=== PATIENT | female | born 1930 | race Caucasian/White ===

== ENCOUNTER → 2016-07-30 | Outpatient (CLI) | payer BC ==
[~2016-07-30] MED LIST: AMLO-110 PO; ARC5 PO; ATEN50TA PO; ATOR-26 PO; LEVO75TA PO; PANT40TA PO; PARO1TAB27 PO; TOLT4CAP PO; WARF2TAB8 PO
[2016-07-30 18:42] LABS: INR 1.3 (0.9-1.1); PROTHROMBIN TIME (PATIENT) 14.1 SECONDS (9.0-12.0)
== END | disposition home or self-care (01) ==
LOC: C.LABSPEC 17:23
PROVIDERS: ATTEND Internal Medicine
DX: Z51.81 Encounter for therapeutic drug level monitoring (principal); Z79.01 Long term (current) use of anticoagulants; Z86.711 Personal history of pulmonary embolism

== ENCOUNTER → 2016-08-27 | Outpatient (CLI) | payer BC ==
[2016-08-27 19:24] LABS: INR 2.7 (0.9-1.1); PROTHROMBIN TIME (PATIENT) 29.9 SECONDS (9.0-12.0)
== END | disposition home or self-care (01) ==
LOC: C.LABSPEC 16:00
PROVIDERS: ATTEND Internal Medicine
DX: Z86.711 Personal history of pulmonary embolism (principal); Z79.01 Long term (current) use of anticoagulants

== ENCOUNTER → 2016-10-01 | Outpatient (CLI) | payer BC ==
[2016-10-01 18:32] LABS: PROTHROMBIN TIME (PATIENT) 45.4 SECONDS (9.0-12.0)
== END | disposition home or self-care (01) ==
LOC: C.LABSPEC 17:32
PROVIDERS: ATTEND Internal Medicine
DX: Z86.711 Personal history of pulmonary embolism (principal); Z79.01 Long term (current) use of anticoagulants

== ENCOUNTER → 2016-10-29 | Outpatient (CLI) | payer BC ==
[2016-10-29 18:11] LABS: INR 1.8 (0.9-1.1); PROTHROMBIN TIME (PATIENT) 20.2 SECONDS (9.0-12.0)
== END | disposition home or self-care (01) ==
LOC: C.LABSPEC 17:21
PROVIDERS: ATTEND Internal Medicine
DX: Z86.711 Personal history of pulmonary embolism (principal); Z79.01 Long term (current) use of anticoagulants

== ENCOUNTER → 2016-11-19 | Outpatient (CLI) | payer BC ==
--- NOTE | 2016-11-19 14:53 | DIAGNOSTIC IMAGING REPORT ---
BILATERAL CAROTID DOPPLER STUDY HISTORY: CAROTID ARTERY STENOSIS, PT TO CPL AFTER COMPARISON: Carotid Doppler 08/02/2012. TECHNIQUE: Real-time, grayscale, and color Doppler sonography of the carotid arteries was performed. Imaging reviewed in the transverse and longitudinal planes. All measurements were calculated based on NASCET criteria. FINDINGS: Antegrade flow within the right vertebral artery and retrograde flow within the left vertebral artery. The brachial pressures are asymmetric measuring 164/84 on the right and 128/70 on the left. There is an associated elevated velocity within the right subclavian artery of 205 cm/s consistent with an area of stenosis. Normal velocities within the left subclavian artery which demonstrate monophasic flow. Mild calcified plaque within the bilateral carotid bifurcations. The peak systolic velocity within the right ICA is 94 cm/s. The right systolic ratio is 1.7. The peak systolic velocity within the left ICA is 159 cm/s at the mid portion. The left systolic ratio is 2.1. IMPRESSION: 1. Approximately 50-69% stenosis within the mid left internal carotid artery. 2. No hemodynamically significant stenosis within the right internal carotid artery. 3. 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 4. Monophasic waveform seen within the left subclavian artery with retrograde flow of the left vertebral artery. This favors a subclavian steal. Electronically signed by: Blas Self M.D. 11/19/2016 2:52 PM Dictated Date/Time: 11/19/2016 2:42 PM
--- NOTE | 2016-11-19 16:36 | ECHOCARDIOGRAM REPORT ---
*NOTICE TO RECEIVING LIBERTARIAN AGENCY This information is strictly Confidential and protected under [place] law. [place] law prohibits you from making any further disclosure of this information unless further disclosure is expressly permitted by the written consent of the person to whom it pertains or is authorized by law. A general authorization for the release of medical or other information is not sufficient for this purpose. Hospital accepts no responsibility if the information is made available to any other person, INCLUDING THE PATIENT. Interpretation Summary * Name: PENG KELLY Study Date: 11/19/2016 02:46 PM BP: 177/58 mmHg * Patient Location: [facility] HR: 60 * : 1930 (M/d/yyyy) Gender: Female Height: 63 in * Age: 86 yrs Ethnicity: CA Weight: 171 lb * Ordering Physician: Fabian Matthew * Referring Physician: Fabian Matthew * Performed By: Antonino Sierra RCS * * Reason For Study: AORTIC STENOSIS * BSA: 1.8 m2 * -- Conclusions -- * There is mild concentric left ventricular hypertrophy. * Left ventricular systolic function is normal. * Diastolic function appears normal. * The left atrium is moderately dilated. * The right atrium is mildly dilated. * Moderate aortic regurgitation. * No hemodynamically significant valvular aortic stenosis. * There is mild to moderate mitral regurgitation. * Right ventricular systolic pressure is normal. * Compared to an echocardiogram from 2014, the degree of aortic stenosis is essentially unchanged. The degree of aortic regurgitation is worse. Procedure Details * The study was diagnostic quality. Left Ventricle * The left ventricle is normal in size. * There is mild concentric left ventricular hypertrophy. * Left ventricular systolic function is normal. * Diastolic function appears normal. Right Ventricle * The right ventricle is normal in size and function. * The right ventricular systolic function is normal as assessed by tricuspid annular plane systolic excursion (TAPSE) (normal >1.5 cm). Atria * The left atrium is moderately dilated. * The right atrium is mildly dilated. Mitral Valve * The mitral valve is grossly normal. * There is mild to moderate mitral regurgitation. Tricuspid Valve * The tricuspid valve is not well visualized, but is grossly normal. * There is mild tricuspid regurgitation. * Right ventricular systolic pressure is normal. Aortic Valve * Aortic valve sclerosis mild, without significant aortic valvular stenosis. * No hemodynamically significant valvular aortic stenosis. * Moderate aortic regurgitation. Great Vessels * The aortic root is normal size. Pericardium/Pleural * There is no pericardial effusion. Great Vessels * Normal inferior vena cava diameter and respiratory variation suggests normal central venous pressure. MMode 2D Measurements and Calculations IVSd 1.4 cm IVSs 1.6 cm LVIDd 3.6 cm LVIDs 2.3 cm LVPWd 1.4 cm LVPWs 1.7 cm IVS/LVPW 1.0 FS 35.4 % EDV(Teich) 52.8 ml ESV(Teich) 18.1 ml EF(Teich) 65.8 % EDV(cubed) 44.9 ml ESV(cubed) 12.1 ml EF(cubed) 73.0 % % IVS thick 11.4 % % LVPW thick 25.5 % LV mass(C)d 177.3 grams LV mass(C)dI 98.0 grams/m\S\2 LV mass(C)s 138.0 grams LV mass(C)sI 76.3 grams/m\S\2 CO(Teich) 2.1 l/min CI(Teich) 1.2 l/min/m\S\2 SV(Teich) 34.7 ml SI(Teich) 19.2 ml/m\S\2 CO(cubed) 2.0 l/min CI(cubed) 1.1 l/min/m\S\2 SV(cubed) 32.8 ml SI(cubed) 18.1 ml/m\S\2 Ao root diam 2.5 cm Ao root area 4.8 cm\S\2 ACS 0.96 cm LA dimension 4.6 cm asc Aorta Diam 2.9 cm LA/Ao 1.8 LVOT diam 1.8 cm LVOT area 2.5 cm\S\2 LVAd ap4 29.2 cm\S\2 LVLd ap4 7.6 cm EDV(MOD-sp4) 92.0 ml LVAs ap4 16.9 cm\S\2 LVLs ap4 6.2 cm ESV(MOD-sp4) 38.0 ml EF(MOD-sp4) 58.7 % LVAd ap2 23.5 cm\S\2 LVLd ap2 7.4 cm EDV(MOD-sp2) 62.0 ml LVAs ap2 12.3 cm\S\2 LVLs ap2 5.9 cm ESV(MOD-sp2) 21.0 ml EF(MOD-sp2) 66.1 % CO(MOD-sp4) 3.2 l/min CI(MOD-sp4) 1.8 l/min/m\S\2 SV(MOD-sp4) 54.0 ml SI(MOD-sp4) 29.8 ml/m\S\2 CO(MOD-sp2) 2.5 l/min CI(MOD-sp2) 1.4 l/min/m\S\2 SV(MOD-sp2) 41.0 ml SI(MOD-sp2) 22.7 ml/m\S\2 Doppler Measurements and Calculations MV E max les 85.6 cm/sec MV A max les 46.3 cm/sec MV E/A 1.9 MV P1/2t max les 119.3 cm/sec MV P1/2t 100.4 msec MVA(P1/2t) 2.2 cm\S\2 MV dec slope 347.8 cm/sec\S\2 MV dec time 0.16 sec Ao V2 max 204.9 cm/sec Ao max PG 16.9 mmHg Ao max PG (full) 10.4 mmHg Ao V2 mean 122.9 cm/sec Ao mean PG 7.5 mmHg Ao V2 VTI 46.5 cm BARRERA(V,A) 1.5 cm\S\2 BARRERA(V,D) 1.5 cm\S\2 AI max les 442.1 cm/sec AI max PG 78.2 mmHg AI dec slope 295.0 cm/sec\S\2 AI P1/2t 438.9 msec LV V1 max PG 6.5 mmHg LV V1 max 127.1 cm/sec SV(Ao) 223.7 ml SI(Ao) 123.6 ml/m\S\2 PA V2 max 77.4 cm/sec PA max PG 2.4 mmHg PI max les 162.7 cm/sec PI max PG 10.7 mmHg PI dec slope 158.8 cm/sec\S\2 PI P1/2t 300.1 msec TR max les 258.6 cm/sec
== END | disposition home or self-care (01) ==
LOC: C.ULTR 13:18
PROVIDERS: ATTEND Internal Medicine
DX: Q25.1 Coarctation of aorta (principal); I65.22 Occlusion and stenosis of left carotid artery

== ENCOUNTER → 2016-12-17 | Outpatient (CLI) | payer BC ==
[2016-12-17 18:43] LABS: PROTHROMBIN TIME (PATIENT) 22.2 SECONDS (9.0-12.0)
== END | disposition home or self-care (01) ==
LOC: C.LABSPEC 08:42
PROVIDERS: ATTEND Internal Medicine
DX: Z86.711 Personal history of pulmonary embolism (principal); Z79.01 Long term (current) use of anticoagulants

== ENCOUNTER → 2017-01-21 | Outpatient (CLI) | payer BC ==
[2017-01-21 17:48] LABS: HEMATOCRIT 40.8 % (37-47); MEAN CELL VOLUME 94.9 fL (80-100); MEAN CORPUSCULAR HEMOGLOBIN 31.4 pg (25-34); MEAN CORPUSCULAR HGB CONC 33.1 g/dl (32-36); MEAN PLATELET VOLUME 11.3 fL (7.4-10.4); PLATELET COUNT 360 K/uL (130-400); WHITE BLOOD COUNT 7.83 K/uL (4.8-10.8)
[2017-01-21 17:51] LABS: INR 1.8 (0.9-1.1); PROTHROMBIN TIME (PATIENT) 19.4 SECONDS (9.0-12.0)
[2017-01-21 17:56] LABS: ALT/SGPT 21 U/L (12-78); BLOOD UREA NITROGEN 10 mg/dl (7-18); BUN/CREATININE RATIO 8.7 (10-20); CALCIUM 9.1 mg/dl (8.5-10.1); CARBON DIOXIDE 26 mmol/L (21-32); CHLORIDE 107 mmol/L (98-107); GLUCOSE 140 mg/dl (70-99); POTASSIUM 3.7 mmol/L (3.5-5.1); SODIUM 140 mmol/L (136-145)
[2017-01-21 18:06] LABS: ALB/GLOB RATIO 0.7 (0.9-2); ALKALINE PHOSPHATASE 98 U/L (45-117); AST/SGOT 18 U/L (15-37)
== END | disposition home or self-care (01) ==
LOC: C.LABSPEC 16:53
PROVIDERS: ATTEND Internal Medicine
DX: R53.83 Other fatigue (principal); I10 Essential (primary) hypertension; E03.9 Hypothyroidism, unspecified

== ENCOUNTER → 2017-04-22 | Outpatient (CLI) | payer BC ==
[2017-04-22 17:51] LABS: BASO % 0.4 %; BASO ABS # 0.04 K/uL (0-0.2); COMPLETE YES; EOS % 1.9 %; HEMATOCRIT 39.9 % (37-47); IG% 0.3 %; LYMPH % 25.2 %; MEAN CELL VOLUME 94.8 fL (80-100); MEAN CORPUSCULAR HEMOGLOBIN 31.8 pg (25-34); MEAN CORPUSCULAR HGB CONC 33.6 g/dl (32-36); MEAN PLATELET VOLUME 11.3 fL (7.4-10.4); MONO % 8.5 %; NEUT % 63.7 %; PLATELET COUNT 371 K/uL (130-400); RED BLOOD COUNT 4.21 M/uL (4.2-5.4); WHITE BLOOD COUNT 10.71 K/uL (4.8-10.8)
[2017-04-22 18:05] LABS: ALT/SGPT 26 U/L (12-78); AST/SGOT 25 U/L (15-37); BLOOD UREA NITROGEN 12 mg/dl (7-18); CALCIUM 9.5 mg/dl (8.5-10.1); CARBON DIOXIDE 29 mmol/L (21-32); CHLORIDE 103 mmol/L (98-107); CHOLESTEROL 216 mg/dl (0-200); CREATININE 0.99 mg/dl (0.60-1.20); GLUCOSE 128 mg/dl (70-99); POTASSIUM 3.7 mmol/L (3.5-5.1); SODIUM 140 mmol/L (136-145)
[2017-04-22 18:12] LABS: ALB/GLOB RATIO 0.8 (0.9-2); ALKALINE PHOSPHATASE 102 U/L (45-117); CHOLESTEROL/HDL RATIO 4.6; HDL CHOLESTEROL 47 mg/dl; THYROID STIMULATING HORMONE 0.906 uIu/ml (0.300-4.500); TRIGLYCERIDES 337 mg/dl (0-150); VERY LOW DENSITY LIPOPROT CALC 67 mg/dl
== END | disposition home or self-care (01) ==
LOC: C.LABSPEC 17:29
PROVIDERS: ATTEND Internal Medicine
DX: I10 Essential (primary) hypertension (principal); E78.5 Hyperlipidemia, unspecified; E03.9 Hypothyroidism, unspecified; I26.99 Other pulmonary embolism without acute cor pulmonale; I82.409 Acute embolism and thrombosis of unspecified deep veins of unspecified lower extremity; Z51.81 Encounter for therapeutic drug level monitoring; Z79.01 Long term (current) use of anticoagulants

== ENCOUNTER → 2017-06-24 | Outpatient (CLI) | payer BC ==
[2017-06-24 19:26] LABS: INR 1.9 (0.9-1.1); PROTHROMBIN TIME (PATIENT) 20.6 SECONDS (9.0-12.0)
== END | disposition home or self-care (01) ==
LOC: C.LABSPEC 17:30
PROVIDERS: ATTEND Internal Medicine
DX: Z86.711 Personal history of pulmonary embolism (principal); Z79.01 Long term (current) use of anticoagulants

== ENCOUNTER 2017-07-25 17:43 | Inpatient (IN) | payer BC, OTHER ==
[~2017-07-25] VITALS: Ht 160 cm; Wt 73.3 kg
[2017-07-25] MEDS ORDERED: SODIUM CHLORIDE 0.9% 1000ML 1,000 ML IV STA (17:56)
[2017-07-25 17:57] VITALS: PULSE 90; O2SAT 94
[2017-07-25 18:19] LABS: BASO % 0.1 %; BASO ABS # 0.02 K/uL (0-0.2); EOS % 0.2 %; EOS ABS # 0.03 K/uL (0-0.5); HEMATOCRIT 43.3 % (37-47); HEMOGLOBIN 14.5 g/dL (12.0-16.0); IG# 0.11 K/uL (0.00-0.02); LYMPH % 3.8 %; LYMPH ABS # 0.72 K/uL (1.2-3.4); MEAN CORPUSCULAR HEMOGLOBIN 32.2 pg (25-34); MEAN CORPUSCULAR HGB CONC 33.5 g/dl (32-36); MONO % 7.9 %; MONO ABS # 1.51 K/uL (0.11-0.59); NEUT % 87.4 %; NEUT ABS # 16.63 K/uL (1.4-6.5); PLATELET COUNT 352 K/uL (130-400); RED CELL DISTRIBUTION WIDTH CV 13.5 % (11.5-14.5); RED CELL DISTRIBUTION WIDTH SD 47.6 fL (36.4-46.3); WHITE BLOOD COUNT 19.02 K/uL (4.8-10.8)
[2017-07-25 18:27] LABS: INR 1.9 (0.9-1.1)
[2017-07-25 18:37] LABS: CALCIUM 8.8 mg/dl (8.5-10.1); CREATININE 1.46 mg/dl (0.60-1.20); POTASSIUM 3.8 mmol/L (3.5-5.1)
[2017-07-25 18:39] LABS: INFLUENZA B ANTIGEN Neg for Influ B (NEG)
[2017-07-25] MEDS ORDERED: CEFEPIME IV 1,000 MG in DEXTROSE 5% 100ML 100 ML IV STA (18:39)
[2017-07-25 18:44] LABS: CKMB 1.8 ng/ml (0.5-3.6); TOTAL PROTEIN 7.7 gm/dl (6.4-8.2)
[2017-07-25] MEDS ORDERED: PARO30TA6 PO (18:45)
[2017-07-25] MEDS ORDERED: DONE1TAB26 PO (18:45)
[2017-07-25] MEDS ORDERED: TOLT1CAP3 PO (18:45)
[2017-07-25] MEDS ORDERED: AMLO5TAB2 PO (18:45)
[2017-07-25] MEDS ORDERED: LEVO75TA5 PO (18:45)
[2017-07-25] MEDS ORDERED: PANT40TA PO (18:45)
[2017-07-25] MEDS ORDERED: ATOR-26 PO (18:45)
[2017-07-25] MEDS ORDERED: LEVAQUIN 750MG / 150ML D5W IV STA (18:50)
[2017-07-25] MEDS ORDERED: ACETAMINOPHEN 500 MG TAB PO STA (18:50)
[2017-07-25] MEDS ORDERED: MULT-1092 PO (18:53)
[2017-07-25] MEDS ORDERED: WARF4TAB43 PO ×2 (18:53)
[2017-07-25] MEDS ORDERED: FERR1TAB23 PO (18:53)
[2017-07-25] MEDS ORDERED: TPRSR/50 PO (18:53)
--- NOTE | 2017-07-25 19:23 | DIAGNOSTIC IMAGING REPORT ---
SINGLE VIEW CHEST CLINICAL HISTORY: Fever. Dyspnea. FINDINGS: An AP, portable, upright chest radiograph is compared to study dated 04/05/2014 and correlated with chest CT dated 06/26/2010. The examination is degraded by portable technique and patient rotation. A 2-lead cardiac pacemaker is unchanged in position and partially obscures the left lower chest. The heart is enlarged and there is atherosclerotic calcification of the thoracic aorta. There is pulmonary vascular congestion. A calcified mediastinal lymph node is again seen. Bilateral airspace opacities are identified. Small pleural effusions are noted. No pneumothorax is seen. The skeletal structures are osteopenic. The bony thorax is grossly intact. Complex splenic granulomas are noted in the left upper quadrant. IMPRESSION: 1. Cardiomegaly and cardiac pacemaker. There is evidence of congestive failure. 2. There are diffuse bilateral airspace opacities, likely represent interstitial edema. Correlate clinically for evidence of superimposed pneumonia. 3. Small pleural effusions are identified. Electronically signed by: Miguel Lozada M.D. 07/25/2017 7:21 PM Dictated Date/Time: 07/25/2017 7:20 PM
[2017-07-25] MEDS ORDERED: NSS + 20MEQ KCL 1000ML 1,000 ML IV SCH (20:00)
--- NOTE | 2017-07-25 20:14 | History and Physical ---
History & Physical Date & Time of Service: Jul 25, 2017 at 20:01 Chief Complaint: SOB, Primary Care Physician: Fabian Matthew M.D. History of Present Illness Source: patient 87 y/o F Hx HTN, HPL, PEs, pacer. Presents with fever cough and moderate respiratory distress. Initial P02 was in the mid 70s and systolic pressure has been between 85-100. She denies CP, N/V/D or dysuria - she was incontinent of urine and stool on arrival to the ER. Initial CXR may represent CHF and possibly B/L PNM. Labs reveal an elevated troponin, leukocytosis and SYLVIA. She had a normal echo earlier in the year and does not have a history of CHF. Past Medical/Surgical History 1) BL PE 2009 2) HTN 3) HPL 4) Depression 5) Hypothyroidism 6) Pacemaker - due to symptomatic Mobitz II 7) GERD 8) Cardiac cath 2006 - no CAD 9) Echo 2016 - normal systolic and diastolic function Family History Noncontributory due to pt age Social History Smoking Status: Never Smoker Occupational Status: retired Immunizations History of Influenza Vaccine: No Influenza Vaccine Date: Mar 27, 2010 History of Tetanus Vaccine?: Yes History of Pneumococcal: Yes Pneumococcal Date: Jun 12, 2008 History of Hepatitis B Vaccine: Unknown Multi-Drug Resistant Organisms History of MDRO: No Allergies Coded Allergies: Penicillins (Verified Allergy, Mild, 04/09/14) Clarithromycin (Verified Allergy, Unknown, 04/09/14) Home Medications Scheduled Amlodipine Besylate (Norvasc), 5 MG PO DAILY Atorvastatin (Lipitor), 80 MG PO DAILY Donepezil Hydrochloride (Donepezil Hcl), 10 MG PO DAILY Ferrous Sulfate (Iron), 325 MG PO DAILY Levothyroxine Sodium (Levothyroxine Sodium), 75 MCG PO DAILY Metoprolol Succinate (Metoprolol Succinate ER), 50 MG PO DAILY Multiple Vitamins W/ Minerals (Centrum Silver 50+Women), 1 TAB PO DAILY Pantoprazole (Protonix), 40 MG PO DAILY Paroxetine Hcl (Paroxetine Hcl), 30 MG PO DAILY Tolterodine Tartrate (Tolterodine Tartrate ER), 4 MG PO DAILY Warfarin Sodium (Warfarin Sodium), 2 MG PO 5XWK Warfarin Sodium (Warfarin Sodium), 3 MG PO 2XWK Review of Systems Constitutional: + fever, + chills, No sweats Eyes: No worsening of vision ENT: + nasal symptoms, No hearing loss Respiratory: + cough, + sputum, + shortness of breath, + dyspnea on exertion, + dyspnea at rest Cardiovascular: + orthopnea, No chest pain, No PND Abdomen: No pain, No nausea, No vomiting Musculoskeletal: No joint pain Genitourinary - Female: + urinary incontinence, No dysuria, No hematuria Neurologic: + weakness, No memory loss Psychiatric: No depression symptoms Endocrine: + fatigue Hematologic / Lymphatic: No abnormal bleeding/bruising Integumentary: No rash Physical Exam Vital Signs Date Time Temp Pulse Resp B/P (MAP) Pulse Ox O2 Delivery O2 Flow Rate FiO2 07/25/17 18:15 84 07/25/17 17:57 90 94 100 07/25/17 17:45 73 Room Air 07/25/17 17:45 38.9 86 32 91/70 73 Room Air General Appearance: + pertinent finding (Overweight, elderly female - AAO x 2 - no distress while wearing BIPAP) Head: normocephalic Eyes: normal inspection ENT: normal ENT inspection, pharynx normal Neck: supple, + JVD Respiratory/Chest: chest non-tender, + crackles (BL to mid lungs) Cardiovascular: regular rate, rhythm, + systolic murmur, + pertinent finding ( faint hear sounds) Abdomen/GI: normal bowel sounds, non tender, soft Back: normal inspection, no CVA tenderness Extremities/Musculoskelatal: normal inspection, no calf tenderness Neurologic/Psych: 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, no motor/sensory deficits, alert Skin: normal color, warm/dry Diagnostics Laboratory Results Results Past 24 Hours Test 07/25/17 17:14 07/25/17 18:05 07/25/17 18:10 07/25/17 18:17 Range/Units White Blood Count 19.02 4.8-10.8 K/uL Red Blood Count 4.51 4.2-5.4 M/uL Hemoglobin 14.5 12.0-16.0 g/dL Hematocrit 43.3 37-47 % Mean Corpuscular Volume 96.0 80-100 fL Mean Corpuscular Hemoglobin 32.2 25-34 pg Mean Corpuscular Hemoglobin Concent 33.5 32-36 g/dl Platelet Count 352 130-400 K/uL Mean Platelet Volume 11.0 7.4-10.4 fL Neutrophils (%) (Auto) 87.4 % Lymphocytes (%) (Auto) 3.8 % Monocytes (%) (Auto) 7.9 % Eosinophils (%) (Auto) 0.2 % Basophils (%) (Auto) 0.1 % Neutrophils # (Auto) 16.63 1.4-6.5 K/uL Lymphocytes # (Auto) 0.72 1.2-3.4 K/uL Monocytes # (Auto) 1.51 0.11-0.59 K/uL Eosinophils # (Auto) 0.03 0-0.5 K/uL Basophils # (Auto) 0.02 0-0.2 K/uL RDW Standard Deviation 47.6 36.4-46.3 fL RDW Coefficient of Variation 13.5 11.5-14.5 % Immature Granulocyte % (Auto) 0.6 % Immature Granulocyte # (Auto) 0.11 0.00-0.02 K/uL Prothrombin Time 19.2 9.0-12.0 SECONDS Prothromb Time International Ratio 1.9 0.9-1.1 Sodium Level 139 136-145 mmol/L Potassium Level 3.8 3.5-5.1 mmol/L Chloride Level 104 98-107 mmol/L Carbon Dioxide Level 26 21-32 mmol/L Anion Gap 9.0 3-11 mmol/L Blood Urea Nitrogen 15 7-18 mg/dl Creatinine 1.46 0.60-1.20 mg/dl Est Creatinine Clear Calc Drug Dose 25.8 ml/min Estimated GFR () 36.6 Estimated GFR (Non- 31.6 BUN/Creatinine Ratio 10.1 10-20 Random Glucose 156 70-99 mg/dl Calcium Level 8.8 8.5-10.1 mg/dl Magnesium Level 2.0 1.8-2.4 mg/dl Total Bilirubin 0.5 0.2-1 mg/dl Direct Bilirubin 0.1 0-0.2 mg/dl Aspartate Amino Transf (AST/SGOT) 30 15-37 U/L Alanine Aminotransferase (ALT/SGPT) 24 12-78 U/L Alkaline Phosphatase 92 45-117 U/L Total Creatine Kinase 103 26-192 U/L Creatine Kinase MB 1.8 0.5-3.6 ng/ml Creatine Kinase MB Ratio 1.7 0-3.0 Troponin I 0.470 0-0.045 ng/ml Total Protein 7.7 6.4-8.2 gm/dl Albumin 3.0 3.4-5.0 gm/dl Urine Color YELLOW Urine Appearance CLOUDY CLEAR Urine pH 5.0 4.5-7.5 Urine Specific [place] 1.021 1.000-1.030 Urine Protein 2+ NEG Urine Glucose (UA) NEG NEG Urine Ketones NEG NEG Urine Occult Blood TRACE NEG Urine Nitrite NEG NEG Urine Bilirubin NEG NEG Urine Urobilinogen NEG NEG Urine Leukocyte Esterase MODERATE NEG Urine WBC (Auto) >30 0-5 /hpf Urine RBC (Auto) 0-4 0-4 /hpf Urine Hyaline Casts (Auto) 1-5 0-5 /lpf Urine Epithelial Cells (Auto) 20-30 0-5 /lpf Urine Bacteria (Auto) 4+ NEG Influenza Type A Antigen Neg for Influ A NEG Influenza Type B Antigen Neg for Influ B NEG Venous Blood pH 7.35 7.36-7.41 Venous Blood Partial Pressure CO2 49 38.0-50.0 mmHg Venous Blood Partial Pressure O2 40 mmHg Venous Blood HCO3 27 mmol/L Venous Blood Oxygen Saturation 71.1 % Venous Blood Base Excess 0.2 mEq/L Test 07/25/17 18:22 Range/Units Microbiology Results 07/25/17 Blood Culture, Received Pending 07/25/17 Blood Culture, Received Pending 07/25/17 Urine Culture, Received Pending Diagnostic Radiology CXR: 1. Cardiomegaly and cardiac pacemaker. There is evidence of congestive failure. 2. There are diffuse bilateral airspace opacities, likely represent interstitial edema. Correlate clinically for evidence of superimposed pneumonia. 3. Small pleural effusions are identified EKG Sinus - possibly alternating with atrial pacing, RBBB - inferior inversion are present on previous EKG which was paced Impression Assessment and Plan 87 y/o F Hx HTN, HPL, PEs, pacer. Presents with fever cough and moderate respiratory distress. Initial P02 was in the mid 70s and systolic pressure has been between 85-100. She denies CP, N/V/D or dysuria - she was incontinent of urine and stool on arrival to the ER. Initial CXR may represent CHF and possibly B/L PNM. Labs reveal an elevated troponin, leukocytosis and SYLVIA. She had a normal echo earlier in the year and does not have a history of CHF. 1) Respiratory distress - this may be due to CHF, PNM or a combination. She has BL JVD - lung exam and imaging are consistent with CHF. Her pressure has been low however. In light of this, we will assign her to the ICU for additional management. We may need placement of a central line for induction and fluid management. 2) CHF - clinical volume overload is apparent despite a marginal BP. We will give her a dose of Lasix to assess improvement in her respiratory status. An echo is ordered. 3) Infection - presented with high temp - developed a cough and congestion prior to respiratory distress. UA is also strongly +. We have started her on Cefepime, Levaquin to cover for both urosepsis and critical pneumonia. She is provided with Duonebs/Albuterol and is on BIPAP at the time of admission. She has not recently been admitted to a health care facility. 4) Elevated troponin - an acute event leading to CHF cannot be ruled out, although her current trop elevation is more likely due to hypoxia and possibly hypotension leading to demand ischemia, in addition to her compromised renal function. She is anticoagulated with Coumadin. 5) SYLVIA - presents a management challenge due to her low BP and clinical overload - as mentioned, she is receiving a dose of Lasix presently and we may need central line induction for volume management. We would expect her SLYVIA to improve with diuresis if the main etiology is CHF. 6) HTN - Amlodipine held presently 7) Hypothyroidism - cont Synthroid 8) History of PE - pt is anticoagulated with Coumadin Code status: DNR - intubation OK Total time for this admit including review of labs, meds, imaging, EKG, records , previous echo - discussion with pt and ER attending - including critical care time - 45 min Level of Care Critical Care Resuscitation Status FULL NO CARDIOVERSION (No CPR - intubation OK) VTE Prophylaxis Given or contraindicated: Warfarin (Coumadin)
[2017-07-25] MEDS ORDERED: MoRPHine SULFATE 2 MG/ML CARP IV PRN (20:15)
[2017-07-25] MEDS ORDERED: ALBUTEROL 0.083% NEBU SOLN 3 ML VIAL INH PRN (20:15)
[2017-07-25] MEDS ORDERED: ALUMINUM/MAGNESIUM/SIMETH (MAALOX MAX) 30 ML UDC PO PRN (20:15)
[2017-07-25] MEDS ORDERED: POLYETHYLENE (MIRALAX) 17 GM PACK PO PRN (20:15)
[2017-07-25] MEDS ORDERED: MAGNESIUM HYDROXIDE SUSP 30 ML UDC PO PRN (20:15)
[2017-07-25] MEDS ORDERED: ONDANSETRON INJ 2 MG/ML 2 ML VIAL IV PRN (20:15)
[2017-07-25] MEDS: ALBUT/IPRATROP 3MG/0.5MG NEB 3 ML VIAL INH SCH (21:00)
--- NOTE | 2017-07-25 21:01 | Critical Care Consultation ---
Critical Care Consultation Date of Consultation: Jul 25, 2017. Attending Physician: Dr. Rojelio Hu Reason for Consultation: Respiratory Distress History of Present Illness Iman Manuel is an 87 yo female with history of Dementia, HTN, Hyperlipidemia, Pacemaker (2012) for Mobitz II block, hx/o GI Bleed 2/2 erosion and hypothyroidism who presented this evening via EMS for respiratory distress. Her O2 saturations were initially recorded in the 70's via EMS. 4L nasal cannula failed to cause adequate saturations. Breathing treatment and CPAP were initiated in the field. 100% FIO2 demonstrated >90% SaO2. Upon my examination pt is saturating 99-100% on 12/6 and 100% on BiPap. She is talking in complete sentences without notable SOB or accessory muscle use. She denies recent illness stating this started in the last 24 hours with cough, brown sputum without blood, and increasing shortness of breath. She denied myalgias or malaise. Did admit to anorexia today. Pt denies recent lay up, leg swelling, sudden onset of SOB. Pt does take Coumadin for prior hx of PE/DVT. EMR states Bilateral DVT/ PEs in 2006 and 2009 without Coumadin use. Pt denies chest pain/ pressure, palpitations or awareness of tachyarrhythmias. Denies N/V/D abd pain or change in bowel or bladder habits. Nursing report noted that family states pt can be incontinent of urine/stool at night, pt did not report this. Pt does live independently at this time. Upon reexamination in the ICU, patient states she is feeling much better. Sylvester catheter has been inserted with notably concentrated urine without gross hematuria. Blood pressures have improved with systolics ranging from 105-116. Upon arrival in ICU patient's BiPAP settings were reduced to 12/6 and 70%; saturations remain 95% and above. There is limited prior history on patient based on non-[facility] PCP. Patient does appear somewhat confused about prior history when asked. She did agree that she is on her Coumadin for a DVT/PE. However, she could not elaborate. Access to Dr. Chung's records from cardiology demonstrate a history of Mobitz 2 AV block, dual-chamber pacemaker placement, paroxysmal A. fib noted on pacemaker that lasts for only minutes. Prior echocardiogram read by Dr. Young on 2016 demonstrated the following conclusions: * There is mild concentric left ventricular hypertrophy * Left ventricular systolic function is normal * Diastolic function appears to be normal * Left atrium moderately dilated/right atrium mildly dilated * Moderate aortic regurgitation, mild to moderate mitral regurgitation, no hemodynamically significant valvular aortic stenosis. * Right ventricular systolic pressure is normal Patient was worked up on the same day carotid artery stenosis. Carotid Doppler demonstrated approximate 50-69% stenosis within the mid left internal carotid artery. No hemodynamically significant stenosis within the right internal carotid artery. 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 Monophasic waveforms seen within the left subclavian artery with retrograde flow of the left vertebral artery. This fever subclavian steal. Past Medical/Surgical History Medical Problems: Pneumonia Respiratory distress Troponin I above reference range Mobitz 2 AV block Paroxysmal Atrial fibrillation Hx of Bilateral DVT hx of Bilateral PE Bradycardia Hypertension Hyperlipidemia Hyperglycemia Hypothyroidism Depression/Anxiety Esophageal reflux Dementia Falls Fibula Fracture s/p fall Surgical history Pacemaker placement Family History Patient reports no known family medical history. Social History Smoking Status: Never Smoker Smokeless Tobacco Use: No Alcohol Use: occasionally (Reports 1 beer/week) Drug Use: none Housing Status: lives alone Occupation Status: retired Allergies Coded Allergies: Penicillins (Verified Allergy, Mild, 04/09/14) Clarithromycin (Verified Allergy, Unknown, 04/09/14) Home Medications Scheduled Amlodipine Besylate (Norvasc), 5 MG PO DAILY Atorvastatin (Lipitor), 80 MG PO DAILY Donepezil Hydrochloride (Donepezil Hcl), 10 MG PO DAILY Ferrous Sulfate (Iron), 325 MG PO DAILY Levothyroxine Sodium (Levothyroxine Sodium), 75 MCG PO DAILY Metoprolol Succinate (Metoprolol Succinate ER), 50 MG PO DAILY Multiple Vitamins W/ Minerals (Centrum Silver 50+Women), 1 TAB PO DAILY Pantoprazole (Protonix), 40 MG PO DAILY Paroxetine Hcl (Paroxetine Hcl), 30 MG PO DAILY Tolterodine Tartrate (Tolterodine Tartrate ER), 4 MG PO DAILY Warfarin Sodium (Warfarin Sodium), 2 MG PO 5XWK Warfarin Sodium (Warfarin Sodium), 3 MG PO 2XWK Current Inpatient Medications Current Inpatient Medications Medications (Trade) Dose Ordered Sig/Rex Route Start Time Stop Time Status Last Admin Dose Admin Cefepime HCl 1000 mg/Dextrose 111 ml @ 200 mls/hr Q8H IV 07/25/17 19:45 08/01/17 19:44 UNV Levofloxacin 750 mg/Prmx 150 ml @ 100 mls/hr Q48H IV 07/27/17 20:00 07/31/17 21:29 Amlodipine Besylate (Norvasc Tab) 5 mg DAILY PO 07/26/17 09:00 08/25/17 08:59 Atorvastatin Calcium (Lipitor Tab) 80 mg DAILY PO 07/26/17 09:00 08/25/17 08:59 Levothyroxine Sodium (Synthroid Tab) 75 mcg DAILYBB PO 07/26/17 07:00 08/25/17 06:59 Metoprolol Succinate (Toprol Xl Tab) 50 mg DAILY PO 07/26/17 09:00 08/25/17 08:59 Pantoprazole Sodium (Protonix Tab) 40 mg DAILY PO 07/26/17 09:00 08/25/17 08:59 Tolterodine Tartrate (Detrol LA Cap) 4 mg DAILY PO 07/26/17 09:00 08/25/17 08:59 Donepezil HCl (Aricept Tab) 10 mg DAILY PO 07/26/17 09:00 08/25/17 08:59 Paroxetine HCl (pAXil) 30 mg DAILY PO 07/26/17 09:00 08/25/17 08:59 Warfarin Sodium (Coumadin Tab) 3 mg SuWe@1600 PO 07/27/17 16:00 08/26/17 15:59 Warfarin Sodium (Coumadin Tab) 2 mg MoTuThFrSa@1600 PO 07/26/17 16:00 08/25/17 15:59 Acetaminophen (Tylenol Tab) 650 mg Q4H PRN PO 07/25/17 20:15 08/24/17 20:14 Al Hydrox/Mg Hydrox/Simethicone (Maalox Max Susp) 15 ml Q4H PRN PO 07/25/17 20:15 08/24/17 20:14 Magnesium Hydroxide (Milk Of Magnesia Susp) 30 ml Q12H PRN PO 07/25/17 20:15 08/24/17 20:14 Ondansetron HCl (Zofran Inj) 4 mg Q6H PRN IV 07/25/17 20:15 08/24/17 20:14 Morphine Sulfate (MoRPHine SULFATE INJ) 2 mg Q30M PRN IV 07/25/17 20:15 08/08/17 20:14 Polyethylene (Miralax Powder Packet) 17 gm DAILY PRN PO 07/25/17 20:15 08/24/17 20:14 Albuterol Sulfate (Ventolin 0.083% 2.5MG/3ML Neb) 2.5 mg Q4H PRN INH 07/25/17 20:15 08/24/17 20:14 Albuterol/ Ipratropium (Duoneb) 3 ml Q6R INH 07/25/17 21:00 08/24/17 20:59 Furosemide 40 mg/ Syringe 4 ml @ 4 mls/min ONE ONCE IV 07/25/17 21:00 07/25/17 21:01 UNV Review of Systems 12 systems reviewed and negative other than previously mentioned in the HPI. Physical Exam Date Time Temp Pulse Resp B/P (MAP) Pulse Ox O2 Delivery O2 Flow Rate FiO2 07/25/17 20:35 77 24 104/55 100 BiPAP 07/25/17 20:03 80 26 86/56 99 BiPAP 07/25/17 19:30 86 28 93/63 98 BiPAP 07/25/17 19:00 81 30 94/64 98 BiPAP 07/25/17 18:29 79 28 99/67 97 BiPAP 07/25/17 18:15 84 07/25/17 17:57 90 94 100 07/25/17 17:45 73 Room Air 07/25/17 17:45 38.9 86 32 91/70 73 Room Air Vital Signs - as noted Laboratory Data - as noted Physical Exam: General - Resting on BiPap 12/6 & 100% Eyes - PERRL, EOMI No icterus, gaze conjugate ENT - BiPap mask in place, Mucosa moist, no lesions or candidiasis Neck - Supple, trachea midline, no masses or lymphadenopathy, JVD noted without bruits Lungs - No paradoxical chest wall movement, Coarse throughout, Left crackles to bases and right wheezes noted,no rhonchi Heart - Reg rate and rhythm, No murmur, rubs, clicks, or gallops appreciated Abdomen - BS present, no bruits noted, tympanic to percussion, soft, nontender, nondistended, no organomegaly Extremities - No edema, pedal pulses intact Neuro - A&OX3 Strength extremities equal and appropriate bilaterally Reflexes: normal and equal CN:PERRL, EOMI, no facial asymmetry, uvula/tongue midline Laboratory Results Last 24 Hours Test 07/25/17 17:14 07/25/17 18:05 07/25/17 18:10 07/25/17 18:17 White Blood Count 19.02 K/uL Red Blood Count 4.51 M/uL Hemoglobin 14.5 g/dL Hematocrit 43.3 % Mean Corpuscular Volume 96.0 fL Mean Corpuscular Hemoglobin 32.2 pg Mean Corpuscular Hemoglobin Concent 33.5 g/dl Platelet Count 352 K/uL Mean Platelet Volume 11.0 fL Neutrophils (%) (Auto) 87.4 % Lymphocytes (%) (Auto) 3.8 % Monocytes (%) (Auto) 7.9 % Eosinophils (%) (Auto) 0.2 % Basophils (%) (Auto) 0.1 % Neutrophils # (Auto) 16.63 K/uL Lymphocytes # (Auto) 0.72 K/uL Monocytes # (Auto) 1.51 K/uL Eosinophils # (Auto) 0.03 K/uL Basophils # (Auto) 0.02 K/uL RDW Standard Deviation 47.6 fL RDW Coefficient of Variation 13.5 % Immature Granulocyte % (Auto) 0.6 % Immature Granulocyte # (Auto) 0.11 K/uL Prothrombin Time 19.2 SECONDS Prothromb Time International Ratio 1.9 Sodium Level 139 mmol/L Potassium Level 3.8 mmol/L Chloride Level 104 mmol/L Carbon Dioxide Level 26 mmol/L Anion Gap 9.0 mmol/L Blood Urea Nitrogen 15 mg/dl Creatinine 1.46 mg/dl Est Creatinine Clear Calc Drug Dose 25.8 ml/min Estimated GFR () 36.6 Estimated GFR (Non- 31.6 BUN/Creatinine Ratio 10.1 Random Glucose 156 mg/dl Calcium Level 8.8 mg/dl Magnesium Level 2.0 mg/dl Total Bilirubin 0.5 mg/dl Direct Bilirubin 0.1 mg/dl Aspartate Amino Transf (AST/SGOT) 30 U/L Alanine Aminotransferase (ALT/SGPT) 24 U/L Alkaline Phosphatase 92 U/L Total Creatine Kinase 103 U/L Creatine Kinase MB 1.8 ng/ml Creatine Kinase MB Ratio 1.7 Troponin I 0.470 ng/ml Total Protein 7.7 gm/dl Albumin 3.0 gm/dl Urine Color YELLOW Urine Appearance CLOUDY Urine pH 5.0 Urine Specific Mumford 1.021 Urine Protein 2+ Urine Glucose (UA) NEG Urine Ketones NEG Urine Occult Blood TRACE Urine Nitrite NEG Urine Bilirubin NEG Urine Urobilinogen NEG Urine Leukocyte Esterase MODERATE Urine WBC (Auto) >30 /hpf Urine RBC (Auto) 0-4 /hpf Urine Hyaline Casts (Auto) 1-5 /lpf Urine Epithelial Cells (Auto) 20-30 /lpf Urine Bacteria (Auto) 4+ Influenza Type A Antigen Neg for Influ A Influenza Type B Antigen Neg for Influ B Venous Blood pH 7.35 Venous Blood Partial Pressure CO2 49 mmHg Venous Blood Partial Pressure O2 40 mmHg Venous Blood HCO3 27 mmol/L Venous Blood Oxygen Saturation 71.1 % Venous Blood Base Excess 0.2 mEq/L Test 07/25/17 18:22 Diagnostic Results SINGLE VIEW CHEST CLINICAL HISTORY: Fever. Dyspnea. FINDINGS: An AP, portable, upright chest radiograph is compared to study dated 04/05/2014 and correlated with chest CT dated 06/26/2010. The examination is degraded by portable technique and patient rotation. A 2-lead cardiac pacemaker is unchanged in position and partially obscures the left lower chest. The heart is enlarged and there is atherosclerotic calcification of the thoracic aorta. There is pulmonary vascular congestion. A calcified mediastinal lymph node is again seen. Bilateral airspace opacities are identified. Small pleural effusions are noted. No pneumothorax is seen. The skeletal structures are osteopenic. The bony thorax is grossly intact. Complex splenic granulomas are noted in the left upper quadrant. IMPRESSION: 1. Cardiomegaly and cardiac pacemaker. There is evidence of congestive failure. 2. There are diffuse bilateral airspace opacities, likely represent interstitial edema. Correlate clinically for evidence of superimposed pneumonia. 3. Small pleural effusions are identified. Electronically signed by: Miguel Lozada M.D. 07/25/2017 7:21 PM Dictated Date/Time: 07/25/2017 7:20 PM [id number]/[address] & T wave abnormalities Prolonged QTc 484 Assessment & Plan Reason Critically Ill: Patient is an 87-year-old female who is transferred to the ICU for respiratory distress with possibly new onset heart failure based on pulmonary edema noted and JVD on exam. Pt is A&O x3, calm and tolerating BiPap well with saturations of 99-100% on telemetry. PLAN: Resp: * Will cover for CAP * Cefepime and Levaquin (first dose in ED 07/25/17) * Will check Procalcitonin now and q72hrs * Pt reports cough with brown sputum, no blood * Continue on BiPap and wean FIO2 as tolerated * Duoneb q6h and PRN SOB * ABG once in ICU * VBG in ED: 7.35/49/40/27 * CXR AM * Sputum & Blood Cultures ordered * PE unlikely secondary to currently on Warfarin: INR 1.9 Hx of prior PE/DVT * Ordered Lower Extremity Doppler CV: * Hypotension in setting of new onset fluid overload per CXR * Lasix ordered in ED, will monitor on telemetry * Pt consented to CVL. Dr. Hu obtained consent. * Pressures > 100 currently, if hypotensive reoccurs will insert CVL and transduce CVP to guide fluid administration * Check random cortisol * Prolonged QTc: Monitor and Repeat EKG, Avoid Medications with Prolonging effects * Elevated troponin, trend troponin * Obtain EKG on arrival to ICU * Check BNP * Denies Chest pain, pressure, N/V, or jaw/arm pain/numbness * Pacemaker, Hx ov Mobitz II Block, Paroxysmal A. Fib seen by Dr. Chung * Will Consult Cards * Repeat ECHO * Last Echo on10/2016 demonstrated mild concentric left ventricular hypertrophy , left ventricular systolic function is normal, diastolic function appears normal, left atrium moderately dilated, right atrium mildly dilated, moderate aortic regurgitation, no hemodynamically significant valvular aortic stenosis, mild to moderate mitral regurgitation, right ventricular systolic pressure is normal. There was no ejection fraction noted on this echo. * Spoke with pt regarding code status. In the EVENT of CARDIAC ARREST pt does not want CPR. * Continue home Amlodipine, Atorvastatin, and Metoprolol Neuro: * Fever: Continue Tylenol * No pain reported. * Continue home Paxil * A& O x3, No unilateral neuro signs noted * Pt denotes numbness to right foot at baseline. Fluids/Renal: * Cr 1.46 (unknown baseline. Last outpt record 11/2013 1.17) * Repeat PRP Daily * Will limit fluid resuscitation at this time based on notable fluid overload * U/A: Positive for Leukocyte Esterase and Bacteria. Negative Nitrate * Urine Culture pending * Pt already being treated with Levaquin for CAP ID: * Abx: Levaquin and Cefepime (first day of treatment 07/25/17) * Leukocytosis: 19.02 * Febrile: 38.9 * U/A suggestive of UTI * CXR: Possible CAP * Blood, Urine, Sputum Culture pending * Procalcitonin/ Lactic Acid Pending GI/Nutrition: * NPO while on BiPap * May resume diet once off BiPap * Continue home PPI Heme: * H&H 14.5/43.3; plts: 352 * PT/INR 19.2/1.9 * Pt on Coumadin for prior hx of DVT/PE * Continue home dosing Endocrine: * Accu-Checks per protocol, started insulin infusion for 2 blood sugars greater than 180 or one over 250 * No known DM diagnosis * Will Check A1C in AM * Known Hypothyroidism * Continue home dose of Levothyroxine CCT: 45 Minutes; This time is exclusive of all separately billable procedures. Thank you for involving us in the care of this patient. Please refer to Dr. Perez's addendum for further recommendations. The patient seen and examined by myself. History reviewed. The patient is hemodynamically stable while on BiPAP and is oxygenating well. Cultures are all pending. CXR reviewed. Agree with the plan of care as above and and recommendation as prescribed by my colleague Il[facility].
[2017-07-25] MEDS ORDERED: FUROSEMIDE INJ 40 MG in SYRINGE 0 ML IV ONE (21:30)
--- NOTE | 2017-07-25 21:46 | EMERGENCY ROOM VISIT NOTE ---
History Report prepared by Sheldonibdomenica: Mookie Marquis Under the Supervision of: Dr. Macario Chavez D.O. First contact with patient: 17:45 Chief Complaint: SHORTNESS OF BREATH Stated Complaint: SOB, History of Present Illness The patient is a 87 year old female who presents to the Emergency Room with complaints of worsening shortness of breath that started last night. Per EMS, the patient developed a cough and rhinorrhea last night. She reports the cough was productive with some mucous. Per EMS, the patient was short of breath since last night, which worsened today. They report her oxygen saturation was in the 70s. EMS put her on 4L of oxygen, which brought her up to 83%. They gave the patient a breathing treatment, which brought her saturation up to 89%. EMS reports that they gave the patient CPAP, which brought the saturation up to the mid 90s, They report that after her oxygen saturation was brought up, she was more comfortable. EMS states that the patient is febrile with a temperature of 99.1. The patient denies leg swelling, abdominal pain, headache, change in vision, fevers, chest pain, shortness of breath, nausea, vomiting, diarrhea, pain with urination, and melena. She admits to a history of pneumonia. The patient denies history of asthma, COPD, heart failure, and smoking. She reports that she is on Coumadin for a history of atrial fibrillation, and reports she has not missed any doses. Source of History: patient, EMS Onset: last night Position: other (global) Timing: worsening Modifying Factors (Relieving): oxygen Associated Symptoms: + cough, No fevers, No headache, No chest pain, No nausea, No vomiting, No abdominal pain, No melena, No diarrhea, No urinary symptoms Review of Systems See HPI for pertinent positives & negatives. A total of 10 systems reviewed and were otherwise negative. Past Medical & Surgical Medical Problems: (1) Pneumonia (2) Respiratory distress (3) Troponin I above reference range Family History Patient reports no known family medical history. Social History Smoking Status: Former Smoker Occupation Status: retired Current/Historical Medications Scheduled Amlodipine Besylate (Norvasc), 5 MG PO DAILY Atorvastatin (Lipitor), 80 MG PO DAILY Donepezil Hydrochloride (Donepezil Hcl), 10 MG PO DAILY Ferrous Sulfate (Iron), 325 MG PO DAILY Levothyroxine Sodium (Levothyroxine Sodium), 75 MCG PO DAILY Metoprolol Succinate (Metoprolol Succinate ER), 50 MG PO DAILY Multiple Vitamins W/ Minerals (Centrum Silver 50+Women), 1 TAB PO DAILY Pantoprazole (Protonix), 40 MG PO DAILY Paroxetine Hcl (Paroxetine Hcl), 30 MG PO DAILY Tolterodine Tartrate (Tolterodine Tartrate ER), 4 MG PO DAILY Warfarin Sodium (Warfarin Sodium), 2 MG PO 5XWK Warfarin Sodium (Warfarin Sodium), 3 MG PO 2XWK Allergies Coded Allergies: Penicillins (Verified Allergy, Mild, 04/09/14) Clarithromycin (Verified Allergy, Unknown, 04/09/14) Physical Exam Vital Signs Date Time Temp Pulse Resp B/P (MAP) Pulse Ox O2 Delivery O2 Flow Rate FiO2 07/25/17 21:33 38.3 76 28 106/53 100 BiPAP 100 07/25/17 20:35 77 24 104/55 100 BiPAP 07/25/17 20:03 80 26 86/56 99 BiPAP 07/25/17 19:30 86 28 93/63 98 BiPAP 07/25/17 19:00 81 30 94/64 98 BiPAP 07/25/17 18:29 79 28 99/67 97 BiPAP 07/25/17 18:15 84 07/25/17 17:57 90 94 100 07/25/17 17:45 73 Room Air 07/25/17 17:45 38.9 86 32 91/70 73 Room Air Physical Exam GENERAL: Sitting up in bed, comfortable, on BiPAP, but able to talk in full sentences. EYE EXAM: normal conjunctiva. OROPHARYNX: no exudate, no erythema, lips, buccal mucosa, and tongue normal and mucous membranes are moist NECK: supple, no nuchal rigidity, no adenopathy, non-tender LUNGS: Rhonchi bilaterally. Normal chest wall mechanics HEART: no murmurs, S1 normal and S2 normal ABDOMEN: abdomen soft, non-tender, normo-active bowel sounds, no masses, no rebound or guarding. BACK: Back is symmetrical on inspection and there is no deformity, no midline tenderness, no CVA tenderness. SKIN: no rashes and no bruising UPPER EXTREMITIES: upper extremities are grossly normal. LOWER EXTREMITIES: No pitting edema. Calves are equal bilaterally. NEURO EXAM: Normal sensorium, cranial nerves II-XII grossly intact, normal speech, no gross weakness of arms, no gross weakness of legs. Gross sensation intact. Medical Decision & Procedures ER Provider Diagnostic Interpretation: Radiology results as stated below per my review and the radiologist's interpretation: SINGLE VIEW CHEST CLINICAL HISTORY: Fever. Dyspnea. FINDINGS: An AP, portable, upright chest radiograph is compared to study dated 04/05/2014 and correlated with chest CT dated 06/26/2010. The examination is degraded by portable technique and patient rotation. A 2-lead cardiac pacemaker is unchanged in position and partially obscures the left lower chest. The heart is enlarged and there is atherosclerotic calcification of the thoracic aorta. There is pulmonary vascular congestion. A calcified mediastinal lymph node is again seen. Bilateral airspace opacities are identified. Small pleural effusions are noted. No pneumothorax is seen. The skeletal structures are osteopenic. The bony thorax is grossly intact. Complex splenic granulomas are noted in the left upper quadrant. IMPRESSION: 1. Cardiomegaly and cardiac pacemaker. There is evidence of congestive failure. 2. There are diffuse bilateral airspace opacities, likely represent interstitial edema. Correlate clinically for evidence of superimposed pneumonia. 3. Small pleural effusions are identified. Electronically signed by: Miguel Lozada M.D. 07/25/2017 7:21 PM Dictated Date/Time: 07/25/2017 7:20 PM Laboratory Results 07/25/17 17:14 Red Blood Count 4.51, Mean Corpuscular Volume 96.0, Mean Corpuscular Hemoglobin 32.2, Mean Corpuscular Hemoglobin Concent 33.5, Mean Platelet Volume 11.0, Neutrophils (%) (Auto) 87.4, Lymphocytes (%) (Auto) 3.8, Monocytes (%) (Auto) 7.9, Eosinophils (%) (Auto) 0.2, Basophils (%) (Auto) 0.1, Neutrophils # (Auto) 16.63, Lymphocytes # (Auto) 0.72, Monocytes # (Auto) 1.51, Eosinophils # (Auto) 0.03, Basophils # (Auto) 0.02 07/25/17 17:14 Test 07/25/17 17:14 07/25/17 18:05 07/25/17 18:10 07/25/17 18:17 White Blood Count 19.02 K/uL (4.8-10.8) Red Blood Count 4.51 M/uL (4.2-5.4) Hemoglobin 14.5 g/dL (12.0-16.0) Hematocrit 43.3 % (37-47) Mean Corpuscular Volume 96.0 fL (80-100) Mean Corpuscular Hemoglobin 32.2 pg (25-34) Mean Corpuscular Hemoglobin Concent 33.5 g/dl (32-36) Platelet Count 352 K/uL (130-400) Mean Platelet Volume 11.0 fL (7.4-10.4) Neutrophils (%) (Auto) 87.4 % Lymphocytes (%) (Auto) 3.8 % Monocytes (%) (Auto) 7.9 % Eosinophils (%) (Auto) 0.2 % Basophils (%) (Auto) 0.1 % Neutrophils # (Auto) 16.63 K/uL (1.4-6.5) Lymphocytes # (Auto) 0.72 K/uL (1.2-3.4) Monocytes # (Auto) 1.51 K/uL (0.11-0.59) Eosinophils # (Auto) 0.03 K/uL (0-0.5) Basophils # (Auto) 0.02 K/uL (0-0.2) RDW Standard Deviation 47.6 fL (36.4-46.3) RDW Coefficient of Variation 13.5 % (11.5-14.5) Immature Granulocyte % (Auto) 0.6 % Immature Granulocyte # (Auto) 0.11 K/uL (0.00-0.02) Prothrombin Time 19.2 SECONDS (9.0-12.0) Prothromb Time International Ratio 1.9 (0.9-1.1) Anion Gap 9.0 mmol/L (3-11) Est Creatinine Clear Calc Drug Dose 25.8 ml/min Estimated GFR () 36.6 Estimated GFR (Non- 31.6 BUN/Creatinine Ratio 10.1 (10-20) Calcium Level 8.8 mg/dl (8.5-10.1) Magnesium Level 2.0 mg/dl (1.8-2.4) Total Bilirubin 0.5 mg/dl (0.2-1) Direct Bilirubin 0.1 mg/dl (0-0.2) Aspartate Amino Transf (AST/SGOT) 30 U/L (15-37) Alanine Aminotransferase (ALT/SGPT) 24 U/L (12-78) Alkaline Phosphatase 92 U/L (45-117) Total Creatine Kinase 103 U/L (26-192) Creatine Kinase MB 1.8 ng/ml (0.5-3.6) Creatine Kinase MB Ratio 1.7 (0-3.0) Troponin I 0.470 ng/ml (0-0.045) Total Protein 7.7 gm/dl (6.4-8.2) Albumin 3.0 gm/dl (3.4-5.0) Urine Color YELLOW Urine Appearance CLOUDY (CLEAR) Urine pH 5.0 (4.5-7.5) Urine Specific [place] 1.021 (1.000-1.030) Urine Protein 2+ (NEG) Urine Glucose (UA) NEG (NEG) Urine Ketones NEG (NEG) Urine Occult Blood TRACE (NEG) Urine Nitrite NEG (NEG) Urine Bilirubin NEG (NEG) Urine Urobilinogen NEG (NEG) Urine Leukocyte Esterase MODERATE (NEG) Urine WBC (Auto) >30 /hpf (0-5) Urine RBC (Auto) 0-4 /hpf (0-4) Urine Hyaline Casts (Auto) 1-5 /lpf (0-5) Urine Epithelial Cells (Auto) 20-30 /lpf (0-5) Urine Bacteria (Auto) 4+ (NEG) Influenza Type A Antigen Neg for Influ A (NEG) Influenza Type B Antigen Neg for Influ B (NEG) Venous Blood pH 7.35 (7.36-7.41) Venous Blood Partial Pressure CO2 49 mmHg (38.0-50.0) Venous Blood Partial Pressure O2 40 mmHg Venous Blood HCO3 27 mmol/L Venous Blood Oxygen Saturation 71.1 % Venous Blood Base Excess 0.2 mEq/L Test 07/25/17 21:30 Laboratory results per my review. Medications Administered Medications (Trade) Dose Ordered Sig/Rex Route Start Time Stop Time Status Last Admin Dose Admin Sodium Chloride 1,000 ml @ 999 mls/hr Q1H1M STAT IV 07/25/17 17:56 07/25/17 18:56 DC 07/25/17 19:29 999 MLS/HR Cefepime HCl 1000 mg/Dextrose 111 ml @ 200 mls/hr NOW STAT IV 07/25/17 18:39 1/1/18 19:12 DC 07/25/17 19:29 200 MLS/HR Acetaminophen (Tylenol Tab) 1,000 mg NOW STAT PO 07/25/17 18:50 07/25/17 18:51 DC 07/25/17 19:29 1,000 MG Levofloxacin (Levaquin / D5W) 750 mg NOW STAT IV 07/25/17 18:50 07/25/17 18:51 DC 07/25/17 19:29 750 MG Furosemide 40 mg/ Syringe 4 ml @ 4 mls/min 2130 ONCE IV 07/25/17 21:30 07/25/17 21:31 DC 07/25/17 21:31 4 MLS/MIN ECG Indication: SOB/dyspnea Rate (beats per minute): 85 Rhythm: sinus rhythm Findings: RBBB, T-wave inversion (Anterior, inferior, lateral), other (Normal axis) ED Course ED COURSE: Vital signs were reviewed and showed hypotension. The patients medical record was reviewed The above diagnostic studies were performed and reviewed. ED treatments and interventions as stated above. 174: The patient was evaluated in room B03B. A complete history and physical examination was performed. 175: Ordered Sodium Chloride 1000 ml @ 999 mls/hr IV. 183: Ordered Cefepime HCl 1000 mg/Dextrose 111 @ 200 mls/hr IV. 1850: Ordered Levofloxacin 750 mg IV, Tylenol Tab 1000 mg PO. 1933: I reevaluated the patient and updated her on her results. I discussed the treatment plan with the patient, which she agrees to. I paged Dr. Hu. 1935: I discussed the patient's case with Dr. Hu, [facility] Hospitalist. He understands the patient's condition and agrees to accept the patient. The patient will be further evaluated. Medical Decision Differential diagnoses includes but is not limited to pneumonia, bronchitis, COPD/Asthma exacerbation, pneumothorax, pulmonary embolism, congestive heart failure, acute coronary syndrome. Patient is an 87-year-old female who presents to ER for productive cough which has been worsening over the past 24 hours associated with shortness of breath. She is found by EMS to be hypoxic. She was placed on CPAP. No history of asthma, COPD or CHF. Upon presentation to the ER she was switched to BiPAP 06/29 and was able to talk in full sentences. Labs show a leukocytosis of 19,000. ABG with a normal pH. BMP all LFTs, bilirubin was unremarkable. Troponin was elevated at 0.47. UA does suggested a UTI. Chest x-ray supports pneumonia along with some CHF. Influenza was negative. Patient was covered with broad- spectrum antibiotics including cefepime and Levaquin. She is given IV fluids. She continued on BiPAP rested comfortably while in the ER. She was admitted for sepsis secondary to pneumonia with hypotension and systolic blood pressures maintaining 90s. Patient family were updated bedside. Medication Reconcilliation Current Medication List: was personally reviewed by me Blood Pressure Screening Patient's blood pressure: Low blood pressure Consults Time Called: 1933 Consulting Physician: Dr. Hu, [facility] Hospitalist Returned Call: 1935 I discussed the patient's case with Dr. Hu, [facility] Hospitalist. He understands the patient's condition and agrees to accept the patient. The patient will be further evaluated. Impression Primary Impression: Sepsis Additional Impressions: Hypotension Hypoxia Troponin I above reference range Respiratory distress Congestive heart failure Critical Care I have personally spent 35 minutes of critical care time in the direct management of this patient. This includes bedside care, interpretation of diagnostic studies, and testing, discussion with consultants, patient, and family members, and other required patient management activities. This 35 minutes is in excess of all separately billable procedures. Scribe Attestation The scribe's documentation has been prepared under my direction and personally reviewed by me in its entirety. I confirm that the note above accurately reflects all work, treatment, procedures, and medical decision making performed by me. Departure Information Dispostion Being Evaluated By Hospitalist Referrals Fabian Matthew M.D. (PCP) Patient Instructions My [facility] Problem Qualifiers Primary Impression: Sepsis Sepsis type: sepsis due to unspecified organism Qualified Codes: A41.9 - Sepsis, unspecified organism Additional Impressions: Hypotension Hypotension type: unspecified hypotension type Qualified Codes: I95.9 - Hypotension, unspecified Congestive heart failure Congestive heart failure type: unspecified congestive heart failure type Congestive heart failure chronicity: unspecified congestive heart failure chronicity Qualified Codes: I50.9 - Heart failure, unspecified
[2017-07-25 22:15] VITALS: PULSE 66; O2SAT 94
[2017-07-25 22:37] VITALS: BP 105/46; PULSE 69; TEMP 36.3; O2SAT 95; BMI 30.3
[2017-07-25 23:00] VITALS: BP 116/53; PULSE 70; O2SAT 92
[2017-07-25 23:09] LABS: ISTAT SODIUM 141 mEq/L (135-144)
[2017-07-25] MEDS ORDERED: CEFEPIME CONSULT ACTIVE PRN (23:15)
[2017-07-25] MEDS ORDERED: LEVOFLOXACIN CONSULT ACTIVE PRN (23:15)
[2017-07-25 23:20] VITALS: BP 110/49; PULSE 68; O2SAT 94
[2017-07-25 23:59] VITALS: O2SAT 94
[2017-07-26] VITALS (27 sets, daily range): BP systolic 98–167; BP diastolic 49–83; PULSE 63–90; TEMP 36.8–38.4; O2SAT 90–97
[2017-07-26] MEDS: ALBUT/IPRATROP 3MG/0.5MG NEB 3 ML VIAL INH SCH ×4 (02:57→20:32)
[2017-07-26 05:18] LABS: HEMATOCRIT 39.5 % (37-47); HEMOGLOBIN 13.1 g/dL (12.0-16.0); MEAN CELL VOLUME 96.3 fL (80-100); MEAN CORPUSCULAR HGB CONC 33.2 g/dl (32-36); MEAN PLATELET VOLUME 10.2 fL (7.4-10.4); PLATELET COUNT 285 K/uL (130-400); RED CELL DISTRIBUTION WIDTH CV 13.7 % (11.5-14.5); RED CELL DISTRIBUTION WIDTH SD 48.3 fL (36.4-46.3); WHITE BLOOD COUNT 13.47 K/uL (4.8-10.8)
[2017-07-26 05:38] LABS: CALCIUM 8.8 mg/dl (8.5-10.1); CREATININE 1.67 mg/dl (0.60-1.20); POTASSIUM 3.9 mmol/L (3.5-5.1)
[2017-07-26 05:49] LABS: PHOSPHORUS 3.7 mg/dl (2.5-4.9)
[2017-07-26] MEDS: LEVOTHYROXINE 75 MCG TAB PO SCH (05:53)
--- NOTE | 2017-07-26 06:28 | DIAGNOSTIC IMAGING REPORT ---
ULTRASOUND VENOUS DOPPLER LWR EXT BILA CLINICAL HISTORY: Shortness of breath. History of prior DVT. Shortness of breath. COMPARISON STUDY: 06/26/2010 FINDINGS: Real-time and color flow Doppler imaging were performed. Flow was seen within the femoral, popliteal and calf veins with no intraluminal thrombus demonstrated. The saphenous vein is patent. IMPRESSION: No evidence of lower extremity DVT. Electronically signed by: Jaun Zuniga M.D. 07/26/2017 6:26 AM Dictated Date/Time: 07/26/2017 6:25 AM
[2017-07-26 07:05] LABS: CKMB 3.9 ng/ml (0.5-3.6)
--- NOTE | 2017-07-26 07:06 | DIAGNOSTIC IMAGING REPORT ---
CHEST ONE VIEW PORTABLE CLINICAL HISTORY: 87 years-old Female presenting with CHF, CAP, SOB. TECHNIQUE: Portable upright AP view of the chest was obtained. COMPARISON: 07/25/2017. FINDINGS: Left subclavian pacer with leads in the right atrium and right ventricular apex. Atherosclerosis of aortic arch. Cardiac silhouette remains enlarged. Mediastinal calcified lymph nodes noted. Prominence of the bilateral nisha and pulmonary vasculature with perihilar and basilar predominant opacities stable to slightly decreased bilaterally. However, increased size of left pleural effusion. Only trace right pleural effusion evident. No pneumothorax. Calcifications project over the left upper quadrant within the spleen. Degenerative changes of the left glenohumeral joint and spine IMPRESSION: 1. Findings consistent with slight interval decrease in pulmonary edema though increased size of left pleural effusion. 2. Trace right pleural effusion. 3. Cardiomegaly. Electronically signed by: Neal Mcgarry M.D. 07/26/2017 7:04 AM Dictated Date/Time: 07/26/2017 7:02 AM
[2017-07-26 08:50] LABS: INR 1.6 (0.9-1.1)
[2017-07-26] MEDS: TOLTERODINE TARTRATE LA 4 MG CAPCR PO SCH (09:13)
[2017-07-26] MEDS: ATORVASTATIN 40 MG TAB PO SCH (09:13)
[2017-07-26] MEDS: PAROXETINE 30 MG TAB PO SCH (09:13)
[2017-07-26] MEDS: PANTOprazole SOD 40 MG TAB PO SCH (09:13)
[2017-07-26] MEDS: METOPROLOL SUCC 50MG EXT REL TAB PO SCH (09:14)
[2017-07-26] MEDS: AMLODIPINE BESYLATE 5 MG TAB PO SCH (09:14)
[2017-07-26] MEDS: DONEPEZIL HCL 10 MG TAB PO SCH (09:14)
--- NOTE | 2017-07-26 10:06 | ECHOCARDIOGRAM REPORT ---
*NOTICE TO RECEIVING [employer] This information is strictly Confidential and protected under [place] law. [place] law prohibits you from making any further disclosure of this information unless further disclosure is expressly permitted by the written consent of the person to whom it pertains or is authorized by law. A general authorization for the release of medical or other information is not sufficient for this purpose. Hospital accepts no responsibility if the information is made available to any other person, INCLUDING THE PATIENT. Interpretation Summary * Name: PENG KELLY Study Date: 07/26/2017 06:59 AM BP: 119/49 mmHg * Patient Location: .MSICU\S\E106\S\1 HR: 75 * : 1930 (M/d/) Gender: Female Height: 62 in * Age: 87 yrs Ethnicity: [place] Weight: 171 lb * Ordering Physician: Iliana Larios * Referring Physician: Self, Referred * Performed By: Thelma Elliott RDCS * * Reason For Study: Congestive Heart Failure * BSA: 1.8 m2 * -- Conclusions -- * 1. Normal LV size, mild concentric LVH. * 2. Normal LV systolic function. LVEF 60-65%. * 3. Normal RV size and function. * 4. Grade II diastolic dysfunction. * 5. Mild to moderate aortic regurgitation. Aortic sclerosis without stenosis. * 6. Mild mitral regurgitation. * 7. Compared with prior study on 11/19/2016: No significant changes. Procedure Details * A complete two-dimensional transthoracic echocardiogram was performed (2D, M-mode, Doppler and color flow Doppler). * The study was technically difficult. * The study was technically difficult, but visualization was adequate with the administration of Definity ultrasound contrast. * There were technical limitations due to patient'spoor positioning * A contrast injection of Definity was performed to improve assessment of LV function. * Contrast was injected into an intravenous site in the left arm. * One vial of Definity ultrasound contrast was diluted in normal saline to a total volume of 10 ml. A total of '2' ml of solution was administered during imaging. * Lot # [id number] of Definity utilized for procedure. * Expiration date . * The attending nurse who injected the contrast agent was Hailee Hu RN. Left Ventricle * The left ventricle is grossly normal size. * There is mild concentric left ventricular hypertrophy. * Ejection Fraction = 60-65%. * Septal motion is consistent with conduction abnormality. Right Ventricle * There is a pacemaker lead in the right ventricle. * The right ventricular cavity size is normal (basal dimension <4.2 cm in right ventricular apical 4-chamber view). * The right ventricular systolic function is normal as assessed by tricuspid annular plane systolic excursion (TAPSE) (normal >1.5 cm). Atria * Borderline left atrial enlargement. * Right atrial size is normal. * No ASD detected; PFO is not assessed. Mitral Valve * There is mild mitral annular calcification. * There is trace mitral regurgitation. Tricuspid Valve * The tricuspid valve is not well visualized, but is grossly normal. * There is trace tricuspid regurgitation. Aortic Valve * Aortic valve sclerosis moderate, without significant aortic valvular stenosis. * Mild to moderate aortic regurgitation. Pulmonic Valve * The pulmonary valve is inadequately visualized, but the Doppler data is adequate for interpretation. * There is no pulmonic valvular stenosis. * Trace pulmonic valvular regurgitation. Great Vessels * The aortic root and proximal ascending aorta are normal sized. Pericardium/Pleural * There is no pericardial effusion. Left Ventricular Diastolic Function * Diastolic dysfunction, Grade II (pseudonormalization pattern). MMode 2D Measurements and Calculations IVSd 1.5 cm IVSs 1.5 cm LVIDd 3.7 cm LVIDs 2.6 cm LVPWd 1.3 cm LVPWs 1.7 cm IVS/LVPW 1.1 FS 29.4 % EDV(Teich) 57.6 ml ESV(Teich) 24.7 ml EF(Teich) 57.1 % EDV(cubed) 50.1 ml ESV(cubed) 17.6 ml EF(cubed) 64.8 % % IVS thick 0.61 % % LVPW thick 29.3 % LV mass(C)d 182.9 grams LV mass(C)dI 102.3 grams/m\S\2 LV mass(C)s 145.0 grams LV mass(C)sI 81.1 grams/m\S\2 SV(Teich) 32.9 ml SI(Teich) 18.4 ml/m\S\2 SV(cubed) 32.4 ml SI(cubed) 18.1 ml/m\S\2 Ao root diam 2.6 cm Ao root area 5.2 cm\S\2 ACS 1.0 cm LA dimension 3.2 cm LA/Ao 1.2 LVOT diam 1.7 cm LVOT area 2.3 cm\S\2 LVAd ap4 22.6 cm\S\2 LVLd ap4 7.6 cm EDV(MOD-sp4) 56.1 ml EDV(sp4-el) 56.7 ml LVAs ap4 11.2 cm\S\2 LVLs ap4 6.2 cm ESV(MOD-sp4) 18.1 ml ESV(sp4-el) 17.1 ml EF(MOD-sp4) 67.8 % EF(sp4-el) 69.8 % LVAd ap2 18.9 cm\S\2 LVLd ap2 6.7 cm EDV(MOD-sp2) 46.4 ml EDV(sp2-el) 45.0 ml LVAs ap2 9.9 cm\S\2 LVLs ap2 5.7 cm ESV(MOD-sp2) 15.5 ml ESV(sp2-el) 14.6 ml EF(MOD-sp2) 66.6 % EF(sp2-el) 67.4 % LVLd %diff -13.33 % EDV(MOD-bp) 52.8 ml LVLs %diff -8.74 % ESV(MOD-bp) 17.4 ml EF(MOD-bp) 67.0 % SV(MOD-sp4) 38.0 ml SI(MOD-sp4) 21.2 ml/m\S\2 SV(MOD-sp2) 30.9 ml SI(MOD-sp2) 17.3 ml/m\S\2 SV(MOD-bp) 35.4 ml SI(MOD-bp) 19.8 ml/m\S\2 SV(sp4-el) 39.6 ml SI(sp4-el) 22.1 ml/m\S\2 SV(sp2-el) 30.3 ml SI(sp2-el) 17.0 ml/m\S\2 Doppler Measurements and Calculations MV E max les 85.4 cm/sec MV A max les 67.9 cm/sec MV E/A 1.3 MV dec time 0.25 sec Ao V2 max 200.6 cm/sec Ao max PG 16.1 mmHg Ao max PG (full) 12.2 mmHg Ao V2 mean 129.0 cm/sec Ao mean PG 7.4 mmHg Ao mean PG (full) 5.3 mmHg Ao V2 VTI 38.6 cm BARRERA(I,A) 1.3 cm\S\2 BARRERA(I,D) 1.3 cm\S\2 BARRERA(V,A) 1.1 cm\S\2 BARRERA(V,D) 1.1 cm\S\2 AI max les 425.1 cm/sec AI max PG 72.4 mmHg AI dec slope 349.0 cm/sec\S\2 AI P1/2t 356.8 msec LV V1 max PG 3.9 mmHg LV V1 mean PG 2.0 mmHg LV V1 max 99.0 cm/sec LV V1 mean 66.9 cm/sec LV V1 VTI 21.9 cm SV(Ao) 202.7 ml SI(Ao) 113.3 ml/m\S\2 SV(LVOT) 49.6 ml SI(LVOT) 27.7 ml/m\S\2 PA V2 max 94.5 cm/sec PA max PG 3.6 mmHg TR max les 287.6 cm/sec
[2017-07-26] MEDS: GUAIFENESIN 600 MG TABCR PO SCH ×2 (10:50→20:23)
[2017-07-26] MEDS: ACETAMINOPHEN 325 MG TAB PO PRN ×2 (10:50→20:24)
--- NOTE | 2017-07-26 11:15 | Cardiology Consultation ---
Cardiology Consultation Date of Consultation: Jul 26, 2017. Requesting Physician: Dr. Larios Reason for Consultation: CHF Pt evaluation today including: conversation w/ patient, physical exam, lab review, review of studies, review of inpatient medication list, conversation w/ attending History of Present Illness This is an 87-year-old woman with a history of hypertension, hyperlipidemia, dimensia, dual-chamber pacemaker and paroxysmal atrial fibrillation. She presented with shortness of breath and hypoxemia on 07/25/2017. She is on warfarin, for history of DVT but it will protect her for atrial fibrillation too. She has had normal left ventricular function with possible diastolic dysfunction and moderate aortic insufficiency in the past. She has not noticed any peripheral edema, she does report eating a lot of ham over the holidays. Here she was observed to be hypoxic and have evidence of congestive heart failure on chest x-ray, additionally her renal function was diminished and she has had elevated troponin measurements. She denies chest discomfort although she is not necessarily reliable historian. She is coughing at the time of my evaluation. Past Medical/Surgical History (1) Mobitz type 2 second degree heart block Dual chamber pacemaker Paroxysmal atrial fibrillation DVT Family History Patient reports no known family medical history. Social History Smoking Status: Never Smoker History of Alcohol Use: No Review of Systems Constitutional: No fever, No weight loss, No weakness Respiratory: + shortness of breath, No cough, No wheezing, No dyspnea on exertion Cardiac: No chest pain, No orthopnea, No PND, No edema, No palpitations Abdomen: No pain, No nausea, No vomiting, No diarrhea, No GI bleeding Female : No problem reported Neurologic: No paralysis, No weakness, No numbness/tingling, No balance problems Heme: No abnormal bleeding/bruising, No clotting problems Endo: No fatigue Skin: No problem reported All Other Systems: Reviewed and Negative Allergies Coded Allergies: Penicillins (Verified Allergy, Mild, 04/09/14) Clarithromycin (Verified Allergy, Unknown, 04/09/14) Medications Current Inpatient Medications Medications (Trade) Dose Ordered Sig/Rex Route Start Time Stop Time Status Last Admin Dose Admin Cefepime HCl 1000 mg/Dextrose 111 ml @ 200 mls/hr Q24H IV 07/26/17 20:00 08/01/17 19:59 Levofloxacin 750 mg/Prmx 150 ml @ 100 mls/hr Q48H IV 07/27/17 20:00 1/7/18 21:29 Amlodipine Besylate (Norvasc Tab) 5 mg DAILY PO 07/26/17 09:00 08/25/17 08:59 07/26/17 09:14 5 MG Atorvastatin Calcium (Lipitor Tab) 80 mg DAILY PO 07/26/17 09:00 08/25/17 08:59 07/26/17 09:13 80 MG Levothyroxine Sodium (Synthroid Tab) 75 mcg DAILYBB PO 07/26/17 06:00 08/25/17 06:59 07/26/17 05:53 75 MCG Metoprolol Succinate (Toprol Xl Tab) 50 mg DAILY PO 07/26/17 09:00 08/25/17 08:59 07/26/17 09:14 50 MG Pantoprazole Sodium (Protonix Tab) 40 mg DAILY PO 07/26/17 09:00 08/25/17 08:59 07/26/17 09:13 40 MG Tolterodine Tartrate (Detrol LA Cap) 4 mg DAILY PO 07/26/17 09:00 08/25/17 08:59 07/26/17 09:13 4 MG Donepezil HCl (Aricept Tab) 10 mg DAILY PO 07/26/17 09:00 08/25/17 08:59 07/26/17 09:14 10 MG Paroxetine HCl (pAXil) 30 mg DAILY PO 07/26/17 09:00 08/25/17 08:59 07/26/17 09:13 30 MG Warfarin Sodium (Coumadin Tab) 3 mg SuWe@1600 PO 07/27/17 16:00 08/26/17 15:59 Warfarin Sodium (Coumadin Tab) 2 mg MoTuThFrSa@1600 PO 07/26/17 16:00 08/25/17 15:59 Acetaminophen (Tylenol Tab) 650 mg Q4H PRN PO 07/25/17 20:15 08/24/17 20:14 Al Hydrox/Mg Hydrox/Simethicone (Maalox Max Susp) 15 ml Q4H PRN PO 07/25/17 20:15 08/24/17 20:14 Magnesium Hydroxide (Milk Of Magnesia Susp) 30 ml Q12H PRN PO 07/25/17 20:15 08/24/17 20:14 Ondansetron HCl (Zofran Inj) 4 mg Q6H PRN IV 07/25/17 20:15 08/24/17 20:14 Morphine Sulfate (MoRPHine SULFATE INJ) 2 mg Q30M PRN IV 07/25/17 20:15 08/08/17 20:14 Polyethylene (Miralax Powder Packet) 17 gm DAILY PRN PO 07/25/17 20:15 08/24/17 20:14 Albuterol Sulfate (Ventolin 0.083% 2.5MG/3ML Neb) 2.5 mg Q4H PRN INH 07/25/17 20:15 08/24/17 20:14 Albuterol/ Ipratropium (Duoneb) 3 ml Q6R INH 07/25/17 21:00 08/24/17 20:59 07/26/17 07:42 3 ML Cefepime HCl (Consult) 1 ea UD PRN N/A 07/25/17 23:15 08/24/17 23:14 Levofloxacin (Consult) 1 ea UD PRN N/A 07/25/17 23:15 08/24/17 23:14 Guaifenesin (Mucinex Contr Rel Tab) 1,200 mg Q12 PO 07/26/17 10:00 08/25/17 09:59 Physical Exam Vital Signs Past 12 Hours Date Time Temp Pulse Resp B/P (MAP) Pulse Ox O2 Delivery O2 Flow Rate FiO2 07/26/17 09:22 80 21 167/61 (96) 97 Oxymask 8.0 07/26/17 09:00 80 21 167/61 (96) 97 Oxymask 8.0 07/26/17 08:00 37.5 87 24 140/77 (98) 92 Oxymask 8.0 07/26/17 08:00 93 Oxymask 8.0 07/26/17 07:43 79 95 50 07/26/17 07:42 79 18 95 BiPAP/CPAP 50 07/26/17 07:00 80 25 156/69 (98) 97 BiPAP 50 07/26/17 06:00 85 24 160/69 (99) 96 BiPAP 50 07/26/17 04:01 36.8 75 24 119/49 (72) 95 BiPAP 70 07/26/17 04:00 94 BiPAP 70 07/26/17 02:58 69 96 70 07/26/17 02:57 69 23 96 BiPAP/CPAP 70 07/26/17 02:01 75 17 98/55 (69) 96 07/26/17 01:00 63 23 109/50 (69) 97 07/26/17 01:00 63 23 109/50 (69) 97 07/26/17 00:31 70 21 128/57 (80) 95 07/26/17 00:00 67 25 128/57 (80) 94 BiPAP 70 07/26/17 00:00 67 25 128/57 (80) 94 07/25/17 23:59 94 BiPAP 70 07/25/17 23:20 68 24 110/49 (69) 94 07/25/17 23:00 70 25 116/53 (74) 92 Constitutional: General Apperance: heathly-appearing Level of Distress: mild distress Psychiatric: Mental Status: active & alert Head: normocephalic Eyes: EOM: EOMI ENMT: normal ENT inspection, hearing grossly normal Neck: supple, no masses Lungs: Respiratory effort: good air movement Auscultation: no wheezing, rales/crackles on the left, rales/crackles on the right Cardiovascular: Heart Auscultation: RRR, no murmurs, no rubs, no gallops Peripheral Pulses: Bruits: none appreciated Abdomen: Bowel Sounds: normal Inspection & Palpation: soft, no tenderness, guarding & rebound, no masses Musculoskeletal: normal strength (5/5 throughout) Extremities: no edema Neurologic: Cranial Nerves: grossly intact Sensation: grossly intact Data Laboratory Results: Last 24 Hours Test 07/25/17 17:14 07/25/17 18:05 07/25/17 18:10 07/25/17 18:17 White Blood Count 19.02 K/uL Red Blood Count 4.51 M/uL Hemoglobin 14.5 g/dL Hematocrit 43.3 % Mean Corpuscular Volume 96.0 fL Mean Corpuscular Hemoglobin 32.2 pg Mean Corpuscular Hemoglobin Concent 33.5 g/dl Platelet Count 352 K/uL Mean Platelet Volume 11.0 fL Neutrophils (%) (Auto) 87.4 % Lymphocytes (%) (Auto) 3.8 % Monocytes (%) (Auto) 7.9 % Eosinophils (%) (Auto) 0.2 % Basophils (%) (Auto) 0.1 % Neutrophils # (Auto) 16.63 K/uL Lymphocytes # (Auto) 0.72 K/uL Monocytes # (Auto) 1.51 K/uL Eosinophils # (Auto) 0.03 K/uL Basophils # (Auto) 0.02 K/uL RDW Standard Deviation 47.6 fL RDW Coefficient of Variation 13.5 % Immature Granulocyte % (Auto) 0.6 % Immature Granulocyte # (Auto) 0.11 K/uL Prothrombin Time 19.2 SECONDS Prothromb Time International Ratio 1.9 Sodium Level 139 mmol/L Potassium Level 3.8 mmol/L Chloride Level 104 mmol/L Carbon Dioxide Level 26 mmol/L Anion Gap 9.0 mmol/L Blood Urea Nitrogen 15 mg/dl Creatinine 1.46 mg/dl Est Creatinine Clear Calc Drug Dose 25.8 ml/min Estimated GFR () 36.6 Estimated GFR (Non- 31.6 BUN/Creatinine Ratio 10.1 Random Glucose 156 mg/dl Calcium Level 8.8 mg/dl Magnesium Level 2.0 mg/dl Total Bilirubin 0.5 mg/dl Direct Bilirubin 0.1 mg/dl Aspartate Amino Transf (AST/SGOT) 30 U/L Alanine Aminotransferase (ALT/SGPT) 24 U/L Alkaline Phosphatase 92 U/L Total Creatine Kinase 103 U/L Creatine Kinase MB 1.8 ng/ml Creatine Kinase MB Ratio 1.7 Troponin I 0.470 ng/ml Total Protein 7.7 gm/dl Albumin 3.0 gm/dl Urine Color YELLOW Urine Appearance CLOUDY Urine pH 5.0 Urine Specific [place] 1.021 Urine Protein 2+ Urine Glucose (UA) NEG Urine Ketones NEG Urine Occult Blood TRACE Urine Nitrite NEG Urine Bilirubin NEG Urine Urobilinogen NEG Urine Leukocyte Esterase MODERATE Urine WBC (Auto) >30 /hpf Urine RBC (Auto) 0-4 /hpf Urine Hyaline Casts (Auto) 1-5 /lpf Urine Epithelial Cells (Auto) 20-30 /lpf Urine Bacteria (Auto) 4+ Influenza Type A Antigen Neg for Influ A Influenza Type B Antigen Neg for Influ B Venous Blood pH 7.35 Venous Blood Partial Pressure CO2 49 mmHg Venous Blood Partial Pressure O2 40 mmHg Venous Blood HCO3 27 mmol/L Venous Blood Oxygen Saturation 71.1 % Venous Blood Base Excess 0.2 mEq/L Test 07/25/17 22:24 07/25/17 22:56 07/25/17 23:37 07/26/17 04:58 Lactic Acid Level 1.6 mmol/L Troponin I 1.810 ng/ml 2.120 ng/ml Pro-B-Type Natriuretic Peptide 53276 pg/ml Procalcitonin 3.64 ng/ml Random Cortisol 32.65 mcg/dl Bedside Hemoglobin 11.2 g/dl Bedside Hematocrit 33 % Bedside Blood Gas pH (LAB) 7.39 Bedside Blood Gas pCO2 (LAB) 42 mmHg Bedside Blood Gas pO2 (LAB) 81 mmHg Bedside Blood Gas HCO3 (LAB) 26 meq/L Bedside Blood Gas Total CO2 27 mEq/l Bedside Blood Gas Base Excess (LAB) 1.0 meq/L Bedside Blood Gas O2 Saturation 96.0 % Bedside Sodium 141 mEq/L Bedside Potassium 4.0 mEq/L Bedside Glucose 103 mg/dl White Blood Count 13.47 K/uL Red Blood Count 4.10 M/uL Hemoglobin 13.1 g/dL Hematocrit 39.5 % Mean Corpuscular Volume 96.3 fL Mean Corpuscular Hemoglobin 32.0 pg Mean Corpuscular Hemoglobin Concent 33.2 g/dl RDW Standard Deviation 48.3 fL RDW Coefficient of Variation 13.7 % Platelet Count 285 K/uL Mean Platelet Volume 10.2 fL Sodium Level 142 mmol/L Potassium Level 3.9 mmol/L Chloride Level 107 mmol/L Carbon Dioxide Level 27 mmol/L Anion Gap 8.0 mmol/L Blood Urea Nitrogen 21 mg/dl Creatinine 1.67 mg/dl Est Creatinine Clear Calc Drug Dose 22.5 ml/min Estimated GFR () 31.1 Estimated GFR (Non- 26.8 BUN/Creatinine Ratio 12.9 Random Glucose 99 mg/dl Estimated Average Glucose 126 mg/dl Hemoglobin A1c 6.0 % Calcium Level 8.8 mg/dl Phosphorus Level 3.7 mg/dl Magnesium Level 2.0 mg/dl Creatine Kinase MB 3.9 ng/ml Test 07/26/17 06:27 07/26/17 08:34 07/26/17 10:08 Creatine Kinase MB Ratio Prothrombin Time 16.7 SECONDS Prothromb Time International Ratio 1.6 Imaging: Chest x-ray is consistent with CHF EKG: Initially sinus rhythm with diffuse nonspecific ST-T abnormalities, a second electrocardiogram is faster and shows a right bundle branch block pattern. Telemetry reviewed: Sinus rhythm with intermittent ventricular pacing. Echocardiogram: Normal left ventricular size and function, left ventricular hypertrophy, mild to moderate aortic insufficiency. Assessment & Plan #1. CHF: I suspect this is due to dietary indiscretion, her left ventricular function has not changed, it appears uric valve is not changed appreciably and it sounds like it was Xarelto weekly recent change in her status. I would recommend diuresis to see if this improves. #2. Elevated cardiac enzymes: It is little bit unusual that her initial troponin was 0.47 and it reynaldo to over 2 on the third, to my knowledge she does not of coronary disease but she certainly could. I would continue to follow them but would not pursue invasive evaluation (she remains asymptomatic from chest points standpoint and she does not have ST elevation). If the enzymes continue to climb we can repeat the echocardiogram to make sure she is not developing a myocarditis or some other issue. #3. Hypoxia: I suspect at least part is congestive heart failure, although there may be a component of a pulmonic process. Hopefully this will improve with diuresis. #4. Pacemaker: She has not had a recent pacemaker evaluation (last evaluation is November 2016) however at that time was functioning normally and on telemetry appears to be functioning normally. She is scheduled to come in for a pacemaker evaluation in November of this year. It may be worth interrogating her pacemaker while she is here and I will arrange that. Thank you for allowing me to participate in her care.
--- NOTE | 2017-07-26 11:16 | Critical Care Progress Note ---
Critical Care Progress Note Date of Service Jul 26, 2017. ICU Day ICU Day Number: [address] Valero Subjective pleasant without complaint. No chest pain, no shortness of breath, + thirst. Objective Physical Exam: General - Resting on oxymask, warm to touch Eyes - PERRL, Neck - Supple, trachea midline, no masses or lymphadenopathy Lungs - Rhonchi through all lung puckett Heart - Tachycardia Extremities - trace edema, pedal pulses intact Strength extremities equal and appropriate bilaterally Current SOFA Score SOFA Score Response (Comments) Value Platelets (x10) > 150 0 Bilirubin (mg/dL) < 1.2 0 [place] Coma Score 15 0 Level of Hypotension No Hypotension 0 Creatinine (mg/dL) 1.2 - 1.9 1 Total 1 Assessment & Plan Reason Critically Ill: Patient is an 87-year-old female who is transferred to the ICU for respiratory distress with possibly new onset heart failure based on pulmonary edema noted and JVD on exam. Pt is A&O x3, calm and tolerating BiPap well with saturations of 99-100% on telemetry. PLAN: Resp: * Will cover for CAP * Cefepime and Levaquin (first dose in ED 07/25/17) * Will check Procalcitonin now and q72hrs * Pt reports cough with brown sputum, no blood * sent PCR influenza * CXR AM * Sputum & Blood Cultures ordered * PE unlikely secondary to currently on Warfarin: INR 1.9 Hx of prior PE/DVT * Ordered Lower Extremity Doppler: Negative * Chest physiotherapy CV: * Hypotension in setting of new onset fluid overload per CXR * Reviewed ECHO * grade 2 diastolic dysfunction * mild-mod aortic regurgitation * Prolonged QTc: Monitor continue to monitor while on levaquin * Elevated troponin, trend troponin * Obtain EKG on arrival to ICU * Denies Chest pain, pressure, N/V, or jaw/arm pain/numbness * Pacemaker, Hx ov Mobitz II Block, Paroxysmal A. Fib seen by Dr. Chung * Will Consult Cards * Repeat ECHO * Last Echo on10/2016 demonstrated mild concentric left ventricular hypertrophy , left ventricular systolic function is normal, diastolic function appears normal, left atrium moderately dilated, right atrium mildly dilated, moderate aortic regurgitation, no hemodynamically significant valvular aortic stenosis, mild to moderate mitral regurgitation, right ventricular systolic pressure is normal. There was no ejection fraction noted on this echo. * Spoke with pt regarding code status. In the EVENT of CARDIAC ARREST pt does not want CPR. * Continue home Amlodipine, Atorvastatin, and Metoprolol * D/W Cardiology. * Limited bedside ECHO, type A/B profile. Will give trial of diuretics Neuro: * Fever: Continue Tylenol * No pain reported. * Continue home Paxil * A& O x3, No unilateral neuro signs noted * Pt denotes numbness to right foot at baseline. Fluids/Renal: * Cr 1.46 (unknown baseline. Last outpt record 11/2013 1.17) * Repeat PRP Daily * Will limit fluid resuscitation at this time based on notable fluid overload * Diuretics today. * U/A: Positive for Leukocyte Esterase and Bacteria. Negative Nitrate * Urine Culture pending * Pt already being treated with Levaquin for CAP ID: * Abx: Levaquin and Cefepime (first day of treatment 07/25/17) * Leukocytosis: 19.02 * Febrile: 38.9 * U/A suggestive of UTI * CXR: Possible CAP * Blood, Urine, Sputum Culture pending GI/Nutrition: * AHA low salt diet with 1500 fluid restriction * Continue home PPI Heme: * H&H 14.5/43.3; plts: 352 * PT/INR 19.2/1.9 * Pt on Coumadin for prior hx of DVT/PE * Continue home dosing, monitor for increase Endocrine: * Accu-Checks per protocol, started insulin infusion for 2 blood sugars greater than 180 or one over 250 * No known DM diagnosis * Will Check A1C in AM * Known Hypothyroidism * Continue home dose of Levothyroxine I have personally spent 60 minutes of critical care time in the direct management of this patient. This is a life/limb threatening event. This includes time spent evaluating patient, direct bedside care, chart review, placing orders, interpretation of diagnostic studies, discussion with consultants, patient, and family members, as well as other required patient management activities. This time is exclusive of all separately billable procedures, and teaching time and separate from and in addition to any other critical care service time. Consults & Procedures Consultants: Cardiology Procedures: ECHO 07/26/17 Data Medications: Current Inpatient Medications Medications (Trade) Dose Ordered Sig/Rex Route Start Time Stop Time Status Last Admin Dose Admin Cefepime HCl 1000 mg/Dextrose 111 ml @ 200 mls/hr Q24H IV 07/26/17 20:00 18/18 19:59 Levofloxacin 750 mg/Prmx 150 ml @ 100 mls/hr Q48H IV 07/27/17 20:00 07/31/17 21:29 Amlodipine Besylate (Norvasc Tab) 5 mg DAILY PO 07/26/17 09:00 08/25/17 08:59 07/26/17 09:14 5 MG Atorvastatin Calcium (Lipitor Tab) 80 mg DAILY PO 07/26/17 09:00 08/25/17 08:59 07/26/17 09:13 80 MG Levothyroxine Sodium (Synthroid Tab) 75 mcg DAILYBB PO 07/26/17 06:00 08/25/17 06:59 07/26/17 05:53 75 MCG Metoprolol Succinate (Toprol Xl Tab) 50 mg DAILY PO 07/26/17 09:00 08/25/17 08:59 07/26/17 09:14 50 MG Pantoprazole Sodium (Protonix Tab) 40 mg DAILY PO 07/26/17 09:00 08/25/17 08:59 07/26/17 09:13 40 MG Tolterodine Tartrate (Detrol LA Cap) 4 mg DAILY PO 07/26/17 09:00 08/25/17 08:59 07/26/17 09:13 4 MG Donepezil HCl (Aricept Tab) 10 mg DAILY PO 07/26/17 09:00 08/25/17 08:59 07/26/17 09:14 10 MG Paroxetine HCl (pAXil) 30 mg DAILY PO 07/26/17 09:00 08/25/17 08:59 07/26/17 09:13 30 MG Warfarin Sodium (Coumadin Tab) 3 mg SuWe@1600 PO 07/27/17 16:00 08/26/17 15:59 Warfarin Sodium (Coumadin Tab) 2 mg MoTuThFrSa@1600 PO 07/26/17 16:00 08/25/17 15:59 Acetaminophen (Tylenol Tab) 650 mg Q4H PRN PO 07/25/17 20:15 08/24/17 20:14 Al Hydrox/Mg Hydrox/Simethicone (Maalox Max Susp) 15 ml Q4H PRN PO 07/25/17 20:15 08/24/17 20:14 Magnesium Hydroxide (Milk Of Magnesia Susp) 30 ml Q12H PRN PO 07/25/17 20:15 08/24/17 20:14 Ondansetron HCl (Zofran Inj) 4 mg Q6H PRN IV 07/25/17 20:15 08/24/17 20:14 Morphine Sulfate (MoRPHine SULFATE INJ) 2 mg Q30M PRN IV 07/25/17 20:15 08/08/17 20:14 Polyethylene (Miralax Powder Packet) 17 gm DAILY PRN PO 07/25/17 20:15 08/24/17 20:14 Albuterol Sulfate (Ventolin 0.083% 2.5MG/3ML Neb) 2.5 mg Q4H PRN INH 07/25/17 20:15 08/24/17 20:14 Albuterol/ Ipratropium (Duoneb) 3 ml Q6R INH 07/25/17 21:00 08/24/17 20:59 07/26/17 07:42 3 ML Cefepime HCl (Consult) 1 ea UD PRN N/A 07/25/17 23:15 08/24/17 23:14 Levofloxacin (Consult) 1 ea UD PRN N/A 07/25/17 23:15 08/24/17 23:14 Guaifenesin (Mucinex Contr Rel Tab) 1,200 mg Q12 PO 07/26/17 10:00 08/25/17 09:59 UNV Vital Signs: Date Time Temp Pulse Resp B/P (MAP) Pulse Ox O2 Delivery O2 Flow Rate FiO2 07/26/17 09:22 80 21 167/61 (96) 97 Oxymask 8.0 07/26/17 09:00 80 21 167/61 (96) 97 Oxymask 8.0 07/26/17 08:00 37.5 87 24 140/77 (98) 92 Oxymask 8.0 07/26/17 08:00 93 Oxymask 8.0 07/26/17 07:43 79 95 50 07/26/17 07:42 79 18 95 BiPAP/CPAP 50 07/26/17 07:00 80 25 156/69 (98) 97 BiPAP 50 07/26/17 06:00 85 24 160/69 (99) 96 BiPAP 50 07/26/17 04:01 36.8 75 24 119/49 (72) 95 BiPAP 70 07/26/17 04:00 94 BiPAP 70 07/26/17 02:58 69 96 70 07/26/17 02:57 69 23 96 BiPAP/CPAP 70 07/26/17 02:01 75 17 98/55 (69) 96 07/26/17 01:00 63 23 109/50 (69) 97 07/26/17 01:00 63 23 109/50 (69) 97 07/26/17 00:31 70 21 128/57 (80) 95 07/26/17 00:00 67 25 128/57 (80) 94 BiPAP 70 07/26/17 00:00 67 25 128/57 (80) 94 07/25/17 23:59 94 BiPAP 70 07/25/17 23:20 68 24 110/49 (69) 94 07/25/17 23:00 70 25 116/53 (74) 92 07/25/17 22:37 36.3 69 26 105/46 95 BiPAP 70 07/25/17 22:15 66 94 70 07/25/17 21:33 38.3 76 28 106/53 100 BiPAP 100 07/25/17 20:35 77 24 104/55 100 BiPAP 07/25/17 20:03 80 26 86/56 99 BiPAP 100 07/25/17 19:30 86 28 93/63 98 BiPAP 100 07/25/17 19:00 81 30 94/64 98 BiPAP 100 07/25/17 18:29 79 28 99/67 97 BiPAP 100 07/25/17 18:15 84 07/25/17 17:57 90 94 100 07/25/17 17:45 73 Room Air 07/25/17 17:45 38.9 86 32 91/70 73 Room Air Laboratory Results: Last 24 Hours Test 07/25/17 17:14 07/25/17 18:05 07/25/17 18:10 07/25/17 18:17 White Blood Count 19.02 K/uL Red Blood Count 4.51 M/uL Hemoglobin 14.5 g/dL Hematocrit 43.3 % Mean Corpuscular Volume 96.0 fL Mean Corpuscular Hemoglobin 32.2 pg Mean Corpuscular Hemoglobin Concent 33.5 g/dl Platelet Count 352 K/uL Mean Platelet Volume 11.0 fL Neutrophils (%) (Auto) 87.4 % Lymphocytes (%) (Auto) 3.8 % Monocytes (%) (Auto) 7.9 % Eosinophils (%) (Auto) 0.2 % Basophils (%) (Auto) 0.1 % Neutrophils # (Auto) 16.63 K/uL Lymphocytes # (Auto) 0.72 K/uL Monocytes # (Auto) 1.51 K/uL Eosinophils # (Auto) 0.03 K/uL Basophils # (Auto) 0.02 K/uL RDW Standard Deviation 47.6 fL RDW Coefficient of Variation 13.5 % Immature Granulocyte % (Auto) 0.6 % Immature Granulocyte # (Auto) 0.11 K/uL Prothrombin Time 19.2 SECONDS Prothromb Time International Ratio 1.9 Sodium Level 139 mmol/L Potassium Level 3.8 mmol/L Chloride Level 104 mmol/L Carbon Dioxide Level 26 mmol/L Anion Gap 9.0 mmol/L Blood Urea Nitrogen 15 mg/dl Creatinine 1.46 mg/dl Est Creatinine Clear Calc Drug Dose 25.8 ml/min Estimated GFR () 36.6 Estimated GFR (Non- 31.6 BUN/Creatinine Ratio 10.1 Random Glucose 156 mg/dl Calcium Level 8.8 mg/dl Magnesium Level 2.0 mg/dl Total Bilirubin 0.5 mg/dl Direct Bilirubin 0.1 mg/dl Aspartate Amino Transf (AST/SGOT) 30 U/L Alanine Aminotransferase (ALT/SGPT) 24 U/L Alkaline Phosphatase 92 U/L Total Creatine Kinase 103 U/L Creatine Kinase MB 1.8 ng/ml Creatine Kinase MB Ratio 1.7 Troponin I 0.470 ng/ml Total Protein 7.7 gm/dl Albumin 3.0 gm/dl Urine Color YELLOW Urine Appearance CLOUDY Urine pH 5.0 Urine Specific [place] 1.021 Urine Protein 2+ Urine Glucose (UA) NEG Urine Ketones NEG Urine Occult Blood TRACE Urine Nitrite NEG Urine Bilirubin NEG Urine Urobilinogen NEG Urine Leukocyte Esterase MODERATE Urine WBC (Auto) >30 /hpf Urine RBC (Auto) 0-4 /hpf Urine Hyaline Casts (Auto) 1-5 /lpf Urine Epithelial Cells (Auto) 20-30 /lpf Urine Bacteria (Auto) 4+ Influenza Type A Antigen Neg for Influ A Influenza Type B Antigen Neg for Influ B Venous Blood pH 7.35 Venous Blood Partial Pressure CO2 49 mmHg Venous Blood Partial Pressure O2 40 mmHg Venous Blood HCO3 27 mmol/L Venous Blood Oxygen Saturation 71.1 % Venous Blood Base Excess 0.2 mEq/L Test 07/25/17 22:24 07/25/17 22:56 07/25/17 23:37 07/26/17 04:58 Lactic Acid Level 1.6 mmol/L Troponin I 1.810 ng/ml 2.120 ng/ml Pro-B-Type Natriuretic Peptide 05209 pg/ml Procalcitonin 3.64 ng/ml Random Cortisol 32.65 mcg/dl Bedside Hemoglobin 11.2 g/dl Bedside Hematocrit 33 % Bedside Blood Gas pH (LAB) 7.39 Bedside Blood Gas pCO2 (LAB) 42 mmHg Bedside Blood Gas pO2 (LAB) 81 mmHg Bedside Blood Gas HCO3 (LAB) 26 meq/L Bedside Blood Gas Total CO2 27 mEq/l Bedside Blood Gas Base Excess (LAB) 1.0 meq/L Bedside Blood Gas O2 Saturation 96.0 % Bedside Sodium 141 mEq/L Bedside Potassium 4.0 mEq/L Bedside Glucose 103 mg/dl White Blood Count 13.47 K/uL Red Blood Count 4.10 M/uL Hemoglobin 13.1 g/dL Hematocrit 39.5 % Mean Corpuscular Volume 96.3 fL Mean Corpuscular Hemoglobin 32.0 pg Mean Corpuscular Hemoglobin Concent 33.2 g/dl RDW Standard Deviation 48.3 fL RDW Coefficient of Variation 13.7 % Platelet Count 285 K/uL Mean Platelet Volume 10.2 fL Sodium Level 142 mmol/L Potassium Level 3.9 mmol/L Chloride Level 107 mmol/L Carbon Dioxide Level 27 mmol/L Anion Gap 8.0 mmol/L Blood Urea Nitrogen 21 mg/dl Creatinine 1.67 mg/dl Est Creatinine Clear Calc Drug Dose 22.5 ml/min Estimated GFR () 31.1 Estimated GFR (Non- 26.8 BUN/Creatinine Ratio 12.9 Random Glucose 99 mg/dl Estimated Average Glucose 126 mg/dl Hemoglobin A1c 6.0 % Calcium Level 8.8 mg/dl Phosphorus Level 3.7 mg/dl Magnesium Level 2.0 mg/dl Creatine Kinase MB 3.9 ng/ml Test 07/26/17 06:27 07/26/17 08:34 Creatine Kinase MB Ratio Prothrombin Time 16.7 SECONDS Prothromb Time International Ratio 1.6
[2017-07-26] MEDS ORDERED: BUMETANIDE IV 1 MG in SYRINGE 0 ML IV ONE (11:30)
[2017-07-26] MEDS ORDERED: WARFARIN SOD 3 MG TAB PO ONE (11:30)
[2017-07-26 11:42] LABS: INFLUENZA B PCR Neg for Influ B (NEG)
[2017-07-26 11:44] LABS: INFLUENZA A PCR POS for Influ A (NEG)
--- NOTE | 2017-07-26 12:26 | Clinical Documentation Query ---
CLINICAL DOCUMENTATION QUERY Query #1/4 ED impression was that this person presented with sepsis. She was febrile, tachypneic, hypoxic, and leukocytotic. In your clinical opinion is this patient being managed for: ( x ) Possible Sepsis in setting of UTI and/or Pneumonia ( ) Not Agree Query #2/4 This patient presented with hypotension and CHF. Since admission troponin's have trended upward. In your clinical opinion is this patient being managed for: ( ) NSTEMI causing Acute diastolic CHF and hemodynamic compromise. ( x ) Type II TX in setting of Sepsis and hypotension. ( ) Not Agree ( ) Other explanation of clinical findings (Please Explain) ( ) Unable to determine (Please Define) ( ) Need to Discuss The medical record reflects the following clinical findings, treatment, and risk factors. Clinical Indicators: Hypotension 90's/70's, tachypnea 32, hypoxia 73%, + JVD + crackles Treatment: BiPAP, IV Lasix, IV Bumex, ICU hemodynamic monitoring, Cardiology consult Risk Factors: Age, HTN, Hyperlipidemia, Query #3/4 In your clinical opinion is this patient being managed for: (x ) Acute hypoxic respiratory failure in setting of CHF and/or pneumonia treated Lasix, Bumex, BiPAP, and ICU monitoring. ( ) Not Agree ( ) Other explanation of clinical findings (Please Explain) ( ) Unable to determine (Please Define) ( ) Need to Discuss The medical record reflects the following clinical findings, treatment, and risk factors. Clinical Indicators: Tachypnea 32, Hypoxia 73%, + shortness of breath, + dyspnea on exertion, + dyspnea at rest, + JVD + crackles Treatment: BiPAP, IV Lasix, IV Bumex, IV Levofloxacin, IV Cefepime, ICU hemodynamic monitoring, Risk Factors: Age, Pacemaker, CHF, pneumonia, ?sepsis Query #4/4 In your clinical opinion is this patient being managed for: ( x ) possible Acute diastolic (perserved EF) CHF treated with BiPAP, IV Bumex, IV Lasix, & Cardiology consult. ( ) Not Agree ( ) Other explanation of clinical findings (Please Explain) ( ) Unable to determine (Please Define) ( ) Need to Discuss The medical record reflects the following clinical findings, treatment, and risk factors. Clinical Indicators: CHF, +Troponin's 0.471, 1.810, 2.120, Grade II diastolic dysfunction per Echo. Treatment: BiPAP, IV Lasix, IV Bumex, ICU hemodynamic monitoring, Cardiology consult Risk Factors: Age, infection, ?TX Please clarify and document your clinical opinion in the progress notes and discharge summary. Terms such as "probable", "suspected", "likely", "questionable", "possible", or "still to be ruled out" are acceptable. IF IN AGREEMENT, YOU MUST DOCUMENT ABOVE DIAGNOSTIC STATEMENT IN DAILY PROGRESS NOTES AND DISCHARGE SUMMARY. This document is not part of the patient's record. Thank You, Fidencio Bruce, RN [phone]
[2017-07-26] MEDS ORDERED: OSELTAMIVIR PHOSPHATE SUSP 30 MG/5 ML UDP PO ONE (12:42)
[2017-07-26] MEDS ORDERED: WARFARIN SOD 3 MG TAB PO SCH (16:00)
--- NOTE | 2017-07-26 17:52 | Progress Note ---
Subjective Date of Service: Jul 26, 2017. Subjective Pt evaluation today including: conversation w/ patient, physical exam, chart review, lab review, review of studies (echo, cxr), conversation w/ program evaluation consultant ( critical care), review of inpatient medication list Pain: denies cp or abd pain PO Intake: fair Voiding: murray catheter in place staff report that tele was normal overnight very little UOP with lasix given last pm when told that she has pneumonia the patient stated "oh, I do?" she told me during the visit "I feel ok" tolerating oxymask Problem List Medical Problems: (1) Congestive heart failure Status: Acute (2) Hypotension Status: Acute (3) Hypoxia Status: Acute (4) Sepsis Status: Acute Review of Systems Constitutional: No fever Respiratory: No dyspnea at rest Cardiac: No chest pain Abdomen: No pain Objective Vital Signs Date Time Temp Pulse Resp B/P (MAP) Pulse Ox O2 Delivery O2 Flow Rate FiO2 07/26/17 16:24 High Flow Oxygen 07/26/17 16:00 37.2 81 25 127/54 (78) 92 Oxymask 10.0 07/26/17 14:11 77 22 92 Nasal Cannula 45.0 60 07/26/17 14:00 76 31 123/54 (77) 90 High Flow Oxygen 45.0 60 07/26/17 12:00 High Flow Oxygen 07/26/17 12:00 37.2 79 25 127/54 (78) 92 High Flow Oxygen 07/26/17 11:00 83 24 152/83 (106) 94 07/26/17 10:00 83 25 166/57 (93) 94 07/26/17 09:00 80 21 167/61 (96) 97 Oxymask 8.0 07/26/17 08:00 37.5 87 24 140/77 (98) 92 Oxymask 8.0 07/26/17 08:00 93 Oxymask 8.0 07/26/17 08:00 Oxymask 07/26/17 07:43 79 95 50 07/26/17 07:42 79 18 95 BiPAP/CPAP 50 07/26/17 07:00 80 25 156/69 (98) 97 BiPAP 50 07/26/17 06:00 85 24 160/69 (99) 96 BiPAP 50 07/26/17 04:01 36.8 75 24 119/49 (72) 95 BiPAP 70 07/26/17 04:00 94 BiPAP 70 07/26/17 02:58 69 96 70 07/26/17 02:57 69 23 96 BiPAP/CPAP 70 07/26/17 02:01 75 17 98/55 (69) 96 07/26/17 01:00 63 23 109/50 (69) 97 07/26/17 01:00 63 23 109/50 (69) 97 07/26/17 00:31 70 21 128/57 (80) 95 07/26/17 00:00 67 25 128/57 (80) 94 BiPAP 70 07/26/17 00:00 67 25 128/57 (80) 94 07/25/17 23:59 94 BiPAP 70 07/25/17 23:20 68 24 110/49 (69) 94 07/25/17 23:00 70 25 116/53 (74) 92 07/25/17 22:37 36.3 69 26 105/46 95 BiPAP 70 07/25/17 22:15 66 94 70 07/25/17 21:33 38.3 76 28 106/53 100 BiPAP 100 07/25/17 20:35 77 24 104/55 100 BiPAP 07/25/17 20:03 80 26 86/56 99 BiPAP 100 07/25/17 19:30 86 28 93/63 98 BiPAP 100 07/25/17 19:00 81 30 94/64 98 BiPAP 100 07/25/17 18:29 79 28 99/67 97 BiPAP 100 07/25/17 18:15 84 07/25/17 17:57 90 94 100 07/25/17 17:45 73 Room Air 07/25/17 17:45 38.9 86 32 91/70 73 Room Air Physical Exam General Appearance: no apparent distress ENT: + pertinent finding (MM dry) Neck: no JVD Respiratory/Chest: no respiratory distress, no accessory muscle use, + crackles (b/l ), + wheezing (extensive b/l ) Cardiovascular: regular rate, rhythm, no gallop, no murmur Abdomen: normal bowel sounds, non tender, soft, no organomegaly Extremities: no pedal edema Neurologic/Psychiatric: alert, + disoriented Skin: no rash Laboratory Results Last 24 Hours Test 07/25/17 18:05 07/25/17 18:10 07/25/17 18:17 07/25/17 22:24 Urine Color YELLOW Urine Appearance CLOUDY Urine pH 5.0 Urine Specific Henderson 1.021 Urine Protein 2+ Urine Glucose (UA) NEG Urine Ketones NEG Urine Occult Blood TRACE Urine Nitrite NEG Urine Bilirubin NEG Urine Urobilinogen NEG Urine Leukocyte Esterase MODERATE Urine WBC (Auto) >30 /hpf Urine RBC (Auto) 0-4 /hpf Urine Hyaline Casts (Auto) 1-5 /lpf Urine Epithelial Cells (Auto) 20-30 /lpf Urine Bacteria (Auto) 4+ Influenza Type A Antigen Neg for Influ A Influenza Type B Antigen Neg for Influ B Venous Blood pH 7.35 Venous Blood Partial Pressure CO2 49 mmHg Venous Blood Partial Pressure O2 40 mmHg Venous Blood HCO3 27 mmol/L Venous Blood Oxygen Saturation 71.1 % Venous Blood Base Excess 0.2 mEq/L Lactic Acid Level 1.6 mmol/L Troponin I 1.810 ng/ml Pro-B-Type Natriuretic Peptide 62757 pg/ml Procalcitonin 3.64 ng/ml Random Cortisol 32.65 mcg/dl Test 07/25/17 22:56 07/25/17 23:37 07/26/17 04:58 07/26/17 06:27 Bedside Hemoglobin 11.2 g/dl Bedside Hematocrit 33 % Bedside Blood Gas pH (LAB) 7.39 Bedside Blood Gas pCO2 (LAB) 42 mmHg Bedside Blood Gas pO2 (LAB) 81 mmHg Bedside Blood Gas HCO3 (LAB) 26 meq/L Bedside Blood Gas Total CO2 27 mEq/l Bedside Blood Gas Base Excess (LAB) 1.0 meq/L Bedside Blood Gas O2 Saturation 96.0 % Bedside Sodium 141 mEq/L Bedside Potassium 4.0 mEq/L Bedside Glucose 103 mg/dl White Blood Count 13.47 K/uL Red Blood Count 4.10 M/uL Hemoglobin 13.1 g/dL Hematocrit 39.5 % Mean Corpuscular Volume 96.3 fL Mean Corpuscular Hemoglobin 32.0 pg Mean Corpuscular Hemoglobin Concent 33.2 g/dl RDW Standard Deviation 48.3 fL RDW Coefficient of Variation 13.7 % Platelet Count 285 K/uL Mean Platelet Volume 10.2 fL Sodium Level 142 mmol/L Potassium Level 3.9 mmol/L Chloride Level 107 mmol/L Carbon Dioxide Level 27 mmol/L Anion Gap 8.0 mmol/L Blood Urea Nitrogen 21 mg/dl Creatinine 1.67 mg/dl Est Creatinine Clear Calc Drug Dose 22.5 ml/min Estimated GFR () 31.1 Estimated GFR (Non- 26.8 BUN/Creatinine Ratio 12.9 Random Glucose 99 mg/dl Estimated Average Glucose 126 mg/dl Hemoglobin A1c 6.0 % Calcium Level 8.8 mg/dl Phosphorus Level 3.7 mg/dl Magnesium Level 2.0 mg/dl Creatine Kinase MB 3.9 ng/ml Troponin I 2.120 ng/ml Creatine Kinase MB Ratio Test 07/26/17 08:34 07/26/17 10:08 07/26/17 13:00 07/26/17 16:31 Prothrombin Time 16.7 SECONDS Prothromb Time International Ratio 1.6 Influenza Type A (RT-PCR) POS for Influ A Influenza Type B (RT-PCR) Neg for Influ B Troponin I 1.520 ng/ml Bedside Glucose 114 mg/dl Assessment and Plan 87yo female with: 1. acute hypoxic respiratory failure 2nd to influenza type A infection, possible superimposed pneumonia, +/- acute/chronic diastolic CHF - O2, supportive care, management per ICU attending. 2. influenza type A infection - tamiflu x 5 days. 3. possible bacterial pneumonia - agree with current antibiotic selection. Follow blood cx's. 4. sepsis 2nd to #2, #3 - improving. 5. acute renal failure 2nd to #4 - modestly worse today - possibly sepsis- associated ATN vs worsening creatinine in midst of attempted diuresis vs other. BMP in am. 6. possible acute/chronic diastolic CHF - cxr today slightly improved from previous, but UOP poor s/p lasix last evening. Cardiology consult appreciated. Defer management to ICU/cardiology. 7. dementia - cont aricept. 8. PAF / pacemaker status - on coumadin, INR subtherapeutic. Defer management to ICU. 9. hypothyroidism - cont synthroid; TSH 03/2017 was wnl. 10. positive troponin - likely myocardial demand ischemia in setting of sepsis & flu A infection. 11. HTN - BPs initially low at ER presentation and have stabilized but cont to be low-normal. Would hold home meds. PT, OT when able Continued [facility] stay due to: inadequate po fluid intake, multiple IV medications needed Discharge planning: uncertain
[2017-07-26] MEDS ORDERED: CEFEPIME IV 1,000 MG in DEXTROSE 5% 100ML 100 ML IV SCH (20:00)
[2017-07-26] MEDS: CEFEPIME IV 1,000 MG in SYRINGE 0 ML IV SCH (20:22)
[2017-07-27] VITALS (16 sets, daily range): BP systolic 132–185; BP diastolic 55–81; PULSE 66–100; TEMP 36.8–37.8; O2SAT 94–99; Ht 160 cm; Wt 73.3 kg
[2017-07-27] MEDS: ALBUT/IPRATROP 3MG/0.5MG NEB 3 ML VIAL INH SCH ×4 (02:18→20:48)
[2017-07-27 04:49] LABS: BASO % 0.3 %; BASO ABS # 0.03 K/uL (0-0.2); EOS % 0.3 %; EOS ABS # 0.03 K/uL (0-0.5); HEMATOCRIT 38.6 % (37-47); HEMOGLOBIN 12.8 g/dL (12.0-16.0); IG# 0.11 K/uL (0.00-0.02); LYMPH % 9.2 %; LYMPH ABS # 0.89 K/uL (1.2-3.4); MEAN CELL VOLUME 94.6 fL (80-100); MEAN CORPUSCULAR HEMOGLOBIN 31.4 pg (25-34); MEAN CORPUSCULAR HGB CONC 33.2 g/dl (32-36); MEAN PLATELET VOLUME 10.6 fL (7.4-10.4); MONO % 9.8 %; MONO ABS # 0.95 K/uL (0.11-0.59); NEUT % 79.3 %; NEUT ABS # 7.69 K/uL (1.4-6.5); PLATELET COUNT 275 K/uL (130-400); RED CELL DISTRIBUTION WIDTH CV 13.5 % (11.5-14.5); RED CELL DISTRIBUTION WIDTH SD 46.7 fL (36.4-46.3)
[2017-07-27 04:57] LABS: INR 1.7 (0.9-1.1)
[2017-07-27 05:07] LABS: CALCIUM 8.8 mg/dl (8.5-10.1); CREATININE 1.67 mg/dl (0.60-1.20); POTASSIUM 3.6 mmol/L (3.5-5.1)
[2017-07-27 05:29] LABS: PHOSPHORUS 2.9 mg/dl (2.5-4.9)
[2017-07-27] MEDS: LEVOTHYROXINE 75 MCG TAB PO SCH (05:57)
--- NOTE | 2017-07-27 07:51 | Critical Care Progress Note ---
Critical Care Progress Note Date of Service Jul 27, 2017. ICU Day ICU Day Number: [address] Valero Subjective No complaints of chest pain. Tolerating nasal cannula Objective Physical Exam: General - Resting on oxymask, Eyes - PERRL, Neck - Supple, trachea midline, no masses or lymphadenopathy Lungs - Rhonchi through all lung puckett Heart - Tachycardia Extremities - trace edema, pedal pulses intact Strength extremities equal and appropriate bilaterally Current SOFA Score SOFA Score Response (Comments) Value Platelets (x10) > 150 0 Bilirubin (mg/dL) < 1.2 0 Joe Coma Score 15 0 Level of Hypotension No Hypotension 0 Creatinine (mg/dL) 1.2 - 1.9 1 Total 1 Assessment & Plan PLAN: Resp: * Influenza pneumonia * On Tamiflu coverage * Possible community-acquired pneumonia : Sputum culture growing normal eneida * Discontinued cefepime * Levaquin (first dose in ED 07/25/17) QTC decreased from admission * Will check Procalcitonin now and q72hrs * Pt reports cough with brown sputum, no blood * PE unlikely secondary to currently on Warfarin: INR 1.9 Hx of prior PE/DVT * Ordered Lower Extremity Doppler: Negative * Chest physiotherapy CV: * Hypotension: Resolved * Reviewed ECHO * grade 2 diastolic dysfunction * mild-mod aortic regurgitation * Prolonged QTc: Likely medication effect: Resolved * Elevated troponin, downtrending * Pacemaker, Hx ov Mobitz II Block, Paroxysmal A. Fib seen by Dr. Chung: Reviewed consultation * Repeat ECHO * Last Echo on10/2016 demonstrated mild concentric left ventricular hypertrophy , left ventricular systolic function is normal, diastolic function appears normal, left atrium moderately dilated, right atrium mildly dilated, moderate aortic regurgitation, no hemodynamically significant valvular aortic stenosis, mild to moderate mitral regurgitation, right ventricular systolic pressure is normal. There was no ejection fraction noted on this echo. * Spoke with pt regarding code status. In the EVENT of CARDIAC ARREST pt does not want CPR. * Continue home Amlodipine, Atorvastatin, metoprolol increased by cardiology * D/W Cardiology. Neuro: * Fever: Continue Tylenol * No pain reported. * Continue home Paxil * A& O x3, No unilateral neuro signs noted Fluids/Renal: * Cr 1.67 up from 1.4 * Holding diuretics at this time * Will limit fluid resuscitation at this time based on notable fluid overload * Urinary tract infection * Urine Culture pansensitive Escherichia coli, awaiting Escherichia coli #2 * Pt already being treated with Levaquin for CAP ID: * Abx: Levaquin (first day of treatment 07/25/17) * Influenza * Will continue antibiotics for 7 day course of her until protocol returns to baseline GI/Nutrition: * AHA low salt diet with 1500 fluid restriction * Continue home PPI Heme: * H&H 14.5/43.3; plts: 352 * PT/INR 19.2/1.9 * Pt on Coumadin for prior hx of DVT/PE * Continue home dosing, monitor for increase Endocrine: * Accu-Checks per protocol, started insulin infusion for 2 blood sugars greater than 180 or one over 250 * No known DM diagnosis * Will Check A1C in AM * Known Hypothyroidism * Continue home dose of Levothyroxine Patient stable for downgraded to telemetry status today Consults & Procedures Consultants: Cardiology Procedures: ECHO 07/26/17 Data Medications: Current Inpatient Medications Medications (Trade) Dose Ordered Sig/Rex Route Start Time Stop Time Status Last Admin Dose Admin Levofloxacin 750 mg/Prmx 150 ml @ 100 mls/hr Q48H IV 07/27/17 20:00 07/31/17 21:29 Amlodipine Besylate (Norvasc Tab) 5 mg DAILY PO 07/26/17 09:00 08/25/17 08:59 07/26/17 09:14 5 MG Atorvastatin Calcium (Lipitor Tab) 80 mg DAILY PO 07/26/17 09:00 08/25/17 08:59 07/26/17 09:13 80 MG Levothyroxine Sodium (Synthroid Tab) 75 mcg DAILYBB PO 07/26/17 06:00 08/25/17 06:59 07/27/17 05:57 75 MCG Metoprolol Succinate (Toprol Xl Tab) 50 mg DAILY PO 07/26/17 09:00 08/25/17 08:59 07/26/17 09:14 50 MG Pantoprazole Sodium (Protonix Tab) 40 mg DAILY PO 07/26/17 09:00 08/25/17 08:59 07/26/17 09:13 40 MG Tolterodine Tartrate (Detrol LA Cap) 4 mg DAILY PO 07/26/17 09:00 08/25/17 08:59 07/26/17 09:13 4 MG Donepezil HCl (Aricept Tab) 10 mg DAILY PO 07/26/17 09:00 08/25/17 08:59 07/26/17 09:14 10 MG Paroxetine HCl (pAXil) 30 mg DAILY PO 07/26/17 09:00 08/25/17 08:59 07/26/17 09:13 30 MG Warfarin Sodium (Coumadin Tab) 3 mg SuWe@1600 PO 07/27/17 16:00 08/26/17 15:59 Warfarin Sodium (Coumadin Tab) 2 mg MoTuThFrSa@1600 PO 07/26/17 16:00 08/25/17 15:59 Future hold Acetaminophen (Tylenol Tab) 650 mg Q4H PRN PO 07/25/17 20:15 08/24/17 20:14 07/26/17 20:24 650 MG Al Hydrox/Mg Hydrox/Simethicone (Maalox Max Susp) 15 ml Q4H PRN PO 07/25/17 20:15 08/24/17 20:14 Magnesium Hydroxide (Milk Of Magnesia Susp) 30 ml Q12H PRN PO 07/25/17 20:15 08/24/17 20:14 Ondansetron HCl (Zofran Inj) 4 mg Q6H PRN IV 07/25/17 20:15 08/24/17 20:14 Morphine Sulfate (MoRPHine SULFATE INJ) 2 mg Q30M PRN IV 07/25/17 20:15 08/08/17 20:14 Polyethylene (Miralax Powder Packet) 17 gm DAILY PRN PO 07/25/17 20:15 08/24/17 20:14 Albuterol Sulfate (Ventolin 0.083% 2.5MG/3ML Neb) 2.5 mg Q4H PRN INH 07/25/17 20:15 08/24/17 20:14 Albuterol/ Ipratropium (Duoneb) 3 ml Q6R INH 07/25/17 21:00 08/24/17 20:59 07/27/17 02:18 3 ML Cefepime HCl (Consult) 1 ea UD PRN N/A 07/25/17 23:15 08/24/17 23:14 Levofloxacin (Consult) 1 ea UD PRN N/A 07/25/17 23:15 08/24/17 23:14 Guaifenesin (Mucinex Contr Rel Tab) 1,200 mg Q12 PO 07/26/17 10:00 08/25/17 09:59 07/26/17 20:23 1,200 MG Oseltamivir Phosphate (Tamiflu Susp) 30 mg DAILY PO 07/27/17 09:00 07/30/17 09:01 Cefepime HCl 1000 mg/Syringe 11 ml @ 5.5 mls/min Q24H IV 07/26/17 20:00 08/01/17 19:59 07/26/17 20:22 5.5 MLS/MIN Vital Signs: Date Time Temp Pulse Resp B/P (MAP) Pulse Ox O2 Delivery O2 Flow Rate FiO2 07/27/17 06:00 82 28 138/70 (92) 95 High Flow Oxygen 45.0 70 07/27/17 04:00 37.8 76 26 178/69 (105) 94 High Flow Oxygen 45.0 70 07/27/17 04:00 96 High Flow Oxygen 70 07/27/17 02:18 78 20 97 Nasal Cannula 45.0 60 07/27/17 02:00 79 22 150/73 (98) 97 High Flow Oxygen 45.0 70 07/27/17 00:01 36.8 78 29 150/55 (86) 96 High Flow Oxygen 45.0 70 07/26/17 23:59 96 High Flow Oxygen 70 07/26/17 22:00 72 28 99/61 (74) 94 High Flow Oxygen 45.0 70 07/26/17 20:33 90 20 91 Nasal Cannula 45.0 60 07/26/17 20:00 38.4 84 20 133/66 (88) 91 High Flow Oxygen 45.0 70 07/26/17 20:00 92 High Flow Oxygen 70 07/26/17 18:30 84 29 94 07/26/17 18:00 87 26 159/64 (95) 94 High Flow Oxygen 45.0 70 07/26/17 16:24 High Flow Oxygen 07/26/17 16:00 37.2 81 25 127/54 (78) 92 Oxymask 10.0 07/26/17 14:11 77 22 92 Nasal Cannula 45.0 60 07/26/17 14:00 76 31 123/54 (77) 90 High Flow Oxygen 45.0 60 07/26/17 12:00 High Flow Oxygen 07/26/17 12:00 37.2 79 25 127/54 (78) 92 High Flow Oxygen 07/26/17 11:00 83 24 152/83 (106) 94 07/26/17 10:00 83 25 166/57 (93) 94 07/26/17 09:00 80 21 167/61 (96) 97 Oxymask 8.0 07/26/17 08:00 37.5 87 24 140/77 (98) 92 Oxymask 8.0 07/26/17 08:00 93 Oxymask 8.0 07/26/17 08:00 Oxymask Laboratory Results: Last 24 Hours Test 07/26/17 08:34 07/26/17 10:08 07/26/17 13:00 07/26/17 16:31 Prothrombin Time 16.7 SECONDS Prothromb Time International Ratio 1.6 Influenza Type A (RT-PCR) POS for Influ A Influenza Type B (RT-PCR) Neg for Influ B Troponin I 1.520 ng/ml Bedside Glucose 114 mg/dl Test 07/27/17 04:31 White Blood Count 9.70 K/uL Red Blood Count 4.08 M/uL Hemoglobin 12.8 g/dL Hematocrit 38.6 % Mean Corpuscular Volume 94.6 fL Mean Corpuscular Hemoglobin 31.4 pg Mean Corpuscular Hemoglobin Concent 33.2 g/dl Platelet Count 275 K/uL Mean Platelet Volume 10.6 fL Neutrophils (%) (Auto) 79.3 % Lymphocytes (%) (Auto) 9.2 % Monocytes (%) (Auto) 9.8 % Eosinophils (%) (Auto) 0.3 % Basophils (%) (Auto) 0.3 % Neutrophils # (Auto) 7.69 K/uL Lymphocytes # (Auto) 0.89 K/uL Monocytes # (Auto) 0.95 K/uL Eosinophils # (Auto) 0.03 K/uL Basophils # (Auto) 0.03 K/uL RDW Standard Deviation 46.7 fL RDW Coefficient of Variation 13.5 % Immature Granulocyte % (Auto) 1.1 % Immature Granulocyte # (Auto) 0.11 K/uL Prothrombin Time 17.8 SECONDS Prothromb Time International Ratio 1.7 Sodium Level 136 mmol/L Potassium Level 3.6 mmol/L Chloride Level 102 mmol/L Carbon Dioxide Level 27 mmol/L Anion Gap 7.0 mmol/L Blood Urea Nitrogen 28 mg/dl Creatinine 1.67 mg/dl Est Creatinine Clear Calc Drug Dose 22.4 ml/min Estimated GFR () 31.1 Estimated GFR (Non- 26.8 BUN/Creatinine Ratio 16.5 Random Glucose 105 mg/dl Calcium Level 8.8 mg/dl Phosphorus Level 2.9 mg/dl Magnesium Level 1.9 mg/dl
[2017-07-27] MEDS: GUAIFENESIN 600 MG TABCR PO SCH ×2 (08:53→20:21)
[2017-07-27] MEDS: AMLODIPINE BESYLATE 5 MG TAB PO SCH (08:53)
[2017-07-27] MEDS: PAROXETINE 30 MG TAB PO SCH (08:53)
[2017-07-27] MEDS: TOLTERODINE TARTRATE LA 4 MG CAPCR PO SCH (08:53)
[2017-07-27] MEDS: METOPROLOL SUCC 50MG EXT REL TAB PO SCH (08:54)
[2017-07-27] MEDS: PANTOprazole SOD 40 MG TAB PO SCH (08:54)
[2017-07-27] MEDS: DONEPEZIL HCL 10 MG TAB PO SCH (08:54)
[2017-07-27] MEDS: ATORVASTATIN 40 MG TAB PO SCH (08:54)
[2017-07-27] MEDS: OSELTAMIVIR PHOSPHATE SUSP 30 MG/5 ML UDP PO SCH (08:55)
[2017-07-27] MEDS ORDERED: METOPROLOL SUCC 25MG EXT REL TAB PO STA (09:54)
--- NOTE | 2017-07-27 09:54 | Cardiology Follow-Up ---
Subjective Date of Service: Jul 27, 2017. Pt evaluation today including: conversation w/ patient, physical exam, lab review, review of inpatient medication list History of Present Illness This is an 87-year-old woman with a history of hypertension, hyperlipidemia, dimensia, dual-chamber pacemaker and paroxysmal atrial fibrillation. She presented with shortness of breath and hypoxemia on 07/25/2017. She is on warfarin, for history of DVT but it will protect her for atrial fibrillation too. She has had normal left ventricular function with possible diastolic dysfunction and moderate aortic insufficiency in the past. She has not noticed any peripheral edema, she does report eating a lot of ham over the holidays. Here she was observed to be hypoxic and to have evidence of congestive heart failure on chest x-ray, additionally her renal function was diminished and she has had elevated troponin measurements. She denies chest discomfort although she is not necessarily reliable historian. Today she has no complaints, she was sleeping when I walked into the room but was arousable. Social History Smoking Status: Never Smoker History of Alcohol Use: No Review of Systems Respiratory: No shortness of breath, No dyspnea at rest Cardiac: No chest pain Medications Cardiovascular: Item Value Date Time Warfarin Sodium 3 mg 07/27/17 1600 (Coumadin Tab) SuWe@1600/PO Warfarin Sodium 2 mg 07/26/17 1600 (Coumadin Tab) MoTuThFrSa@1600/PO Amlodipine 5 mg 07/26/17 0900 Besylate DAILY/PO 07/27/17 0853 (Norvasc Tab) Atorvastatin 80 mg 07/26/17 0900 Calcium DAILY/PO 07/27/17 0854 (Lipitor Tab) Metoprolol 50 mg 07/26/17 0900 Succinate DAILY/PO 07/27/17 0854 (Toprol Xl Tab) Objective Vital Signs Past 12 Hours Date Time Temp Pulse Resp B/P (MAP) Pulse Ox O2 Delivery O2 Flow Rate FiO2 07/27/17 08:00 High Flow Oxygen 70 07/27/17 08:00 37.6 90 19 185/81 (115) 97 High Flow Oxygen 45.0 70 07/27/17 06:00 82 28 138/70 (92) 95 High Flow Oxygen 45.0 70 07/27/17 04:00 37.8 76 26 178/69 (105) 94 High Flow Oxygen 45.0 70 1/3/18 04:00 96 High Flow Oxygen 70 07/27/17 02:18 78 20 97 Nasal Cannula 45.0 60 07/27/17 02:00 79 22 150/73 (98) 97 High Flow Oxygen 45.0 70 07/27/17 00:01 36.8 78 29 150/55 (86) 96 High Flow Oxygen 45.0 70 07/26/17 23:59 96 High Flow Oxygen 70 07/26/17 22:00 72 28 99/61 (74) 94 High Flow Oxygen 45.0 70 Last Recorded Weight-Kilograms: 74.400 Physical Exam Constitutional: Level of Distress: NAD Lungs: Respiratory effort: good air movement Auscultation: breath sounds normal, no wheezing Cardiovascular: Heart Auscultation: RRR, no murmurs, no rubs, no gallops Peripheral Pulses: Bruits: none appreciated Extremities: no edema Data Laboratory Results: Last 24 Hours Test 07/26/17 10:08 07/26/17 13:00 07/26/17 16:31 07/27/17 04:31 Influenza Type A (RT-PCR) POS for Influ A Influenza Type B (RT-PCR) Neg for Influ B Troponin I 1.520 ng/ml Bedside Glucose 114 mg/dl White Blood Count 9.70 K/uL Red Blood Count 4.08 M/uL Hemoglobin 12.8 g/dL Hematocrit 38.6 % Mean Corpuscular Volume 94.6 fL Mean Corpuscular Hemoglobin 31.4 pg Mean Corpuscular Hemoglobin Concent 33.2 g/dl Platelet Count 275 K/uL Mean Platelet Volume 10.6 fL Neutrophils (%) (Auto) 79.3 % Lymphocytes (%) (Auto) 9.2 % Monocytes (%) (Auto) 9.8 % Eosinophils (%) (Auto) 0.3 % Basophils (%) (Auto) 0.3 % Neutrophils # (Auto) 7.69 K/uL Lymphocytes # (Auto) 0.89 K/uL Monocytes # (Auto) 0.95 K/uL Eosinophils # (Auto) 0.03 K/uL Basophils # (Auto) 0.03 K/uL RDW Standard Deviation 46.7 fL RDW Coefficient of Variation 13.5 % Immature Granulocyte % (Auto) 1.1 % Immature Granulocyte # (Auto) 0.11 K/uL Prothrombin Time 17.8 SECONDS Prothromb Time International Ratio 1.7 Sodium Level 136 mmol/L Potassium Level 3.6 mmol/L Chloride Level 102 mmol/L Carbon Dioxide Level 27 mmol/L Anion Gap 7.0 mmol/L Blood Urea Nitrogen 28 mg/dl Creatinine 1.67 mg/dl Est Creatinine Clear Calc Drug Dose 22.4 ml/min Estimated GFR () 31.1 Estimated GFR (Non- 26.8 BUN/Creatinine Ratio 16.5 Random Glucose 105 mg/dl Calcium Level 8.8 mg/dl Phosphorus Level 2.9 mg/dl Magnesium Level 1.9 mg/dl Telemetry reviewed: Sinus rhythm, no atrial arrhythmia overnight Assessment and Plan #1. CHF: She did receive diuretics, her creatinine is up slightly today and she does not seem to be in a lot of congestive heart failure. Probably not try to diurese much more. #2. Elevated cardiac enzymes: Her troponins have dropped back down now, this is still probably consistent with demand ischemia not in acute ischemic process. #3. Hypoxia: I suspect at least part is congestive heart failure, although there may be a component of a pulmonic process. #4. Pacemaker: She has not had a recent pacemaker evaluation (last evaluation is November 2016) however at that time was functioning normally and on telemetry appears to be functioning normally. She is scheduled to come in for a pacemaker evaluation in November of this year. It may be worth interrogating her pacemaker while she is here and I will arrange that. #5. Hypertension: Her blood pressure is markedly elevated. I'm going to increase her beta blockade. Thank you for allowing me to participate in her care.
--- NOTE | 2017-07-27 14:49 | DIAGNOSTIC IMAGING REPORT ---
CHEST ONE VIEW PORTABLE HISTORY: 87 years-old Female acute resp failure, b/l infiltrates, interval change acute respiratory failure COMPARISON: Portable chest radiograph 07/26/2017 TECHNIQUE: Portable AP view of the chest FINDINGS: Cardiac silhouette is moderately enlarged. Left subclavian pacer is again noted which appears unchanged. Atherosclerosis of the aorta. No pneumothorax. Trace right with small to moderate left pleural effusions. Pulmonary vascular congestion with mild pulmonary edema is unchanged. Patchy bibasilar alveolar opacities, left greater the right also appear unchanged. Bones appear grossly intact. IMPRESSION: 1. Cardiomegaly with unchanged mild pulmonary edema. 2. Trace right and small moderate left pleural effusions with bibasilar opacities suggesting atelectasis or pneumonitis. The above report was generated using voice recognition software. It may contain grammatical, syntax or spelling errors. Electronically signed by: Conrad Myers M.D. 07/27/2017 2:47 PM Dictated Date/Time: 07/27/2017 2:42 PM
--- NOTE | 2017-07-27 14:52 | Hospitalist Progress Note ---
Hospitalist Progress Note Date of Service Jul 27, 2017. (Indigo Kimble ., JAZMINC) Subjective Pt evaluation today including: conversation w/ family, physical exam, lab review, review of studies, review of inpatient medication list Voiding: murray catheter in place Patient sitting up in bed eating lunch. Pleasantly confused. Denies any complaints. Limited ROS due to dementia: denies chest pain, shortness of breath, abdominal pain, any other pains/aches. (Indigo Kimble ., JAZMINC) Medications Current Inpatient Medications Medications (Trade) Dose Ordered Sig/Rex Route Start Time Stop Time Status Last Admin Dose Admin Amlodipine Besylate (Norvasc Tab) 5 mg DAILY PO 07/26/17 09:00 08/25/17 08:59 07/27/17 08:53 5 MG Atorvastatin Calcium (Lipitor Tab) 80 mg DAILY PO 07/26/17 09:00 08/25/17 08:59 07/27/17 08:54 80 MG Levothyroxine Sodium (Synthroid Tab) 75 mcg DAILYBB PO 07/26/17 06:00 08/25/17 06:59 07/27/17 05:57 75 MCG Pantoprazole Sodium (Protonix Tab) 40 mg DAILY PO 07/26/17 09:00 08/25/17 08:59 07/27/17 08:54 40 MG Tolterodine Tartrate (Detrol LA Cap) 4 mg DAILY PO 07/26/17 09:00 08/25/17 08:59 07/27/17 08:53 4 MG Donepezil HCl (Aricept Tab) 10 mg DAILY PO 07/26/17 09:00 08/25/17 08:59 07/27/17 08:54 10 MG Paroxetine HCl (pAXil) 30 mg DAILY PO 07/26/17 09:00 08/25/17 08:59 07/27/17 08:53 30 MG Warfarin Sodium (Coumadin Tab) 3 mg SuWe@1600 PO 07/27/17 16:00 08/26/17 15:59 Warfarin Sodium (Coumadin Tab) 2 mg MoTuThFrSa@1600 PO 07/26/17 16:00 08/25/17 15:59 Future hold Acetaminophen (Tylenol Tab) 650 mg Q4H PRN PO 07/25/17 20:15 08/24/17 20:14 07/26/17 20:24 650 MG Al Hydrox/Mg Hydrox/Simethicone (Maalox Max Susp) 15 ml Q4H PRN PO 07/25/17 20:15 08/24/17 20:14 Magnesium Hydroxide (Milk Of Magnesia Susp) 30 ml Q12H PRN PO 07/25/17 20:15 08/24/17 20:14 Ondansetron HCl (Zofran Inj) 4 mg Q6H PRN IV 07/25/17 20:15 08/24/17 20:14 Morphine Sulfate (MoRPHine SULFATE INJ) 2 mg Q30M PRN IV 07/25/17 20:15 08/08/17 20:14 Polyethylene (Miralax Powder Packet) 17 gm DAILY PRN PO 07/25/17 20:15 08/24/17 20:14 Albuterol Sulfate (Ventolin 0.083% 2.5MG/3ML Neb) 2.5 mg Q4H PRN INH 07/25/17 20:15 08/24/17 20:14 Albuterol/ Ipratropium (Duoneb) 3 ml Q6R INH 07/25/17 21:00 08/24/17 20:59 07/27/17 08:06 3 ML Cefepime HCl (Consult) 1 ea UD PRN N/A 07/25/17 23:15 08/24/17 23:14 Levofloxacin (Consult) 1 ea UD PRN N/A 07/25/17 23:15 08/24/17 23:14 Guaifenesin (Mucinex Contr Rel Tab) 1,200 mg Q12 PO 07/26/17 10:00 08/25/17 09:59 07/27/17 08:53 1,200 MG Oseltamivir Phosphate (Tamiflu Susp) 30 mg DAILY PO 07/27/17 09:00 07/30/17 09:01 07/27/17 08:55 30 MG Cefepime HCl 1000 mg/Syringe 11 ml @ 5.5 mls/min Q24H IV 07/26/17 20:00 08/01/17 19:59 07/26/17 20:22 5.5 MLS/MIN Metoprolol Succinate (Toprol Xl Tab) 75 mg QAM PO 07/28/17 09:00 08/27/17 08:59 Levofloxacin 500 mg/Prmx 100 ml @ 100 mls/hr Q2D@2000 IV 07/27/17 20:00 08/01/17 19:59 (Indigo Kimble PA-C) Objective Vital Signs Date Time Temp Pulse Resp B/P (MAP) Pulse Ox O2 Delivery O2 Flow Rate FiO2 07/27/17 14:00 70 30 138/67 (90) 98 High Flow Oxygen 45.0 70 07/27/17 12:00 37.6 71 30 138/68 (91) 99 High Flow Oxygen 45.0 70 07/27/17 12:00 High Flow Oxygen 70 07/27/17 10:00 81 30 154/77 (102) 98 High Flow Oxygen 45.0 70 07/27/17 08:06 100 22 98 Nasal Cannula 45.0 60 07/27/17 08:00 High Flow Oxygen 45 BiPAP 07/27/17 08:00 High Flow Oxygen 70 07/27/17 08:00 37.6 90 19 185/81 (115) 97 High Flow Oxygen 45.0 70 07/27/17 06:00 82 28 138/70 (92) 95 High Flow Oxygen 45.0 70 07/27/17 04:00 37.8 76 26 178/69 (105) 94 High Flow Oxygen 45.0 70 07/27/17 04:00 96 High Flow Oxygen 70 07/27/17 02:18 78 20 97 Nasal Cannula 45.0 60 07/27/17 02:00 79 22 150/73 (98) 97 High Flow Oxygen 45.0 70 07/27/17 00:01 36.8 78 29 150/55 (86) 96 High Flow Oxygen 45.0 70 07/26/17 23:59 96 High Flow Oxygen 70 07/26/17 22:00 72 28 99/61 (74) 94 High Flow Oxygen 45.0 70 07/26/17 20:33 90 20 91 Nasal Cannula 45.0 60 07/26/17 20:00 38.4 84 20 133/66 (88) 91 High Flow Oxygen 45.0 70 07/26/17 20:00 92 High Flow Oxygen 70 07/26/17 18:30 84 29 94 07/26/17 18:00 87 26 159/64 (95) 94 High Flow Oxygen 45.0 70 07/26/17 16:24 High Flow Oxygen 07/26/17 16:00 37.2 81 25 127/54 (78) 92 Oxymask 10.0 (Indigo Kimble, JAZMINC) Physical Exam General Appearance: no apparent distress Eyes: PERRL ENT: hearing grossly normal Neck: supple Respiratory/Chest: no respiratory distress, no accessory muscle use, + pertinent finding (coarse breath sounds throughout ) Cardiovascular: regular rate, rhythm Abdomen: normal bowel sounds, non tender, soft Extremities: no pedal edema, no calf tenderness Neurologic/Psychiatric: alert, normal mood/affect, + disoriented (pleasant ) Skin: normal color, warm/dry, no rash (Indigo Kimble, AMANDA-C) Laboratory Results Last 24 Hours Test 07/26/17 16:31 07/27/17 04:31 Bedside Glucose 114 mg/dl White Blood Count 9.70 K/uL Red Blood Count 4.08 M/uL Hemoglobin 12.8 g/dL Hematocrit 38.6 % Mean Corpuscular Volume 94.6 fL Mean Corpuscular Hemoglobin 31.4 pg Mean Corpuscular Hemoglobin Concent 33.2 g/dl Platelet Count 275 K/uL Mean Platelet Volume 10.6 fL Neutrophils (%) (Auto) 79.3 % Lymphocytes (%) (Auto) 9.2 % Monocytes (%) (Auto) 9.8 % Eosinophils (%) (Auto) 0.3 % Basophils (%) (Auto) 0.3 % Neutrophils # (Auto) 7.69 K/uL Lymphocytes # (Auto) 0.89 K/uL Monocytes # (Auto) 0.95 K/uL Eosinophils # (Auto) 0.03 K/uL Basophils # (Auto) 0.03 K/uL RDW Standard Deviation 46.7 fL RDW Coefficient of Variation 13.5 % Immature Granulocyte % (Auto) 1.1 % Immature Granulocyte # (Auto) 0.11 K/uL Prothrombin Time 17.8 SECONDS Prothromb Time International Ratio 1.7 Sodium Level 136 mmol/L Potassium Level 3.6 mmol/L Chloride Level 102 mmol/L Carbon Dioxide Level 27 mmol/L Anion Gap 7.0 mmol/L Blood Urea Nitrogen 28 mg/dl Creatinine 1.67 mg/dl Est Creatinine Clear Calc Drug Dose 22.4 ml/min Estimated GFR () 31.1 Estimated GFR (Non- 26.8 BUN/Creatinine Ratio 16.5 Random Glucose 105 mg/dl Calcium Level 8.8 mg/dl Phosphorus Level 2.9 mg/dl Magnesium Level 1.9 mg/dl (Indigo Kimble PA-C) Assessment and Plan 87 y/o female, with PMHx of HTN, HPL, PEs, pacer. Presents with fever cough and moderate respiratory distress. Initial P02 was in the mid 70s and systolic pressure has been between 85-100. She denies CP, N/V/D or dysuria - she was incontinent of urine and stool on arrival to the ER. Initial CXR may represent CHF and possibly B/L PNM. Labs reveal an elevated troponin, leukocytosis and SYLVIA. She had a normal echo earlier in the year and does not have a history of CHF. Acute hypoxic respiratory failure and sepsis, secondary to influenza type A, ? 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 - O2 protocol, wean as tolerated - DuoNebs QID and PRN for SOB/wheezing - Tamiflu x5 days - IV Levaquin + Cefepime - BCx NGTD; sputum culture pending - MRSA negative UTI POA- E.Coli: Sensitive reviewed, antibiotics as above Acute on chronic diastolic CHF, HTN, HLD, dual-chamber pacemaker, paroxysmal atrial fibrillation: - Treated w/ IV Bumex- cardiology recommends holding further diuresing now - Monitor I&Os and daily weights - ECHO w/ preserved EF and grade II diastolic dysfunction, no significant changes compared to prior - Continue Metoprolol 75 mg daily, Norvasc 5 mg daily, Lipitor 80 mg daily - Continue Coumadin- adjust dose PRN for therapeutic INR Elevated troponin, likely secondary to demand ischemia: - Trop peaked at 2.120 - Cardiology following SYLVIA on CKD stage III- 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 I agree w/ the carty components of her documentation. Pt sleeping upon arrival. Easily arousable. States "I have the flu?" O2 requirement now >75%. vitals - febrile x 24 hours; tachypneic gen - tachypnea, minimal subcostal retraction, but surprisingly comfortable appearing neck - JVD sitting upright heart - RRR, s1, s2 lungs - diffuse wheeze, crackles both bases, mild tachypnea as above abd - soft ext - trace edema b/l A/P: 1. acute hypoxic resp failure - likely multifactorial - CHF + pneumonitis from fluA + possible bacterial pneumonia. treat all components; repeat cxr today now due to increasing FiO2 requirement 2. flu A - tamiflu + supportive care 3. worsening hypoxia from #1 - repeat cxr now; diurese if pulmonary edema still present 4. possible pneumonia b/l - cont broad-spectrum antibiotics 5. e. coli UTI - abx currently selected for the above will suffice 6. dementia 7. CKD stage 4 8. PAF - on coumadin, daily INR, BB management per cardiology code status should be addressed in light of tenuous status Priyank Venegas MD (Priyank Venegas MD)
[2017-07-27] MEDS: WARFARIN SOD 3 MG TAB PO SCH (15:59)
[2017-07-27] MEDS: CEFEPIME IV 1,000 MG in SYRINGE 0 ML IV SCH (19:11)
[2017-07-27] MEDS ORDERED: LEVOFLOXACIN / D5W 750 MG in PREMIXED IN D5W 150 ML IV SCH (20:00)
[2017-07-27] MEDS ORDERED: LEVOFLOXACIN 500MG / D5W IV SCH (20:00)
[2017-07-27] MEDS: METHYLPREDNISOLONE IV 40 MG in SYRINGE 0 ML IV SCH (20:39)
[2017-07-28] VITALS (14 sets, daily range): BP systolic 124–152; BP diastolic 57–76; PULSE 60–88; TEMP 36.6–36.8; O2SAT 93–99
[2017-07-28] MEDS: ALBUT/IPRATROP 3MG/0.5MG NEB 3 ML VIAL INH SCH ×4 (02:32→19:59)
[2017-07-28] MEDS: METHYLPREDNISOLONE IV 40 MG in SYRINGE 0 ML IV SCH ×2 (02:36→07:46)
[2017-07-28] MEDS: LEVOTHYROXINE 75 MCG TAB PO SCH (05:55)
[2017-07-28 06:10] LABS: BASO % 0.2 %; BASO ABS # 0.01 K/uL (0-0.2); HEMATOCRIT 38.1 % (37-47); HEMOGLOBIN 12.6 g/dL (12.0-16.0); IG# 0.02 K/uL (0.00-0.02); LYMPH % 9.5 %; LYMPH ABS # 0.61 K/uL (1.2-3.4); MEAN CORPUSCULAR HEMOGLOBIN 31.7 pg (25-34); MEAN CORPUSCULAR HGB CONC 33.1 g/dl (32-36); MEAN PLATELET VOLUME 10.5 fL (7.4-10.4); MONO % 1.9 %; MONO ABS # 0.12 K/uL (0.11-0.59); NEUT % 88.1 %; NEUT ABS # 5.63 K/uL (1.4-6.5); PLATELET COUNT 271 K/uL (130-400); RED CELL DISTRIBUTION WIDTH CV 13.4 % (11.5-14.5); RED CELL DISTRIBUTION WIDTH SD 46.9 fL (36.4-46.3); WHITE BLOOD COUNT 6.39 K/uL (4.8-10.8)
[2017-07-28 06:54] LABS: CALCIUM 8.9 mg/dl (8.5-10.1); CREATININE 1.48 mg/dl (0.60-1.20); POTASSIUM 4.1 mmol/L (3.5-5.1)
--- NOTE | 2017-07-28 06:57 | DIAGNOSTIC IMAGING REPORT ---
CHEST ONE VIEW PORTABLE CLINICAL HISTORY: R/O viral pna - POS Influenza A pneumonitis COMPARISON STUDY: 07/27/2017 FINDINGS: Moderate stable cardia megaly. Persistent prominence of the pulmonary vasculature. Small left effusion. Right base is unremarkable. IMPRESSION: 1. Unchanged components of congestive heart failure. 2. Consolidative and/or effusion changes left base unchanged. 3. No significant right basilar infiltrative process. 4. Bipolar cardiac pacemaker remains positioned appropriately The above report was generated using voice recognition software. It may contain grammatical, syntax or spelling errors. Electronically signed by: Shahbaz Arango M.D. 07/28/2017 6:56 AM Dictated Date/Time: 07/28/2017 6:53 AM
[2017-07-28 07:03] LABS: PHOSPHORUS 4.4 mg/dl (2.5-4.9)
[2017-07-28] MEDS: OSELTAMIVIR PHOSPHATE SUSP 30 MG/5 ML UDP PO SCH (07:46)
[2017-07-28] MEDS: GUAIFENESIN 600 MG TABCR PO SCH ×2 (07:47→20:53)
[2017-07-28] MEDS: ATORVASTATIN 40 MG TAB PO SCH (07:47)
[2017-07-28] MEDS: PAROXETINE 30 MG TAB PO SCH (07:47)
[2017-07-28] MEDS: DONEPEZIL HCL 10 MG TAB PO SCH (07:47)
[2017-07-28] MEDS: AMLODIPINE BESYLATE 5 MG TAB PO SCH (07:47)
[2017-07-28] MEDS: METOPROLOL SUCC 50MG EXT REL TAB PO SCH (07:48)
[2017-07-28] MEDS: TOLTERODINE TARTRATE LA 4 MG CAPCR PO SCH (07:48)
[2017-07-28] MEDS: PANTOprazole SOD 40 MG TAB PO SCH (07:48)
--- NOTE | 2017-07-28 12:36 | Hospitalist Progress Note ---
Hospitalist Progress Note Date of Service Jul 28, 2017. (Indigo Kimble ., SETH) Subjective Pt evaluation today including: conversation w/ patient, physical exam, lab review, review of studies, review of inpatient medication list Voiding: murray catheter in place Patient sitting up in bed. Denies any complaints. Eating and drinking OK. Limited ROS secondary to dementia. 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 for transfer to med/surg (Indigo Kimble, JAZMINC) Medications Current Inpatient Medications Medications (Trade) Dose Ordered Sig/Rex Route Start Time Stop Time Status Last Admin Dose Admin Amlodipine Besylate (Norvasc Tab) 5 mg DAILY PO 07/26/17 09:00 08/25/17 08:59 07/28/17 07:47 5 MG Atorvastatin Calcium (Lipitor Tab) 80 mg DAILY PO 07/26/17 09:00 08/25/17 08:59 07/28/17 07:47 80 MG Levothyroxine Sodium (Synthroid Tab) 75 mcg DAILYBB PO 07/26/17 06:00 08/25/17 06:59 07/28/17 05:55 75 MCG Pantoprazole Sodium (Protonix Tab) 40 mg DAILY PO 07/26/17 09:00 08/25/17 08:59 07/28/17 07:48 40 MG Tolterodine Tartrate (Detrol LA Cap) 4 mg DAILY PO 07/26/17 09:00 08/25/17 08:59 07/28/17 07:48 4 MG Donepezil HCl (Aricept Tab) 10 mg DAILY PO 07/26/17 09:00 08/25/17 08:59 07/28/17 07:47 10 MG Paroxetine HCl (pAXil) 30 mg DAILY PO 07/26/17 09:00 08/25/17 08:59 07/28/17 07:47 30 MG Warfarin Sodium (Coumadin Tab) 3 mg SuWe@1600 PO 07/27/17 16:00 08/26/17 15:59 07/27/17 15:59 3 MG Warfarin Sodium (Coumadin Tab) 2 mg MoTuThFrSa@1600 PO 07/26/17 16:00 08/25/17 15:59 Future hold Acetaminophen (Tylenol Tab) 650 mg Q4H PRN PO 07/25/17 20:15 08/24/17 20:14 07/26/17 20:24 650 MG Al Hydrox/Mg Hydrox/Simethicone (Maalox Max Susp) 15 ml Q4H PRN PO 07/25/17 20:15 08/24/17 20:14 Magnesium Hydroxide (Milk Of Magnesia Susp) 30 ml Q12H PRN PO 07/25/17 20:15 08/24/17 20:14 Ondansetron HCl (Zofran Inj) 4 mg Q6H PRN IV 07/25/17 20:15 08/24/17 20:14 Morphine Sulfate (MoRPHine SULFATE INJ) 2 mg Q30M PRN IV 07/25/17 20:15 08/08/17 20:14 Polyethylene (Miralax Powder Packet) 17 gm DAILY PRN PO 07/25/17 20:15 08/24/17 20:14 Albuterol Sulfate (Ventolin 0.083% 2.5MG/3ML Neb) 2.5 mg Q4H PRN INH 07/25/17 20:15 08/24/17 20:14 Albuterol/ Ipratropium (Duoneb) 3 ml Q6R INH 07/25/17 21:00 08/24/17 20:59 07/28/17 07:16 3 ML Cefepime HCl (Consult) 1 ea UD PRN N/A 07/25/17 23:15 08/24/17 23:14 Levofloxacin (Consult) 1 ea UD PRN N/A 07/25/17 23:15 08/24/17 23:14 Guaifenesin (Mucinex Contr Rel Tab) 1,200 mg Q12 PO 07/26/17 10:00 08/25/17 09:59 07/28/17 07:47 1,200 MG Oseltamivir Phosphate (Tamiflu Susp) 30 mg DAILY PO 07/27/17 09:00 07/30/17 09:01 07/28/17 07:46 30 MG Cefepime HCl 1000 mg/Syringe 11 ml @ 5.5 mls/min Q24H IV 07/26/17 20:00 08/01/17 19:59 07/27/17 19:11 5.5 MLS/MIN Metoprolol Succinate (Toprol Xl Tab) 75 mg QAM PO 07/28/17 09:00 08/27/17 08:59 1/4/18 07:48 75 MG Levofloxacin (Levaquin Tab) 500 mg Q2D@2100 PO 07/29/17 21:00 07/31/17 21:01 (Indigo Kimble PA-C) Objective Vital Signs Date Time Temp Pulse Resp B/P (MAP) Pulse Ox O2 Delivery O2 Flow Rate FiO2 07/28/17 10:00 66 20 143/57 (85) 96 Nasal Cannula 6.0 07/28/17 08:00 36.8 64 17 147/61 (89) 96 Nasal Cannula 5.0 07/28/17 08:00 96 Nasal Cannula 6.0 70 07/28/17 08:00 Nasal Cannula 07/28/17 07:16 61 18 99 Nasal Cannula 45.0 40 07/28/17 06:00 64 18 130/71 (90) 99 High Flow Oxygen 40.0 65 07/28/17 04:00 36.8 63 24 145/57 (86) 99 High Flow Oxygen 40.0 65 07/28/17 04:00 98 High Flow Oxygen 40.0 65 07/28/17 02:39 68 22 98 Nasal Cannula 45.0 60 07/28/17 02:00 67 25 143/57 (85) 99 High Flow Oxygen 40.0 65 07/28/17 00:01 36.8 70 27 152/71 (98) 97 High Flow Oxygen 45.0 70 07/27/17 23:59 98 High Flow Oxygen 45.0 70 07/27/17 22:00 66 20 142/69 (93) 99 High Flow Oxygen 45.0 70 07/27/17 20:50 68 22 98 Nasal Cannula 45.0 60 07/27/17 20:00 98 High Flow Oxygen 45.0 70 07/27/17 20:00 36.9 68 20 146/60 (88) 98 High Flow Oxygen 45.0 70 07/27/17 18:00 67 18 138/57 (84) 98 High Flow Oxygen 45.0 70 07/27/17 16:00 37.1 78 21 132/69 (90) 98 High Flow Oxygen 45.0 70 07/27/17 16:00 97 High Flow Oxygen 45.0 70 07/27/17 14:00 70 30 138/67 (90) 98 High Flow Oxygen 45.0 70 07/27/17 12:00 37.6 71 30 138/68 (91) 99 High Flow Oxygen 45.0 70 07/27/17 12:00 High Flow Oxygen 70 (Indigo Kimble PA-C) Physical Exam General Appearance: no apparent distress, + pertinent finding (O2 5L NC ) Eyes: normal inspection, PERRL ENT: hearing grossly normal Neck: supple Respiratory/Chest: no respiratory distress, no accessory muscle use, + pertinent finding (coarse breath sounds throughout ) Cardiovascular: regular rate, rhythm, no JVD Abdomen: normal bowel sounds, non tender, soft Extremities: no pedal edema, no calf tenderness Neurologic/Psychiatric: alert, + disoriented (pleasantly) Skin: normal color, warm/dry, no rash (Indigo Kimble PA-C) Laboratory Results Last 24 Hours Test 07/27/17 16:22 07/27/17 19:17 07/28/17 05:41 Bedside Glucose 107 mg/dl 112 mg/dl White Blood Count 6.39 K/uL Red Blood Count 3.97 M/uL Hemoglobin 12.6 g/dL Hematocrit 38.1 % Mean Corpuscular Volume 96.0 fL Mean Corpuscular Hemoglobin 31.7 pg Mean Corpuscular Hemoglobin Concent 33.1 g/dl Platelet Count 271 K/uL Mean Platelet Volume 10.5 fL Neutrophils (%) (Auto) 88.1 % Lymphocytes (%) (Auto) 9.5 % Monocytes (%) (Auto) 1.9 % Eosinophils (%) (Auto) 0.0 % Basophils (%) (Auto) 0.2 % Neutrophils # (Auto) 5.63 K/uL Lymphocytes # (Auto) 0.61 K/uL Monocytes # (Auto) 0.12 K/uL Eosinophils # (Auto) 0.00 K/uL Basophils # (Auto) 0.01 K/uL RDW Standard Deviation 46.9 fL RDW Coefficient of Variation 13.4 % Immature Granulocyte % (Auto) 0.3 % Immature Granulocyte # (Auto) 0.02 K/uL Prothrombin Time 20.3 SECONDS Prothromb Time International Ratio 2.0 Sodium Level 135 mmol/L Potassium Level 4.1 mmol/L Chloride Level 101 mmol/L Carbon Dioxide Level 28 mmol/L Anion Gap 6.0 mmol/L Blood Urea Nitrogen 34 mg/dl Creatinine 1.48 mg/dl Est Creatinine Clear Calc Drug Dose 24.8 ml/min Estimated GFR () 36.0 Estimated GFR (Non- 31.1 BUN/Creatinine Ratio 22.9 Random Glucose 140 mg/dl Calcium Level 8.9 mg/dl Phosphorus Level 4.4 mg/dl Magnesium Level 2.1 mg/dl Procalcitonin 1.94 ng/ml (Indigo Kimble, PAAbimaelC) Assessment and Plan 87 y/o female, with PMHx of HTN, HPL, PEs, pacer. Presents with fever cough and moderate respiratory distress. Initial P02 was in the mid 70s and systolic pressure has been between 85-100. She denies CP, N/V/D or dysuria - she was incontinent of urine and stool on arrival to the ER. Initial CXR may represent CHF and possibly B/L PNM. Labs reveal an elevated troponin, leukocytosis and SYLVIA. She had a normal echo earlier in the year and does not have a history of CHF. Acute hypoxic respiratory failure and sepsis, secondary to influenza type A, ? community-acquired PNA, +/- acute/chronic diastolic CHF: - Admitted to ICU- stable, transfer to med/surg on 07/28 - O2 protocol, wean as tolerated - DuoNebs QID and PRN for SOB/wheezing - Tamiflu x5 days- last day of treatment on 07/30 - Levaquin + Cefepime- therapy started on 07/25- discontinue Cefepime today and continue PO Levaquin - BCx NGTD; sputum culture w/ normal eneida - MRSA negative - Procalcitonin 3.64 --> 1.94 - Leukocytosis- RESOLVED UTI POA- E.Coli: Sensitive reviewed, antibiotics as above Acute on chronic diastolic CHF, HTN, HLD, dual-chamber pacemaker, paroxysmal atrial fibrillation: - Treated w/ IV Bumex- cardiology recommends holding further diuresing now - Monitor I&Os and daily weights - ECHO w/ preserved EF and grade II diastolic dysfunction, no significant changes compared to prior - Continue Metoprolol 75 mg daily, Norvasc 5 mg daily, Lipitor 80 mg daily - Continue Coumadin- adjust dose PRN for therapeutic INR Elevated troponin, likely secondary to demand ischemia: - Trop peaked at 2.120 - Cardiology following SYLVIA on CKD stage III- 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 Discussed with Indigo Kimble PAC and agree with findings and plan as documented in the note. Any exceptions or clarifications are listed here: None Patient here with an exacerbation of acute on chronic diastolic heart failure and pneumonia with a positive flu. We've D escalated her antibiotics to levofloxacin completing her Tamiflu course and adjusting her medication to help with her diastolic heart failure which is impacted by her history of atrial fibrillation she is mildly confused at baseline and currently has no focal active complaints. Patient initially had substantial oxygen requirements this is being tapered down nicely she remains irregular with her cardiac exam her focal air loss is at her bilateral bases with occasional rales Pneumonia likely flu or otherwise will continue oral levofloxacin completing her course of Tamiflu on 08/01 Acute on chronic diastolic heart failure social with atrial fibrillation the patient the patient has had a 4 kg weight loss having been diuresed with Bumex continues with rate control with metoprolol likely will need PT OT evaluation Documented By: Dre Calvillo (Dre Calvillo M.D.)
[2017-07-28] MEDS: WARFARIN SOD 2 MG TAB PO SCH (16:29)
--- NOTE | 2017-07-28 16:29 | Cardiology Follow-Up ---
Subjective Date of Service: Jul 28, 2017. Pt evaluation today including: conversation w/ patient, physical exam, lab review, review of studies, review of inpatient medication list History of Present Illness This is an 87-year-old woman with a history of hypertension, hyperlipidemia, dimensia, dual-chamber pacemaker and paroxysmal atrial fibrillation. She presented with shortness of breath and hypoxemia on 07/25/2017. She is on warfarin, for history of DVT but it will protect her for atrial fibrillation too. She has had normal left ventricular function with possible diastolic dysfunction and moderate aortic insufficiency in the past. She has not noticed any peripheral edema, she does report eating a lot of ham over the holidays. Here she was observed to be hypoxic and to have evidence of congestive heart failure on chest x-ray, additionally her renal function was diminished and she has had elevated troponin measurements. She denies chest discomfort although she is not necessarily a reliable historian. Today she has no complaints, she denies shortness of breath or chest discomfort. Social History Smoking Status: Never Smoker History of Alcohol Use: No Review of Systems Respiratory: No shortness of breath, No dyspnea at rest Cardiac: No chest pain Medications Cardiovascular: Item Value Date Time Metoprolol 75 mg 07/28/17 0900 Succinate QAM/PO 07/28/17 0748 (Toprol Xl Tab) Warfarin Sodium 3 mg 07/27/17 1600 (Coumadin Tab) SuWe@1600/PO 07/27/17 1559 Warfarin Sodium 2 mg 07/26/17 1600 (Coumadin Tab) MoTuThFrSa@1600/PO Amlodipine 5 mg 07/26/17 0900 Besylate DAILY/PO 07/28/17 0747 (Norvasc Tab) Atorvastatin 80 mg 07/26/17 0900 Calcium DAILY/PO 07/28/17 0747 (Lipitor Tab) Objective Vital Signs Past 12 Hours Date Time Temp Pulse Resp B/P (MAP) Pulse Ox O2 Delivery O2 Flow Rate FiO2 07/28/17 15:13 88 16 124/70 (88) 93 Nasal Cannula 4.5 07/28/17 14:10 60 18 96 Nasal Cannula 4.0 07/28/17 12:34 36.6 79 20 146/76 (99) 93 Nasal Cannula 5.0 07/28/17 11:28 36.8 66 20 96 6.0 07/28/17 10:00 66 20 143/57 (85) 96 Nasal Cannula 6.0 07/28/17 08:00 36.8 64 17 147/61 (89) 96 Nasal Cannula 5.0 07/28/17 08:00 96 Nasal Cannula 6.0 70 07/28/17 08:00 Nasal Cannula 07/28/17 07:16 61 18 99 Nasal Cannula 45.0 40 07/28/17 06:00 64 18 130/71 (90) 99 High Flow Oxygen 40.0 65 07/28/17 04:00 36.8 63 24 145/57 (86) 99 High Flow Oxygen 40.0 65 07/28/17 04:00 98 High Flow Oxygen 40.0 65 Last Recorded Weight-Kilograms: 73.800 Physical Exam Constitutional: Level of Distress: NAD Lungs: Respiratory effort: good air movement Auscultation: breath sounds normal, no wheezing Cardiovascular: Heart Auscultation: RRR, no murmurs, no rubs, no gallops Peripheral Pulses: Bruits: none appreciated Extremities: no edema Data Laboratory Results: Last 24 Hours Test 07/27/17 16:22 07/27/17 19:17 07/28/17 05:41 Bedside Glucose 107 mg/dl 112 mg/dl White Blood Count 6.39 K/uL Red Blood Count 3.97 M/uL Hemoglobin 12.6 g/dL Hematocrit 38.1 % Mean Corpuscular Volume 96.0 fL Mean Corpuscular Hemoglobin 31.7 pg Mean Corpuscular Hemoglobin Concent 33.1 g/dl Platelet Count 271 K/uL Mean Platelet Volume 10.5 fL Neutrophils (%) (Auto) 88.1 % Lymphocytes (%) (Auto) 9.5 % Monocytes (%) (Auto) 1.9 % Eosinophils (%) (Auto) 0.0 % Basophils (%) (Auto) 0.2 % Neutrophils # (Auto) 5.63 K/uL Lymphocytes # (Auto) 0.61 K/uL Monocytes # (Auto) 0.12 K/uL Eosinophils # (Auto) 0.00 K/uL Basophils # (Auto) 0.01 K/uL RDW Standard Deviation 46.9 fL RDW Coefficient of Variation 13.4 % Immature Granulocyte % (Auto) 0.3 % Immature Granulocyte # (Auto) 0.02 K/uL Prothrombin Time 20.3 SECONDS Prothromb Time International Ratio 2.0 Sodium Level 135 mmol/L Potassium Level 4.1 mmol/L Chloride Level 101 mmol/L Carbon Dioxide Level 28 mmol/L Anion Gap 6.0 mmol/L Blood Urea Nitrogen 34 mg/dl Creatinine 1.48 mg/dl Est Creatinine Clear Calc Drug Dose 24.8 ml/min Estimated GFR () 36.0 Estimated GFR (Non- 31.1 BUN/Creatinine Ratio 22.9 Random Glucose 140 mg/dl Calcium Level 8.9 mg/dl Phosphorus Level 4.4 mg/dl Magnesium Level 2.1 mg/dl Procalcitonin 1.94 ng/ml Imaging: Chest x-ray appears unchanged Telemetry reviewed: Sinus rhythm, no significant arrhythmia Pacemaker evaluation: Her pacemaker is working well, the battery voltage is excellent. She had one episode of atrial fibrillation since last November, that was just over 2 hours duration and the heart rate was appropriate during the arrhythmia. Assessment and Plan #1. CHF: She does not seem to be in a lot of heart failure, her weight has dropped slightly and her creatinine is now improving. I would probably not diuresis at this point. #2. Elevated cardiac enzymes: Her troponin peaked at 2.1 and have dropped back down, this is still probably consistent with demand ischemia not in acute ischemic process. #3. Hypoxia: I suspect it could be in part congestive heart failure, although her x-ray does not show a lot of findings. There may be a component of a pulmonic process. Her oxygenation is improving although she is still on oxygen at 4.5 L. #4. Pacemaker: Her pacemaker is functioning well, she had only minimal atrial fibrillation identified (only 2 hours total). #5. Hypertension: Her blood pressure is better on increased beta-blockade, her heart rate is acceptable. I will leave her at her current dose. Thank you for allowing me to participate in her care.
[2017-07-29] VITALS (8 sets, daily range): BP systolic 132–168; BP diastolic 62–71; PULSE 63–80; TEMP 36.4–37; O2SAT 91–96
[2017-07-29] MEDS: ALBUT/IPRATROP 3MG/0.5MG NEB 3 ML VIAL INH SCH ×4 (02:15→18:03)
[2017-07-29] MEDS: LEVOTHYROXINE 75 MCG TAB PO SCH (05:46)
[2017-07-29 07:13] LABS: BASO % 0.1 %; BASO ABS # 0.01 K/uL (0-0.2); HEMATOCRIT 36.4 % (37-47); HEMOGLOBIN 12.4 g/dL (12.0-16.0); IG# 0.01 K/uL (0.00-0.02); LYMPH % 15.3 %; LYMPH ABS # 1.12 K/uL (1.2-3.4); MEAN CELL VOLUME 92.6 fL (80-100); MEAN CORPUSCULAR HEMOGLOBIN 31.6 pg (25-34); MEAN CORPUSCULAR HGB CONC 34.1 g/dl (32-36); MEAN PLATELET VOLUME 10.3 fL (7.4-10.4); MONO % 11.5 %; MONO ABS # 0.84 K/uL (0.11-0.59); NEUT ABS # 5.33 K/uL (1.4-6.5); PLATELET COUNT 265 K/uL (130-400); RED CELL DISTRIBUTION WIDTH SD 43.9 fL (36.4-46.3); WHITE BLOOD COUNT 7.31 K/uL (4.8-10.8)
[2017-07-29 07:23] LABS: INR 2.9 (0.9-1.1)
[2017-07-29 07:56] LABS: CALCIUM 8.5 mg/dl (8.5-10.1); CREATININE 1.62 mg/dl (0.60-1.20); POTASSIUM 3.4 mmol/L (3.5-5.1)
[2017-07-29] MEDS ORDERED: POTASSIUM CHLORIDE 20 MEQ TABCR PO ONE (08:15)
[2017-07-29] MEDS: PAROXETINE 30 MG TAB PO SCH (09:06)
[2017-07-29] MEDS: TOLTERODINE TARTRATE LA 4 MG CAPCR PO SCH (09:06)
[2017-07-29] MEDS: AMLODIPINE BESYLATE 5 MG TAB PO SCH (09:06)
[2017-07-29] MEDS: ATORVASTATIN 40 MG TAB PO SCH (09:06)
[2017-07-29] MEDS: GUAIFENESIN 600 MG TABCR PO SCH ×2 (09:07→19:51)
[2017-07-29] MEDS: PANTOprazole SOD 40 MG TAB PO SCH (09:07)
[2017-07-29] MEDS: METOPROLOL SUCC 50MG EXT REL TAB PO SCH (09:07)
[2017-07-29] MEDS: DONEPEZIL HCL 10 MG TAB PO SCH (09:07)
[2017-07-29] MEDS: OSELTAMIVIR PHOSPHATE SUSP 30 MG/5 ML UDP PO SCH (09:09)
--- NOTE | 2017-07-29 11:47 | Hospitalist Progress Note ---
Hospitalist Progress Note Date of Service Jul 29, 2017. (Indigo Kimble ., PA-C) Subjective Pt evaluation today including: conversation w/ patient, conversation w/ family (daughter- on phone ), physical exam, lab review, review of inpatient medication list Voiding: no voiding problems Patient sitting up in bed. Feeling significantly improved today. Alert/oriented x3. +cough. Denies any pain. Eating and drinking OK. No BM documented since admission- start MiraLAX daily. Discussed code status with patient/daughter- wants DNR. Discussed potential need for rehab at discharge- patient/daughter agree. Patient denies any fever, chills, sweats, lightheadedness, dizziness, vision changes, CP, palpitations, edema, SOB, wheezing, abdominal pain, nausea, vomiting, diarrhea, urinary symptoms, melena, numbness/tingling, weakness, muscle/joint pain, anxiety/depression, active bleeding, or new skin discoloration/changes. (Indigo Kimble ., PA-C) Medications Current Inpatient Medications Medications (Trade) Dose Ordered Sig/Rex Route Start Time Stop Time Status Last Admin Dose Admin Amlodipine Besylate (Norvasc Tab) 5 mg DAILY PO 07/26/17 09:00 08/25/17 08:59 07/29/17 09:06 5 MG Atorvastatin Calcium (Lipitor Tab) 80 mg DAILY PO 07/26/17 09:00 08/25/17 08:59 07/29/17 09:06 80 MG Levothyroxine Sodium (Synthroid Tab) 75 mcg DAILYBB PO 07/26/17 06:00 08/25/17 06:59 07/29/17 05:46 75 MCG Pantoprazole Sodium (Protonix Tab) 40 mg DAILY PO 07/26/17 09:00 08/25/17 08:59 07/29/17 09:07 40 MG Tolterodine Tartrate (Detrol LA Cap) 4 mg DAILY PO 07/26/17 09:00 08/25/17 08:59 07/29/17 09:06 4 MG Donepezil HCl (Aricept Tab) 10 mg DAILY PO 07/26/17 09:00 08/25/17 08:59 07/29/17 09:07 10 MG Paroxetine HCl (pAXil) 30 mg DAILY PO 07/26/17 09:00 08/25/17 08:59 07/29/17 09:06 30 MG Warfarin Sodium (Coumadin Tab) 3 mg SuWe@1600 PO 07/27/17 16:00 08/26/17 15:59 07/27/17 15:59 3 MG Warfarin Sodium (Coumadin Tab) 2 mg MoTuThFrSa@1600 PO 07/26/17 16:00 08/25/17 15:59 Future hold 07/28/17 16:29 2 MG Acetaminophen (Tylenol Tab) 650 mg Q4H PRN PO 07/25/17 20:15 08/24/17 20:14 07/26/17 20:24 650 MG Al Hydrox/Mg Hydrox/Simethicone (Maalox Max Susp) 15 ml Q4H PRN PO 07/25/17 20:15 08/24/17 20:14 Magnesium Hydroxide (Milk Of Magnesia Susp) 30 ml Q12H PRN PO 07/25/17 20:15 08/24/17 20:14 Ondansetron HCl (Zofran Inj) 4 mg Q6H PRN IV 07/25/17 20:15 08/24/17 20:14 Morphine Sulfate (MoRPHine SULFATE INJ) 2 mg Q30M PRN IV 07/25/17 20:15 08/08/17 20:14 Polyethylene (Miralax Powder Packet) 17 gm DAILY PRN PO 07/25/17 20:15 08/24/17 20:14 Albuterol Sulfate (Ventolin 0.083% 2.5MG/3ML Neb) 2.5 mg Q4H PRN INH 07/25/17 20:15 08/24/17 20:14 Albuterol/ Ipratropium (Duoneb) 3 ml Q6R INH 07/25/17 21:00 08/24/17 20:59 07/29/17 07:14 3 ML Levofloxacin (Consult) 1 ea UD PRN N/A 07/25/17 23:15 08/24/17 23:14 Guaifenesin (Mucinex Contr Rel Tab) 1,200 mg Q12 PO 07/26/17 10:00 08/25/17 09:59 07/29/17 09:07 1,200 MG Oseltamivir Phosphate (Tamiflu Susp) 30 mg DAILY PO 07/27/17 09:00 07/30/17 09:01 07/29/17 09:09 30 MG Metoprolol Succinate (Toprol Xl Tab) 75 mg QAM PO 07/28/17 09:00 08/27/17 08:59 07/29/17 09:07 75 MG Levofloxacin (Levaquin Tab) 500 mg Q2D@2100 PO 07/29/17 21:00 07/31/17 21:01 (Indigo Kimble, AMANDA-C) Objective Vital Signs Date Time Temp Pulse Resp B/P (MAP) Pulse Ox O2 Delivery O2 Flow Rate FiO2 07/29/17 09:00 Nasal Cannula 4.0 07/29/17 07:47 36.8 69 20 136/70 (92) 92 Nasal Cannula 3.0 07/29/17 07:16 78 18 95 Nasal Cannula 4.0 07/29/17 02:15 68 18 96 Nasal Cannula 4.0 07/29/17 00:16 37.0 63 20 132/68 (89) 94 Room Air 07/29/17 00:00 Nasal Cannula 4.5 07/28/17 19:59 88 18 96 Nasal Cannula 4.0 07/28/17 16:00 93 Nasal Cannula 4.5 07/28/17 15:13 88 16 124/70 (88) 93 Nasal Cannula 4.5 07/28/17 14:10 60 18 96 Nasal Cannula 4.0 07/28/17 12:34 36.6 79 20 146/76 (99) 93 Nasal Cannula 5.0 (Indigo Kimble, AMANDA-C) Physical Exam General Appearance: no apparent distress, + pertinent finding (O2 NC ) Eyes: normal inspection, PERRL ENT: hearing grossly normal Neck: supple Respiratory/Chest: no respiratory distress, no accessory muscle use, + crackles (L lung base ), + wheezing (expiratory wheeze to bilateral upper lung puckett ) Cardiovascular: regular rate, rhythm Abdomen: normal bowel sounds, non tender, soft Extremities: no pedal edema, no calf tenderness Neurologic/Psychiatric: alert, normal mood/affect, oriented x 3 Skin: normal color, warm/dry, no rash (Indigo Kimble, AMANDA-C) Laboratory Results Last 24 Hours Test 07/29/17 06:53 White Blood Count 7.31 K/uL Red Blood Count 3.93 M/uL Hemoglobin 12.4 g/dL Hematocrit 36.4 % Mean Corpuscular Volume 92.6 fL Mean Corpuscular Hemoglobin 31.6 pg Mean Corpuscular Hemoglobin Concent 34.1 g/dl Platelet Count 265 K/uL Mean Platelet Volume 10.3 fL Neutrophils (%) (Auto) 73.0 % Lymphocytes (%) (Auto) 15.3 % Monocytes (%) (Auto) 11.5 % Eosinophils (%) (Auto) 0.0 % Basophils (%) (Auto) 0.1 % Neutrophils # (Auto) 5.33 K/uL Lymphocytes # (Auto) 1.12 K/uL Monocytes # (Auto) 0.84 K/uL Eosinophils # (Auto) 0.00 K/uL Basophils # (Auto) 0.01 K/uL RDW Standard Deviation 43.9 fL RDW Coefficient of Variation 13.0 % Immature Granulocyte % (Auto) 0.1 % Immature Granulocyte # (Auto) 0.01 K/uL Prothrombin Time 30.2 SECONDS Prothromb Time International Ratio 2.9 Sodium Level 134 mmol/L Potassium Level 3.4 mmol/L Chloride Level 101 mmol/L Carbon Dioxide Level 25 mmol/L Anion Gap 8.0 mmol/L Blood Urea Nitrogen 49 mg/dl Creatinine 1.62 mg/dl Est Creatinine Clear Calc Drug Dose 23.0 ml/min Estimated GFR () 32.3 Estimated GFR (Non- 27.9 BUN/Creatinine Ratio 30.4 Random Glucose 130 mg/dl Calcium Level 8.5 mg/dl (Indigo Kimble, PA-C) Assessment and Plan 87 y/o female, with PMHx of HTN, HPL, PEs, pacer. Presents with fever cough and moderate respiratory distress. Initial P02 was in the mid 70s and systolic pressure has been between 85-100. She denies CP, N/V/D or dysuria - she was incontinent of urine and stool on arrival to the ER. Initial CXR may represent CHF and possibly B/L PNM. Labs reveal an elevated troponin, leukocytosis and SYLVIA. She had a normal echo earlier in the year and does not have a history of CHF. Acute hypoxic respiratory failure and sepsis, secondary to influenza type A, ? community-acquired PNA, +/- acute/chronic diastolic CHF: - Admitted to ICU- stable, transferred to med/surg on 1/4 - O2 protocol, wean as tolerated- now on 3-4L - DuoNebs QID and PRN for SOB/wheezing - Tamiflu x5 days- last day of treatment on 07/30 - Levaquin + Cefepime- therapy started on 07/25- discontinue Cefepime on 07/28 and continue PO Levaquin - BCx NGTD; sputum culture w/ normal eneida - MRSA negative - Procalcitonin 3.64 --> 1.94 - Leukocytosis- RESOLVED UTI POA- E.Coli: Sensitives reviewed, antibiotic as above Acute on chronic diastolic CHF, HTN, HLD, dual-chamber pacemaker, paroxysmal atrial fibrillation: - Treated w/ IV Bumex- cardiology recommends holding further diuresing now - Monitor I&Os and daily weights - ECHO w/ preserved EF and grade II diastolic dysfunction, no significant changes compared to prior - Continue Metoprolol 75 mg daily, Norvasc 5 mg daily, Lipitor 80 mg daily - Continue Coumadin- adjust dose PRN for therapeutic INR Elevated troponin, likely secondary to demand ischemia: - Trop peaked at 2.120 - Cardiology following Constipation: MiraLAX daily SYLVIA on CKD stage III- 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 Discussed with Indigo Kimble PAC and agree with findings and plan as documented in the note. Any exceptions or clarifications are listed here: None Patient continues to improve with her influenza pneumonia and urinary tract infection present on admission. She however has become deconditioned. He does have mild acute on chronic diastolic heart failure and a mild elevation of troponin along with acute on chronic kidney failure. These all of required her now to need physical therapy and rehabilitation and likely will need rehabilitation on discharge. Her family is in agreement Her vitals are stable her cardiac exam is regular her lungs have poor air movement almost consistent with a COPD-like experience the patient is pleasantly confused today The patient will be continued to be treated with her levofloxacin and the Tamiflu for her influenza A. Levofloxacin also covers her UTI Continue to watch volume status with regard to both her diastolic heart failure and renal failure PT OT evaluation for possible rehabilitation placement Documented By: Dre Calvillo (Dre Calvillo M.D.)
[2017-07-29] MEDS: POLYETHYLENE (MIRALAX) 17 GM PACK PO SCH (13:36)
[2017-07-29] MEDS: LEVOFLOXACIN 750 MG TAB PO SCH (19:52)
[2017-07-29] MEDS ORDERED: LEVOFLOXACIN 500 MG TAB PO SCH (21:00)
[2017-07-30] VITALS (7 sets, daily range): BP systolic 138–154; BP diastolic 71–72; PULSE 71–79; TEMP 37; O2SAT 90–98
[2017-07-30] MEDS: ALBUT/IPRATROP 3MG/0.5MG NEB 3 ML VIAL INH SCH ×4 (01:38→19:58)
[2017-07-30] MEDS: LEVOTHYROXINE 75 MCG TAB PO SCH (06:26)
[2017-07-30 07:04] LABS: INR 3.2 (0.9-1.1)
[2017-07-30 07:27] LABS: CALCIUM 8.6 mg/dl (8.5-10.1); CREATININE 1.47 mg/dl (0.60-1.20); POTASSIUM 3.7 mmol/L (3.5-5.1)
[2017-07-30] MEDS: AMLODIPINE BESYLATE 5 MG TAB PO SCH (08:10)
[2017-07-30] MEDS: POLYETHYLENE (MIRALAX) 17 GM PACK PO SCH (08:10)
[2017-07-30] MEDS: METOPROLOL SUCC 50MG EXT REL TAB PO SCH (08:11)
[2017-07-30] MEDS: PANTOprazole SOD 40 MG TAB PO SCH (08:11)
[2017-07-30] MEDS: PAROXETINE 30 MG TAB PO SCH (08:12)
[2017-07-30] MEDS: ATORVASTATIN 40 MG TAB PO SCH (08:12)
[2017-07-30] MEDS: DONEPEZIL HCL 10 MG TAB PO SCH (08:12)
[2017-07-30] MEDS: TOLTERODINE TARTRATE LA 4 MG CAPCR PO SCH (08:12)
[2017-07-30] MEDS: GUAIFENESIN 600 MG TABCR PO SCH ×2 (08:13→20:23)
[2017-07-30] MEDS: OSELTAMIVIR PHOSPHATE SUSP 30 MG/5 ML UDP PO SCH (08:16)
[2017-07-30] MEDS ORDERED: FUROSEMIDE INJ 20 MG in SYRINGE 0 ML IV ONE (12:15)
--- NOTE | 2017-07-30 16:35 | Progress Note ---
Subjective Date of Service: Jul 30, 2017. Subjective pt is pleasantly confused at times, does not complain of being short of breath but on exam concerns for decreased aeration of bases possible acute diastolic heart failure. awaiting placement in subacute rehab Problem List Medical Problems: (1) Congestive heart failure Status: Acute (2) Hypotension Status: Acute (3) Hypoxia Status: Acute (4) Sepsis Status: Acute Review of Systems Constitutional: + weakness, No fever, No chills Respiratory: + dyspnea on exertion, No cough, No sputum, No shortness of breath Cardiac: No chest pain, No orthopnea, No PND, No edema Abdomen: No pain, No nausea, No vomiting, No diarrhea Musculoskeletal: No joint pain, No muscle pain Objective Vital Signs Date Time Temp Pulse Resp B/P (MAP) Pulse Ox O2 Delivery O2 Flow Rate FiO2 07/30/17 15:13 37.0 72 22 138/71 (93) 90 Nasal Cannula 2.0 07/30/17 14:27 71 18 96 Nasal Cannula 3.0 07/30/17 08:00 98 Nasal Cannula 2.0 70 07/30/17 07:38 77 18 98 Nasal Cannula 3.0 07/30/17 07:38 37.0 79 20 154/72 (99) 95 2.0 07/30/17 01:39 71 18 94 Nasal Cannula 3.0 07/30/17 00:00 Nasal Cannula 2.0 07/29/17 23:13 36.9 72 20 150/71 (97) 91 Nasal Cannula 2.0 07/29/17 18:03 74 18 91 Nasal Cannula 3.0 Physical Exam General Appearance: WD/WN, + mild distress Eyes: normal inspection, sclerae normal Respiratory/Chest: chest non-tender, + respiratory distress, + decreased breath sounds, + rales Cardiovascular: regular rate, rhythm, no murmur Abdomen: normal bowel sounds, non tender, soft Extremities: no pedal edema, no calf tenderness Neurologic/Psychiatric: alert, oriented x 3 Laboratory Results Last 24 Hours Test 07/30/17 06:16 Prothrombin Time 32.5 SECONDS Prothromb Time International Ratio 3.2 Sodium Level 138 mmol/L Potassium Level 3.7 mmol/L Chloride Level 105 mmol/L Carbon Dioxide Level 27 mmol/L Anion Gap 6.0 mmol/L Blood Urea Nitrogen 50 mg/dl Creatinine 1.47 mg/dl Est Creatinine Clear Calc Drug Dose 25.0 ml/min Estimated GFR () 36.3 Estimated GFR (Non- 31.3 BUN/Creatinine Ratio 33.7 Random Glucose 94 mg/dl Calcium Level 8.6 mg/dl Assessment and Plan 87 y/o female,presented with respiratory distress felt from influenza pneumina, treated but remains with abnormal chest exam, with PMHx of HTN, HPL, PEs, pacer. Acute hypoxic respiratory failure and sepsis, secondary to influenza type A, ? community-acquired PNA, +/- acute/chronic diastolic CHF: - DuoNebs QID and PRN for SOB/wheezing - Tamiflu x5 days- last day of treatment on 07/30 - Levaquin + Cefepime- therapy started on 07/25- discontinue Cefepime on 07/28 and continue PO Levaquin - BCx Negative; sputum culture w/ normal eneida - MRSA negative - Procalcitonin 3.64 --> 1.94 - Leukocytosis- RESOLVED UTI POA- E.Coli: Sensitives reviewed, antibiotic as above Acute on chronic diastolic CHF, HTN, HLD, dual-chamber pacemaker, paroxysmal atrial fibrillation: - Treated w/ IV Bumex- clincal exam again consistent with volume overload, additional diuretics given 07/30 - ECHO w/ preserved EF and grade II diastolic dysfunction, no significant changes compared to prior - Metoprolol 75 mg daily, Norvasc 5 mg daily, Lipitor 80 mg daily - Continue Coumadin- adjust dose PRN for therapeutic INR Elevated troponin,secondary to demand ischemia: - Trop peaked at 2.120 no plans on further testing unless clinical deterioration Constipation: MiraLAX daily SYLVIA on CKD stage III- 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
[2017-07-31] VITALS (12 sets, daily range): BP systolic 146–167; BP diastolic 69–72; PULSE 69–80; TEMP 36.5–36.7; O2SAT 91–97
[2017-07-31] MEDS: ALBUT/IPRATROP 3MG/0.5MG NEB 3 ML VIAL INH SCH ×4 (01:40→18:56)
[2017-07-31] MEDS: LEVOTHYROXINE 75 MCG TAB PO SCH (05:48)
[2017-07-31 06:36] LABS: INR 2.4 (0.9-1.1)
[2017-07-31 06:58] LABS: CALCIUM 8.8 mg/dl (8.5-10.1); CREATININE 1.45 mg/dl (0.60-1.20); POTASSIUM 3.7 mmol/L (3.5-5.1)
[2017-07-31] MEDS: AMLODIPINE BESYLATE 5 MG TAB PO SCH (08:04)
[2017-07-31] MEDS: PANTOprazole SOD 40 MG TAB PO SCH (08:04)
[2017-07-31] MEDS: POLYETHYLENE (MIRALAX) 17 GM PACK PO SCH (08:04)
[2017-07-31] MEDS: METOPROLOL SUCC 50MG EXT REL TAB PO SCH (08:05)
[2017-07-31] MEDS: DONEPEZIL HCL 10 MG TAB PO SCH (08:06)
[2017-07-31] MEDS: ATORVASTATIN 40 MG TAB PO SCH (08:06)
[2017-07-31] MEDS: TOLTERODINE TARTRATE LA 4 MG CAPCR PO SCH (08:07)
[2017-07-31] MEDS: PAROXETINE 30 MG TAB PO SCH (08:07)
[2017-07-31] MEDS: GUAIFENESIN 600 MG TABCR PO SCH ×2 (08:07→20:06)
[2017-07-31] MEDS: WARFARIN SOD 3 MG TAB PO SCH (16:11)
--- NOTE | 2017-07-31 16:13 | Progress Note ---
Subjective Date of Service: Jul 31, 2017. Subjective this pt is still with basilar rales, weak and deconditioned, looking for casemanagement to assist with placement Problem List Medical Problems: (1) Congestive heart failure Status: Acute (2) Hypotension Status: Acute (3) Hypoxia Status: Acute (4) Sepsis Status: Acute Review of Systems Constitutional: + weakness, + fatigue, No fever, No chills Respiratory: + shortness of breath, + dyspnea on exertion, No cough Cardiac: No chest pain, No PND, No edema Abdomen: No pain, No nausea, No vomiting, No diarrhea Female : No dysuria, No urinary frequency Neurologic: No memory loss, No paralysis Psychiatric: No depression symptoms, No anhedonism Objective Vital Signs Date Time Temp Pulse Resp B/P (MAP) Pulse Ox O2 Delivery O2 Flow Rate FiO2 07/31/17 15:46 36.6 76 20 148/72 (97) 91 Nasal Cannula 2.0 07/31/17 14:41 75 18 95 Nasal Cannula 3.0 07/31/17 12:47 80 93 07/31/17 08:00 91 Nasal Cannula 2.0 70 07/31/17 07:47 36.5 74 20 146/69 (94) 91 3.0 07/31/17 07:44 75 18 95 Nasal Cannula 4.0 07/31/17 01:40 76 18 93 Nasal Cannula 3.0 07/31/17 00:00 97 Nasal Cannula 2.0 70 07/30/17 20:00 77 18 97 Nasal Cannula 3.0 07/30/17 20:00 97 Nasal Cannula 2.0 70 Physical Exam General Appearance: WD/WN, no apparent distress Neck: supple, no JVD Respiratory/Chest: chest non-tender, normal breath sounds, + accessory muscle use, + rhonchi Cardiovascular: regular rate, rhythm Abdomen: normal bowel sounds, non tender, soft Extremities: no pedal edema, no calf tenderness Neurologic/Psychiatric: alert, oriented x 3 Laboratory Results Last 24 Hours Test 07/31/17 05:23 Prothrombin Time 24.3 SECONDS Prothromb Time International Ratio 2.4 Sodium Level 139 mmol/L Potassium Level 3.7 mmol/L Chloride Level 105 mmol/L Carbon Dioxide Level 28 mmol/L Anion Gap 6.0 mmol/L Blood Urea Nitrogen 43 mg/dl Creatinine 1.45 mg/dl Est Creatinine Clear Calc Drug Dose 25.6 ml/min Estimated GFR () 36.9 Estimated GFR (Non- 31.8 BUN/Creatinine Ratio 29.6 Random Glucose 96 mg/dl Calcium Level 8.8 mg/dl Assessment and Plan 87 y/o female,presented with respiratory distress felt from influenza pneumina, treated but remains with abnormal chest exam, with PMHx of HTN, HPL, PEs, pacer. Acute hypoxic respiratory failure and sepsis, secondary to influenza type A, ? community-acquired PNA, +/- acute/chronic diastolic CHF: - DuoNebs QID and PRN for SOB/wheezing - Tamiflu x5 days- last day of treatment on 07/30 - Levaquin + Cefepime- therapy started on 07/25- discontinue Cefepime on 07/28 and continue PO Levaquin - BCx Negative; sputum culture w/ normal eneida - MRSA negative - Procalcitonin 3.64 --> 1.94 - Leukocytosis- RESOLVED UTI POA- E.Coli: Sensitives reviewed, antibiotic as above Acute on chronic diastolic CHF, HTN, HLD, dual-chamber pacemaker, paroxysmal atrial fibrillation: - Treated w/ IV Bumex- clincal exam again consistent with volume overload, additional diuretics given 07/30 - ECHO w/ preserved EF and grade II diastolic dysfunction, no significant changes compared to prior - Metoprolol 75 mg daily, Norvasc 5 mg daily, Lipitor 80 mg daily - Continue Coumadin- adjust dose PRN for therapeutic INR Elevated troponin,secondary to demand ischemia: - Trop peaked at 2.120 no plans on further testing unless clinical deterioration Constipation: MiraLAX daily SYLVIA on CKD stage III- 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
[2017-07-31] MEDS: BOOST VANILLA PO SCH (20:06)
[2017-07-31] MEDS: LEVOFLOXACIN 750 MG TAB PO SCH (20:06)
[2017-08-01] VITALS (8 sets, daily range): BP systolic 139–161; BP diastolic 68–78; PULSE 67–78; TEMP 36.5–36.7; O2SAT 90–97
[2017-08-01] MEDS: ALBUT/IPRATROP 3MG/0.5MG NEB 3 ML VIAL INH SCH ×4 (01:34→19:05)
[2017-08-01] MEDS: LEVOTHYROXINE 75 MCG TAB PO SCH (06:08)
[2017-08-01 06:14] LABS: INR 1.9 (0.9-1.1)
[2017-08-01 06:35] LABS: CALCIUM 8.7 mg/dl (8.5-10.1); CREATININE 1.22 mg/dl (0.60-1.20); POTASSIUM 3.6 mmol/L (3.5-5.1)
[2017-08-01] MEDS: DONEPEZIL HCL 10 MG TAB PO SCH (07:59)
[2017-08-01] MEDS: ATORVASTATIN 40 MG TAB PO SCH (07:59)
[2017-08-01] MEDS: GUAIFENESIN 600 MG TABCR PO SCH ×2 (07:59→20:06)
[2017-08-01] MEDS: PANTOprazole SOD 40 MG TAB PO SCH (08:00)
[2017-08-01] MEDS: METOPROLOL SUCC 50MG EXT REL TAB PO SCH (08:00)
[2017-08-01] MEDS: TOLTERODINE TARTRATE LA 4 MG CAPCR PO SCH (08:00)
[2017-08-01] MEDS: POLYETHYLENE (MIRALAX) 17 GM PACK PO SCH (08:00)
[2017-08-01] MEDS: AMLODIPINE BESYLATE 5 MG TAB PO SCH (08:00)
[2017-08-01] MEDS: PAROXETINE 30 MG TAB PO SCH (08:00)
[2017-08-01] MEDS: BOOST VANILLA PO SCH ×2 (08:09→17:02)
--- NOTE | 2017-08-01 08:32 | Hospitalist Progress Note ---
Hospitalist Progress Note Date of Service Aug 01, 2017. (Simona Cornelius PA-C) Subjective Pt evaluation today including: conversation w/ patient, physical exam, chart review, lab review, review of studies Pain: None PO Intake: Good Voiding: no voiding problems The patient was seen and examined this morning. Pt reports doing well today. She slept well, eating ok, and reports her breathing has been good. She has a cough which is nonproductive and occasional. Denies chest pain, flutter, palpitation. She has not been ambulating much other than from bed to chair, and requires help to walk about the room. The pt reports she lives at home alone, and her daughter is available to help with ADLs. After discharge she is planning on rehab for short term. She denies any other acute complaints. ROS: 6 point ROS reviewed and otherwise negative. (Simona Cornelius PA-C) Objective Vital Signs Date Time Temp Pulse Resp B/P (MAP) Pulse Ox O2 Delivery O2 Flow Rate FiO2 08/01/17 07:28 36.6 68 18 161/72 (101) 96 2.0 08/01/17 06:51 67 18 93 Nasal Cannula 2.5 08/01/17 01:34 74 18 91 Nasal Cannula 2.0 08/01/17 00:00 97 Nasal Cannula 2.0 70 07/31/17 23:30 36.7 74 20 167/70 (102) 94 Nasal Cannula 2.0 07/31/17 20:00 97 Nasal Cannula 2.0 70 07/31/17 18:57 69 18 92 Nasal Cannula 2.0 07/31/17 16:00 91 Nasal Cannula 2.0 70 07/31/17 15:46 36.6 76 20 148/72 (97) 91 Nasal Cannula 2.0 07/31/17 14:41 75 18 95 Nasal Cannula 3.0 07/31/17 12:47 80 93 (Simona Cornelius PA-C) Physical Exam General Appearance: WD/WN, no apparent distress Eyes: PERRL, EOMI ENT: hearing grossly normal, pharynx normal, + pertinent finding (MMM, small pedunculated growth on inside of left buccal mucosa. +slightly hard of hearing) Neck: supple, no JVD Respiratory/Chest: no respiratory distress, no accessory muscle use, + pertinent finding (On 2 L via NC, crackles heard throughout in bases and midfields, improved at apexes. + nonproductive cough.) Cardiovascular: regular rate, rhythm Abdomen: normal bowel sounds, non tender, soft Extremities: non-tender, no pedal edema, no calf tenderness Neurologic/Psychiatric: alert, normal mood/affect, + pertinent finding ( oriented to place, not date, answers questions appropriately.) Skin: normal color, warm/dry (Simona Cornelius, JAZMINC) Laboratory Results Last 24 Hours Test 08/01/17 05:27 Prothrombin Time 20.1 SECONDS Prothromb Time International Ratio 1.9 Sodium Level 140 mmol/L Potassium Level 3.6 mmol/L Chloride Level 106 mmol/L Carbon Dioxide Level 27 mmol/L Anion Gap 7.0 mmol/L Blood Urea Nitrogen 33 mg/dl Creatinine 1.22 mg/dl Est Creatinine Clear Calc Drug Dose 30.4 ml/min Estimated GFR () 45.5 Estimated GFR (Non- 39.2 BUN/Creatinine Ratio 26.7 Random Glucose 100 mg/dl Calcium Level 8.7 mg/dl (Simona Cornelius, PA-C) Assessment and Plan 87 y/o female,presented with respiratory distress felt from influenza pneumina, treated but remains with abnormal chest exam, with PMHx of HTN, HPL, PEs, pacer. Acute hypoxic respiratory failure and sepsis, secondary to influenza type A, ? community-acquired PNA, +/- acute/chronic diastolic CHF: - DuoNebs QID and PRN for SOB/wheezing - Tamiflu x5 days- last day of treatment on 07/30 - Levaquin + Cefepime- therapy started on 07/25- discontinue Cefepime on 07/28 and continue PO Levaquin (started on 07/26) - BCx Negative; sputum culture w/ normal eneida - MRSA negative - Procalcitonin 3.64 --> 1.94 - Leukocytosis- RESOLVED UTI POA- E.Coli: Sensitives reviewed, antibiotic course completed as above Acute on chronic diastolic CHF, HTN, HLD, dual-chamber pacemaker, paroxysmal atrial fibrillation: - Treated w/ IV Bumex- clincal exam again consistent with volume overload, additional diuretics given 07/30 - ECHO w/ preserved EF and grade II diastolic dysfunction, no significant changes compared to prior - Metoprolol 75 mg daily, Norvasc 5 mg daily, Lipitor 80 mg daily - Continue Coumadin- adjust dose PRN for therapeutic INR - INR = 1.9 today Elevated troponin,secondary to demand ischemia: - Trop peaked at 2.120 no plans on further testing unless clinical deterioration Constipation: MiraLAX daily SYLVIA on CKD stage III- 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 Await CM rehab referrals. (Simona Cornelius, SETH) PA Physician Supervision Note: I interviewed and examined the patient. Discussed with Simona Cornelius PAC and agree with findings and plan as documented in the note. Any exceptions or clarifications are listed here: None Patient remains pleasantly confused she is markedly deconditioned which is suggesting she may need subacute rehabilitation daughter was at the bedside and does not to supportive that this needs to be done I asked that she see her mother participate in physical therapy her breathing is gently and slowly improving her chest x-ray looks markedly better she still has bibasilar rales and is requiring oxygen supplementation to maintain saturations greater than 90 Cardiac exam is distant but regular lungs have bibasilar rales good air movement no wheezes Influenza pneumonia and urinary tract infection present on admission with acute hypoxic respiratory failure improved with supportive care she's completed her Tamiflu therapy Acute diastolic heart failure requiring diuretic dosing she's had some acute renal failure associated with this and her diuretics have been held slightly returning to normal dosing improving her clinical picture Physical therapy is suggesting subacute rehabilitation may need to be in place family is considering this Documented By: Dre Calvillo (Dre Calvillo M.D.)
[2017-08-02] VITALS (9 sets, daily range): BP systolic 131–147; BP diastolic 68–72; PULSE 71–79; TEMP 36.6–37; O2SAT 90–97
[2017-08-02] MEDS: ALBUT/IPRATROP 3MG/0.5MG NEB 3 ML VIAL INH SCH ×4 (01:41→19:04)
[2017-08-02] MEDS: LEVOTHYROXINE 75 MCG TAB PO SCH (05:25)
[2017-08-02] MEDS: TOLTERODINE TARTRATE LA 4 MG CAPCR PO SCH (07:37)
[2017-08-02] MEDS: DONEPEZIL HCL 10 MG TAB PO SCH (07:37)
[2017-08-02] MEDS: PANTOprazole SOD 40 MG TAB PO SCH (07:38)
[2017-08-02] MEDS: POLYETHYLENE (MIRALAX) 17 GM PACK PO SCH (07:38)
[2017-08-02] MEDS: ATORVASTATIN 40 MG TAB PO SCH (07:38)
[2017-08-02] MEDS: GUAIFENESIN 600 MG TABCR PO SCH ×2 (07:38→21:05)
[2017-08-02] MEDS: PAROXETINE 30 MG TAB PO SCH (07:38)
[2017-08-02] MEDS: AMLODIPINE BESYLATE 5 MG TAB PO SCH (07:38)
[2017-08-02] MEDS: METOPROLOL SUCC 50MG EXT REL TAB PO SCH (07:39)
[2017-08-02] MEDS: BOOST VANILLA PO SCH ×2 (08:15→17:45)
--- NOTE | 2017-08-02 13:53 | Hospitalist Progress Note ---
Hospitalist Progress Note Date of Service Aug 02, 2017. (Simona Cornelius PA-C) Subjective Pt evaluation today including: conversation w/ patient, physical exam, chart review, lab review, review of studies Pain: None PO Intake: Good Voiding: no voiding problems The patient was seen and examined this morning. Pt reports doing pretty well today. She has no acute complaints. Pt notes her breathing feels the same, is on 1 L via NC. She hasn't gotten up to ambulate much and doesn't feel like it this morning. She was encouraged to get up with PT/nursing later this afternoon. Pt denies any fever, chills or sweats. Discussed with patient about possible discharge to [facility] tomorrow. - Confirmed this with CM. OT re-eval to occur today for insurance auth. ROS: 6 point ROS reviewed and otherwise negative. (Simnoa Cornelius, SETH) Objective Vital Signs Date Time Temp Pulse Resp B/P (MAP) Pulse Ox O2 Delivery O2 Flow Rate FiO2 08/02/17 08:00 Nasal Cannula 1.0 08/02/17 07:05 72 18 91 Nasal Cannula 1.0 08/02/17 07:01 36.6 79 18 147/72 (97) 94 Room Air 08/02/17 01:41 74 18 93 Nasal Cannula 1.0 08/02/17 00:00 97 Nasal Cannula 1.0 70 08/01/17 23:33 36.7 73 18 147/68 (94) 95 2.0 08/01/17 19:06 78 18 92 Nasal Cannula 1.0 08/01/17 16:00 Nasal Cannula 2.0 08/01/17 15:17 36.5 77 18 139/78 (98) 94 Nasal Cannula 2.0 08/01/17 14:29 78 18 90 Nasal Cannula 1.0 (Simona Cornelius, SETH) Physical Exam Notes: General Appearance: WD/WN, no apparent distress Eyes: PERRL, EOMI ENT: hearing grossly normal, pharynx normal, + pertinent finding (MMM, small pedunculated growth on inside of left buccal mucosa, +slightly hard of hearing) Neck: supple, no JVD Respiratory/Chest: no respiratory distress, no accessory muscle use, + pertinent finding (On 2 L via NC, crackles heard throughout in bases and midfields, improved at apexes. + nonproductive cough.) Cardiovascular: regular rate, rhythm Abdomen: normal bowel sounds, non tender, soft Extremities: non-tender, no pedal edema, no calf tenderness Neurologic/Psychiatric: alert, normal mood/affect, + pertinent finding ( oriented to place, not date, answers questions appropriately.) Skin: normal color, warm/dry (Simona Cornelius, PASascha) Assessment and Plan 87 y/o female,presented with respiratory distress felt from influenza pneumina, treated but remains with abnormal chest exam, with PMHx of HTN, HPL, PEs, pacer. Acute hypoxic respiratory failure and sepsis, secondary to influenza type A, ? community-acquired PNA, +/- acute/chronic diastolic CHF: - DuoNebs QID and PRN for SOB/wheezing - Tamiflu x5 days- last day of treatment on 07/30 - Levaquin + Cefepime- therapy started on 07/25- discontinue Cefepime on 07/28 and continue PO Levaquin (started on 07/26) - finish 7 day course today. - BCx Negative; sputum culture w/ normal eneida - MRSA negative - Procalcitonin 3.64 --> 1.94 - Leukocytosis- RESOLVED UTI POA- E.Coli: Sensitives reviewed, antibiotic course completed as above Acute on chronic diastolic CHF, HTN, HLD, dual-chamber pacemaker, paroxysmal atrial fibrillation: - Checking 1 view CXR today with crackles - pt denies SOB, on 1 L via NC and no acute complaints but will see if needs more diuresis. 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 Daughter, Fawn was updated over the phone and plans to call her sister. All her questions and concerns were addressed. (Simona Cornelius, PA-C) i personally examined pt and verified all carty points lew Cornelius PAC feeling ok just weak. breathing better vitals noted nad breathing unlabored no pallor or icterus hypoxia due to flu/pneumonia - improving deconditioning/weakness - for SNF w rehab goal once set up (Macario Vargas D.O.)
--- NOTE | 2017-08-02 15:14 | DIAGNOSTIC IMAGING REPORT ---
CHEST ONE VIEW PORTABLE CLINICAL HISTORY: assess pulmonary edema congestive failure COMPARISON STUDY: 07/28/2017 FINDINGS: Findings of pulmonary edema and/or congestive failure mildly improved radiographically. Improved aeration left lung base. Mild decrease in cardiac size as well as prominence of pulmonary vasculature. Permanent bipolar cardiac pacemaker in good position. IMPRESSION: Improving congestive failure. The above report was generated using voice recognition software. It may contain grammatical, syntax or spelling errors. Electronically signed by: Shahbaz Arango M.D. 08/02/2017 3:13 PM Dictated Date/Time: 08/02/2017 3:12 PM
[2017-08-02] MEDS: WARFARIN SOD 2 MG TAB PO SCH (17:44)
[2017-08-03] MEDS: ALBUT/IPRATROP 3MG/0.5MG NEB 3 ML VIAL INH SCH ×3 (01:49→14:11)
[2017-08-03] MEDS: LEVOTHYROXINE 75 MCG TAB PO SCH (06:23)
[2017-08-03 06:48] VITALS: PULSE 68; O2SAT 95
[2017-08-03 07:08] VITALS: BP 135/69; PULSE 63; TEMP 36.4; O2SAT 95
[2017-08-03] MEDS: DONEPEZIL HCL 10 MG TAB PO SCH (08:29)
[2017-08-03] MEDS: BOOST VANILLA PO SCH (08:30)
[2017-08-03] MEDS: TOLTERODINE TARTRATE LA 4 MG CAPCR PO SCH (08:30)
[2017-08-03] MEDS: POLYETHYLENE (MIRALAX) 17 GM PACK PO SCH (08:30)
[2017-08-03] MEDS: ATORVASTATIN 40 MG TAB PO SCH (08:30)
[2017-08-03] MEDS: PANTOprazole SOD 40 MG TAB PO SCH (08:31)
[2017-08-03] MEDS: METOPROLOL SUCC 50MG EXT REL TAB PO SCH (08:31)
[2017-08-03] MEDS: AMLODIPINE BESYLATE 5 MG TAB PO SCH (08:31)
[2017-08-03] MEDS: PAROXETINE 30 MG TAB PO SCH (08:31)
[2017-08-03] MEDS: GUAIFENESIN 600 MG TABCR PO SCH (08:32)
[2017-08-03] MEDS ORDERED: GFNSR600 PO (12:34)
[2017-08-03] MEDS ORDERED: Enteral Nutrition Formula PO (12:34)
[2017-08-03] MEDS ORDERED: MRLP17 PO (12:34)
[2017-08-03] MEDS ORDERED: METO-217 PO (12:34)
--- NOTE | 2017-08-03 12:42 | Discharge Instructions ---
Discharge Instructions Date of Service Aug 03, 2017. Admission Reason for Admission: Respiratory Distress Discharge Discharge Diagnosis / Problem: Influenza A, pneumonia, and mild CHF exacerbation Discharge Goals Goal(s): Decrease discomfort, Improve function, Increase independence, Improve disease control Activity Recommendations Activity Level: Up Ad Adelaida Therapies: Physical Therapy, Occupational Therapy Lifting Limitations: no more than 25 pounds, gradually increase as tolerated Exercise/Sports Limitations: gradually increase as tolerated Shower/Bathe: no limitations (wih assistance) . Additional Information Patient informed of condition: Yes Advance Directives: No DNR: No Level of Care: Acute Rehab Communicable Disease: No Prognosis: Stable Oxygen at (LPM): none Instructions / Follow-Up Instructions / Follow-Up You were admitted to [facility] with respiratory distress and diagnosed with influenza A infection, pneumonia and mild CHF exacerbation. During your stay here you were treated with supportive care and completed a course of tamiflu for the flu. You were treated with antibiotics or the pneumonia and completed a 7 day course while in the hospital. Your breathing also improved with diuresis for mild CHF exacerbation. You were found to have an e. coli urinary tract infection which was also treated with antibiotics while in the hospital. Imaging studies which were completed include CXR, and were abnormal showing pulmonary congestion which was treated as above. Medications: Continue taking your medications as above. Metoprolol succinate has been increased to 75 mg daily. Continue Physical therapy and occupational therapy daily. Appointments: Follow up with your Primary Care Provider at [facility] within 24-48 hours. Follow up with your Primary Care Provider within 1 week of discharge from [facility]. Current Hospital Diet Patient's current hospital diet: Low Sodium Diet (2gm Na) Discharge Diet Recommended Diet: Low Sodium Diet (2gm Na) Pending Studies Studies pending at discharge: no Laboratory Results Hemoglobin A1c Test 07/26/17 04:58 Range/Units Estimated Average Glucose 126 mg/dl Hemoglobin A1c 6.0 H 4.5-5.6 % Medical Emergencies . Who to Call and When: Medical Emergencies: If at any time you feel your situation is an emergency, please call 911 immediately. . Non-Emergent Contact Non-Emergency issues call your: Primary Care Provider Call Non-Emergent contact if: you have a fever, temperature is above 100.5, your pain is not controlled, your pain is worsening, your pain is unusual for you, your pain is concerning you, you have any medication questions other concerns with your health. Call 911 or go directly to the Emergency Department if you experience any of the following: Chest pain, chest tightness, shortness of breath, abdominal pain , lightheadedness, dizziness, gastrointestinal bleeding, or have any other concerns regarding your health. . Past History Medical & Surgical History: (1) Influenza A (2) Pneumonia (3) Diastolic CHF, acute on chronic . "Provider Documentation" section prepared by Sherine Cornelius. . Core Measure Problem Core Measures: None [place] Drug Monitoring Program Search Results: no issues identified
--- NOTE | 2017-08-03 13:03 | Discharge Summary ---
Discharge Summary Date of Service Aug 03, 2017. Discharge Summary Admission Date: Jul 25, 2017 at 21:03 Discharge Date: Aug 03, 2017 Discharge Disposition: long term facility ([facility]) Principal Diagnosis: Acute hypoxic respiratory failure and sepsis, secondary to influenza type A Problems/Secondary Diagnoses: Medical Problems: (1) Acute systolic CHF (congestive heart failure) (2) Diastolic CHF, acute on chronic (3) Influenza A (4) Mobitz type 2 second degree heart block (5) Pneumonia (6) Respiratory distress (7) Troponin I above reference range Immunizations: Have You Had Influenza Vaccine: No Influenza Vaccine Date: Mar 27, 2010 History of Tetanus Vaccine?: Yes History of Pneumococcal: Yes Pneumococcal Date: Jun 12, 2008 History of Hepatitis B Vaccine: Unknown Procedures: SINGLE VIEW CHEST 07/25/17 IMPRESSION: 1. Cardiomegaly and cardiac pacemaker. There is evidence of congestive failure. 2. There are diffuse bilateral airspace opacities, likely represent interstitial edema. Correlate clinically for evidence of superimposed pneumonia. 3. Small pleural effusions are identified. ULTRASOUND VENOUS DOPPLER LWR EXT BILA 07/26/17 IMPRESSION: No evidence of lower extremity DVT. CHEST ONE VIEW PORTABLE 07/26/17 FINDINGS: Left subclavian pacer with leads in the right atrium and right ventricular apex. Atherosclerosis of aortic arch. Cardiac silhouette remains enlarged. Mediastinal calcified lymph nodes noted. Prominence of the bilateral nisha and pulmonary vasculature with perihilar and basilar predominant opacities stable to slightly decreased bilaterally. However, increased size of left pleural effusion. Only trace right pleural effusion evident. No pneumothorax. Calcifications project over the left upper quadrant within the spleen. Degenerative changes of the left glenohumeral joint and spine IMPRESSION: 1. Findings consistent with slight interval decrease in pulmonary edema though increased size of left pleural effusion. 2. Trace right pleural effusion. 3. Cardiomegaly. CHEST ONE VIEW PORTABLE 07/27/17 FINDINGS: Cardiac silhouette is moderately enlarged. Left subclavian pacer is again noted which appears unchanged. Atherosclerosis of the aorta. No pneumothorax. Trace right with small to moderate left pleural effusions. Pulmonary vascular congestion with mild pulmonary edema is unchanged. Patchy bibasilar alveolar opacities, left greater the right also appear unchanged. Bones appear grossly intact. IMPRESSION: 1. Cardiomegaly with unchanged mild pulmonary edema. 2. Trace right and small moderate left pleural effusions with bibasilar opacities suggesting atelectasis or pneumonitis. CHEST ONE VIEW PORTABLE 07/28/17 FINDINGS: Cardiac silhouette is moderately enlarged. Left subclavian pacer is again noted which appears unchanged. Atherosclerosis of the aorta. No pneumothorax. Trace right with small to moderate left pleural effusions. Pulmonary vascular congestion with mild pulmonary edema is unchanged. Patchy bibasilar alveolar opacities, left greater the right also appear unchanged. Bones appear grossly intact. IMPRESSION: 1. Cardiomegaly with unchanged mild pulmonary edema. 2. Trace right and small moderate left pleural effusions with bibasilar opacities suggesting atelectasis or pneumonitis. CHEST ONE VIEW PORTABLE 07/28/17 IMPRESSION: 1. Unchanged components of congestive heart failure. 2. Consolidative and/or effusion changes left base unchanged. 3. No significant right basilar infiltrative process. 4. Bipolar cardiac pacemaker remains positioned appropriately CHEST ONE VIEW PORTABLE 08/02/17 IMPRESSION: Improving congestive failure. Consultations: Cardiology Herbarium Curator Medication Reconciliation New Medications: Guaifenesin Ext Rel (Mucinex Ext Rel) 600 Mg Tabcr 1200 MG PO Q12 for 14 Days, #28 DOSE Polyethylene (Miralax) 17 Gm Pow 17 GM PO DAILY for 30 Days, #30 DOSE [Enteral Nutrition Formula] () 1 CAN LIQD 1 CAN PO BIDM for 30 Days, #60 DOSE Changed Medications: Metoprolol Succinate (Toprol Xl) 50 Mg Tabcr 75 MG PO DAILY for 30 Days, #45 TAB (Changed from: Metoprolol Succinate ( Metoprolol Succinate ER) 50 Mg Tabcr 50 Mg PO DAILY) Continued Medications: Amlodipine Besylate (Norvasc) 5 Mg Tab 5 MG PO DAILY, TAB Atorvastatin (Lipitor) 80 Mg Tab 80 MG PO DAILY, TAB Donepezil Hydrochloride (Donepezil Hcl) 10 Mg Tab 10 MG PO DAILY Ferrous Sulfate (Iron) 325 Mg Tab 325 MG PO DAILY Levothyroxine Sodium (Levothyroxine Sodium) 75 Mcg Tab 75 MCG PO DAILY, TAB Multiple Vitamins W/ Minerals (Centrum Silver 50+Women) 1 Tab Tab 1 TAB PO DAILY Pantoprazole (Protonix) 40 Mg Tab 40 MG PO DAILY, TAB Paroxetine Hcl (Paroxetine Hcl) 30 Mg Tab 30 MG PO DAILY Tolterodine Tartrate (Tolterodine Tartrate ER) 4 Mg Cap 4 MG PO DAILY Warfarin Sodium (Warfarin Sodium) 2 Mg Tab 2 MG PO 5XWK, TAB TAKE 2 MG EVERY TUESDAY,TUESDAY,TUESDAY,TUESDAY AND TUESDAY OR OTHERWISE DIRECTED TO TAKE BY ANTICOAGULATION CLINIC/MD Warfarin Sodium (Warfarin Sodium) 2 Mg Tab 3 MG PO 2XWK, TAB TAKE ONE AND ONE HALF TABLETS (3 MG) EVERY TUESDAY AND TUESDAY OR OTHERWISE DIRECTED TO TAKE BY ANTICOAGULATION CLINIC/MD Discharge Exam The patient was seen and examined this morning. Pt reports doing about the same as yesterday. She has no acute complaints, pts breathing is stable. She was on 1L O2 yesterday and today is sating well on room air. She has a mild cough which is about the same. ROS: No fever, chills, sweats, chest pain, shortness of breath, abd pain, n/v/d/ c, leg pain. Pt ambulating about the room but requires assistance with walker. 10 point ROS reviewed and otherwise negative. PE: General Appearance: WD/WN, no apparent distress Eyes: PERRL, EOMI ENT: hearing grossly normal, pharynx normal, + pertinent finding (MMM, small pedunculated growth on inside of left buccal mucosa, +slightly hard of hearing) Neck: supple, no JVD Respiratory/Chest: no respiratory distress, no accessory muscle use, + pertinent finding (On room air, crackles heard throughout in bases and mid- puckett, improved at apexes. + nonproductive cough.) Cardiovascular: regular rate, rhythm Abdomen: normal bowel sounds, non tender, soft Extremities: non-tender, no pedal edema, no calf tenderness Neurologic/Psychiatric: alert, normal mood/affect, + pertinent finding ( oriented to place, not date, answers questions appropriately.) Skin: normal color, warm/dry Hospital Course History of Present Illness Source: patient 87 y/o F Hx HTN, HPL, PEs, pacer. Presents with fever cough and moderate respiratory distress. Initial P02 was in the mid 70s and systolic pressure has been between 85-100. She denies CP, N/V/D or dysuria - she was incontinent of urine and stool on arrival to the ER. Initial CXR may represent CHF and possibly B/L PNM. Labs reveal an elevated troponin, leukocytosis and SYLVIA. She had a normal echo earlier in the year and does not have a history of CHF. Physical Exam General Appearance: + pertinent finding (Overweight, elderly female - AAO x 2 - no distress while wearing BIPAP) Head: normocephalic Eyes: normal inspection ENT: normal ENT inspection, pharynx normal Neck: supple, + JVD Respiratory/Chest: chest non-tender, + crackles (BL to mid lungs) Cardiovascular: regular rate, rhythm, + systolic murmur, + pertinent finding ( faint hear sounds) Abdomen/GI: normal bowel sounds, non tender, soft Back: normal inspection, no CVA tenderness Extremities/Musculoskelatal: normal inspection, no calf tenderness Neurologic/Psych: flanging roll operator II-XII nml as tested, no motor/sensory deficits, alert Skin: normal color, warm/dry Hospital Course: 87 y/o female,presented with respiratory distress felt from influenza pneumina, treated but remains with abnormal chest exam, with PMHx of HTN, HPL, PEs, pacer. Acute hypoxic respiratory failure and sepsis, secondary to influenza type A, ? community-acquired PNA, +/- acute/chronic diastolic CHF: - DuoNebs QID and PRN for SOB/wheezing - Tamiflu x5 days- last day of treatment on 07/30 - Levaquin + Cefepime- therapy started on 07/25- discontinue Cefepime on 07/28 and continue PO Levaquin (started on 07/26) - finish 7 day course on 08/02 - BCx Negative; sputum culture w/ normal eneida - MRSA negative - Procalcitonin 3.64 --> 1.94 - Leukocytosis- RESOLVED UTI POA- E.Coli: Sensitives reviewed, antibiotic course completed as above Acute on chronic diastolic CHF, HTN, HLD, dual-chamber pacemaker, paroxysmal atrial fibrillation: - 1 view CXR on 08/02 showing improving pulm edema- crackles likely result of respiratory infection and will take some time to clear. - Pt denies SOB, on room air and no acute complaints. - Treated w/ IV Bumex- clincal exam again consistent with volume overload, additional diuretics given 07/30. - ECHO w/ preserved EF and grade II diastolic dysfunction, no significant changes compared to prior - Metoprolol 75 mg daily, Norvasc 5 mg daily, Lipitor 80 mg daily - Continue Coumadin- resumed 2 mg MTWThF as this was on hold, monitor for therapeutic INR - INR = 1.9 on 08/02 - follow as outpatient. Elevated troponin,secondary to demand ischemia: - Trop peaked at 2.120 no plans on further testing unless clinical deterioration Constipation: MiraLAX daily SYLVIA on CKD stage III- baseline neuropsychologist 1.00- cautious use of diuretics - Cr improved to 1.22 on 08/02 Hypothyroidism: Continue Synthroid 75 mcg daily Dementia: remains at mild confused baseline continue Aricept Depression, seems stable anxiety: Paxil 30 mg daily GI prophylaxis: Protonix daily DVT ppx: Coumadin Code Status: LEVEL V, DNR Disposition: From home, lives alone, PT/OT on board, discharge to [facility] today. i personally examined pt and verified all carty points lew Cornelius PAC feeling better still weak, explained role of SNF as rehab - ultimate goal is for home. she expresses understanding vitals noted nad breathing unlabored, lungs without wheeze but scattered rhonchorous sounds hypoxia/flu/pneumonia - improving - stable for SNF deconditioning - for SNF / rehab emphasis Total Time Spent: Greater than 30 minutes This includes examination of the patient, discharge planning, medication reconciliation, and communication with other providers. Discharge Instructions Please refer to the electronic Patient Visit Report (Discharge Instructions) for additional information. Follow-Up Follow up with your Primary Care Provider at [facility] within 24-48 hours, and with PCP within 1 week of discharge from [facility]. Additional Copies To Fabian Matthew M.D.
[2017-08-03 13:41] VITALS: BP 135/69; TEMP 36.4; O2SAT 95
[2017-08-03 14:12] VITALS: PULSE 66; O2SAT 90
== END 2017-08-03 15:23 | DRG 871 ==
LOC: EDBD 17:43 → C.EDB 17:44 → ENRESERV 20:22 → CANRESERV 20:22 → C.MSICU 21:03 → UNDOADMIN 21:03 → CANBEDREQ 21:06 → ENRESERV 21:14 → C.MSICU 07-28 11:46 → C.4E 07-28 11:46
PROVIDERS: ADMIT Internal Medicine; ATTEND Family Medicine
DX: A41.9 Sepsis, unspecified organism (principal); J18.9 Pneumonia, unspecified organism; I50.31 Acute diastolic (congestive) heart failure; I24.8 Other forms of acute ischemic heart disease; N39.0 Urinary tract infection, site not specified; Z66 Do not resuscitate; K59.00 Constipation, unspecified; I95.9 Hypotension, unspecified; F32.9 Major depressive disorder, single episode, unspecified; K21.9 Gastro-esophageal reflux disease without esophagitis; F03.90 Unspecified dementia, unspecified severity, without behavioral disturbance, psychotic disturbance, mood disturbance, and anxiety; I48.0 Paroxysmal atrial fibrillation; F41.9 Anxiety disorder, unspecified; I44.1 Atrioventricular block, second degree; Z95.0 Presence of cardiac pacemaker; Z87.01 Personal history of pneumonia (recurrent); Z87.891 Personal history of nicotine dependence; Z79.01 Long term (current) use of anticoagulants; Z88.0 Allergy status to penicillin; Z86.711 Personal history of pulmonary embolism; Z86.718 Personal history of other venous thrombosis and embolism

== ENCOUNTER → 2017-08-08 | Outpatient (CLI) | payer BC ==
[~2017-08-08] MED LIST changes: -AMLO-110 PO; +AMLO5TAB2 PO; -ARC5 PO; -ATEN50TA PO; +DONE1TAB26 PO; +Enteral Nutrition Formula PO; +FERR1TAB23 PO; +GFNSR600 PO; -LEVO75TA PO; +LEVO75TA5 PO; +METO-217 PO; +MRLP17 PO; +MULT-1092 PO; -PARO1TAB27 PO; +PARO30TA6 PO; +TOLT1CAP3 PO; -TOLT4CAP PO; -WARF2TAB8 PO; +WARF4TAB43 PO
[2017-08-08 11:53] LABS: INR 1.9 (0.9-1.1)
== END ==
LOC: C.LABCC 09:34
PROVIDERS: ATTEND Internal Medicine
DX: I26.99 Other pulmonary embolism without acute cor pulmonale (principal)

== ENCOUNTER → 2017-08-17 | Outpatient (CLI) | payer BC ==
[2017-08-17 10:26] LABS: INR 1.5 (0.9-1.1)
== END ==
LOC: C.LABCC 08:31
PROVIDERS: ATTEND Internal Medicine
DX: R41.82 Altered mental status, unspecified (principal); I26.99 Other pulmonary embolism without acute cor pulmonale

== ENCOUNTER → 2017-08-23 | Outpatient (CLI) | payer BC | END | disposition home or self-care (01) | LOC: C.LABSPEC 17:40 → C.LABCC 17:40 | PROVIDERS: ATTEND Internal Medicine | DX: R31.9 Hematuria, unspecified (principal) ==

== ENCOUNTER → 2017-08-25 | Outpatient (CLI) | payer BC ==
[2017-08-25 18:46] LABS: INR 1.8 (0.9-1.1)
== END | disposition home or self-care (01) ==
LOC: C.LABSPEC 18:10
PROVIDERS: ATTEND Internal Medicine
DX: Z51.81 Encounter for therapeutic drug level monitoring (principal); Z79.01 Long term (current) use of anticoagulants; I26.99 Other pulmonary embolism without acute cor pulmonale

== ENCOUNTER → 2017-10-07 | Outpatient (CLI) | payer BC ==
[~2017-10-07] MED LIST changes: -METO-217 PO
[2017-10-07 18:24] LABS: INR 1.4 (0.9-1.1)
== END | disposition home or self-care (01) ==
LOC: C.LABSPEC 17:47
PROVIDERS: ATTEND Internal Medicine
DX: Z86.711 Personal history of pulmonary embolism (principal); Z79.01 Long term (current) use of anticoagulants

== ENCOUNTER → 2017-11-11 | Outpatient (CLI) | payer BC ==
[2017-11-11 19:21] LABS: INR 2.2 (0.9-1.1)
== END | disposition home or self-care (01) ==
LOC: C.LABSPEC 18:11
PROVIDERS: ATTEND Internal Medicine
DX: Z86.711 Personal history of pulmonary embolism (principal); Z79.01 Long term (current) use of anticoagulants

== ENCOUNTER → 2017-11-25 | Outpatient (CLI) | payer BC | END | disposition home or self-care (01) | LOC: C.RC 15:33 | PROVIDERS: ATTEND Internal Medicine | DX: R06.02 Shortness of breath (principal) ==